=== PATIENT | female | born 1995 | race Caucasian/White ===

== ENCOUNTER → 2019-06-29 12:24 | Outpatient (BNVA) | payer MEDICAID, SELFPAY | PROVIDERS: Family Provider Physician Assistant Medical; PCP Physician Assistant Medical; Visit Provider Psychiatry & Neurology Psychiatry | DX: F60.3 Borderline personality disorder (principal); F41.1 Generalized anxiety disorder | CPT/HCPCS: 99213 ==

== ENCOUNTER → 2019-07-26 11:43 | Outpatient (BNVA) | payer MEDICAID, SELFPAY | PROVIDERS: Family Provider Physician Assistant Medical; PCP Physician Assistant Medical; Visit Provider Social Worker Clinical | DX: F41.1 Generalized anxiety disorder (principal); F33.1 Major depressive disorder, recurrent, moderate | CPT/HCPCS: 90834 ==

== ENCOUNTER → 2019-08-12 11:50 | Outpatient (BNVA) | payer MEDICAID, SELFPAY | PROVIDERS: Family Provider Physician Assistant Medical; PCP Physician Assistant Medical; Visit Provider Specialist | DX: G43.711 Chronic migraine without aura, intractable, with status migrainosus (principal); G40.309 Generalized idiopathic epilepsy and epileptic syndromes, not intractable, without status epilepticus | CPT/HCPCS: 64615; 95970; 99213; J0585 ==

== ENCOUNTER → 2019-08-24 12:09 | Outpatient (BNVA) | payer MEDICAID, SELFPAY | PROVIDERS: Family Provider Physician Assistant Medical; PCP Physician Assistant Medical; Visit Provider Social Worker Clinical | DX: F41.1 Generalized anxiety disorder (principal); F33.1 Major depressive disorder, recurrent, moderate | CPT/HCPCS: 90834 ==

== ENCOUNTER → 2019-09-08 12:04 | Outpatient (BNVA) | payer MEDICAID, SELFPAY | PROVIDERS: Family Provider Physician Assistant Medical; PCP Physician Assistant Medical; Visit Provider Social Worker Clinical | DX: F41.1 Generalized anxiety disorder (principal); F33.2 Major depressive disorder, recurrent severe without psychotic features | CPT/HCPCS: 90834 ==

== ENCOUNTER → 2019-09-21 08:10 | Outpatient (BNVA) | payer MEDICAID, SELFPAY | PROVIDERS: Family Provider Physician Assistant Medical; PCP Physician Assistant Medical; Visit Provider Social Worker Clinical | DX: F41.1 Generalized anxiety disorder (principal); F33.2 Major depressive disorder, recurrent severe without psychotic features | CPT/HCPCS: 90834 ==

== ENCOUNTER → 2019-09-22 08:38 | Outpatient (BNVA) | payer MEDICAID, SELFPAY | PROVIDERS: Family Provider Physician Assistant Medical; PCP Physician Assistant Medical; Visit Provider Psychiatry & Neurology Psychiatry | DX: F60.3 Borderline personality disorder (principal); F41.1 Generalized anxiety disorder | CPT/HCPCS: 99213 ==

== ENCOUNTER → 2019-10-13 08:40 | Outpatient (BNVA) | payer MEDICAID, SELFPAY | PROVIDERS: Family Provider Physician Assistant Medical; PCP Physician Assistant Medical; Visit Provider Social Worker Clinical | DX: F60.3 Borderline personality disorder (principal); F41.1 Generalized anxiety disorder | CPT/HCPCS: 90834 ==

== ENCOUNTER → 2019-10-27 07:51 | Outpatient (BNVA) | payer MEDICAID, SELFPAY | PROVIDERS: Family Provider Physician Assistant Medical; PCP Physician Assistant Medical; Visit Provider Social Worker Clinical | DX: F60.3 Borderline personality disorder (principal); F41.1 Generalized anxiety disorder | CPT/HCPCS: 90834 ==

== ENCOUNTER → 2019-11-04 11:58 | Outpatient (BNVA) | payer MEDICAID, SELFPAY | PROVIDERS: Family Provider Physician Assistant Medical; PCP Physician Assistant Medical; Visit Provider Specialist | DX: G43.711 Chronic migraine without aura, intractable, with status migrainosus (principal); G40.309 Generalized idiopathic epilepsy and epileptic syndromes, not intractable, without status epilepticus | CPT/HCPCS: 64615; 95971; 99213; J0585 ==

== ENCOUNTER → 2019-11-08 08:18 | Outpatient (BNVA) | payer MEDICAID, SELFPAY | PROVIDERS: Family Provider Physician Assistant Medical; PCP Physician Assistant Medical; Visit Provider Social Worker Clinical | DX: F60.3 Borderline personality disorder (principal); F41.1 Generalized anxiety disorder | CPT/HCPCS: 90832 ==

== ENCOUNTER → 2020-04-25 11:34 | Outpatient (BNVA) | payer MEDICAID, SELFPAY | PROVIDERS: Family Provider Physician Assistant Medical; PCP Physician Assistant Medical; Visit Provider Specialist | DX: G40.309 Generalized idiopathic epilepsy and epileptic syndromes, not intractable, without status epilepticus (principal); G43.711 Chronic migraine without aura, intractable, with status migrainosus | CPT/HCPCS: 95971; 99215 ==

== ENCOUNTER 2020-09-13 15:09 | Emergency (ER) | payer MEDICAID, SELFPAY ==
[2020-09-13 15:11] VITALS: BP 142/74; PULSE 97; RESP 18; TEMP 37; O2SAT 98; BMI 39.3
--- NOTE | 2020-09-13 15:27 | XR_ITS ---
WS: [id number] Portable AP upright chest, 09/13/2020 Clinical Data: reduced breath sounds Comparison: PA and lateral chest, 04/15/2018. Findings: No nodules, masses or effusions are seen. The heart is normal. The pulmonary vascularity is not increased. No pneumonia or pneumothorax is seen. There is an electronic device overlying the lef t hilum. XR/XR chest 1V portable [id number] Impression: Negative chest.
--- NOTE | 2020-09-13 15:35 | ED_ITS ---
HPI - Seizure General: Chief Complaint: Seizure Stated Complaint: SEIZURE Time Seen by Provider: 09/13/20 15:20 History of Present Illness: HPI Narrative: The patient is a 24-year-old female with past medical history seizure disorder and poor compliance with her Keppra. She comes to the ER after having 3 seizures today. She has a small scratch to her left forehead but otherwise offers no complaints other than chronic memory problems. She says she also bit her left side of her tongue. There is no significant laceration or bleeding seen in the ED. She says she does not know if she took her Keppra today or yesterday and averages 2 to 3 days/week of ta dell the pill. Her last seizure was 1 month ago when she says she usually has 1/month and that today is atypical for her. She also has past medical history of borderline personality disorder, chronic migraines, and chronic anxiety. MD complaint: seizure Description of Episode: loss of consciousness and tonic-clonic movement Trauma: Yes Seizure History: Yes Place: Home Associated symptoms: Deny chest pain or confusion Review of Systems General: Reports: 10 or more systems reviewed and unremarkable except in HPI and below Const: Denies: fatigue Eyes: Denies: change in vision, blurry vision or eye redness ENMT: Denies: throat pain, swelling of lips/tongue, ear or mastoid pain or nasal congestion Card: Denies: chest pain, palpitations, irregular heart rhythm, edema, dyspnea on exertion or orthopnea Resp: Denies: dyspnea, productive cough or non-productive cough GI: Denies: abdominal pain, diarrhea or GI cramping : Denies: flank pain, difficulty voiding, urinary frequency or urinary urgency Musc: Denies: neck pain, back pain, extremity pain, joint pain, joint redness, limited range of motion or muscle weakness Skin/Breast: Denies: rash, pruritus, erythema, skin pain or skin tenderness Neuro: Denies: headache(s), numbness in extremities, weakness in extremities, sensory changes, difficulty walking, dizziness, confusion or Slurred speech present Psych: Denies: anxiety or depression Endo: Denies: polyuria All/Imm: Denies: urticaria, throat swelling or tongue swelling PFS ED PFSH: Surgical History (Updated 04/25/20 @ 12:56 by Toshia Campos MD) Status post placement of VNS (vagus nerve stimulation) device Family History Other Diabetes Social History Smoking and tobacco status: never smoked Second hand smoke exposure: Yes Smoking risk assessment/counseling performed?: Yes Tobacco counseling given: counseling >3 minutes History of recent travel: No Female Reproductive History: Date of last menstrual period: 12/03/19 Physical Exam Const: COMMON NORMALS: no acute distress, average body habitus, patient oriented x3, no limitations, healthy appearing, alert and well nourished GENERAL APPEARANCE: cooperative, comfortable, well kempt and well developed ORIENTATION/CONSCIOUSNESS: Yes awake, Yes oriented to person, Yes oriented to place and Yes oriented to time HENMT: COMMON NORMALS: normocephalic, external ears normal and Normal external nose present HEAD & SCALP: normal to inspection and normocephalic NOSE: Normal external nose present EXTERNAL EAR: Yes external ears normal MOUTH: Normal oral and palatal mucosa present THROAT: posterior oropharynx normal Eye: COMMON NORMALS: Equal, round and reactive pupils present and EOMs intact bilaterally GENERAL EYE: appearance normal, both eyes and all related structures PUPIL: Yes Equal, round and reactive pupils present Neck/C-Spine: COMMON NORMALS: full ROM, no lymphadenopathy, no meningeal signs and no JVD GENERAL: Yes normal visual inspection Lymph: LYMPHATIC: no lymphadenopathy noted Chest: COMMONS NORMALS: normal inspection of the chest and normal palpation of entire chest wall Resp: COMMON NORMALS: normal respiratory effort, No retractions, No use of accessory muscles, clear to auscultation bilaterally and percussion normal EFFORT & INSPECTION: Yes able to speak in complete sentences AUSCULTATION: clear to auscultation bilaterally PERCUSSION: percussion normal Cardio: COMMON NORMALS: no JVD, regular rate, regular rhythm, S1 normal heart sound present, S2 normal heart sound present and Peripheral pulses 2+ throughout RATE: regular rate RHYTHM: regular rhythm HEART SOUNDS: S1 normal heart sound present and S2 normal heart sound present PERIPHERAL PULSES: Peripheral pulses 2+ throughout GI: COMMON NORMALS: Normal to inspection, nondistended, normoactive bowel sounds present, Soft to palpation, non-tender and no masses INSPECTION: Yes normal to inspection PALPATION: Yes Soft to palpation : COMMON NORMALS: Yes no CVA tenderness BLADDER/KIDNEY EXAM: Yes no CVA tenderness Back/Pelvis: COMMON NORMALS: no CVA tenderness, thoracic and lumbar spine normal to inspection, no thoracic nor lumbar tenderness and thoraco-lumbar ROM normal Extremity: COMMON NORMALS: normal to inspection, full ROM, capillary refill normal, no joint enlargement and no pedal edema GENERAL: Yes normal exam except as noted Neuro: COMMON NORMALS: patient oriented x3, CN's II-XII intact bilaterally, moves all extremities, no focal motor deficits, no sensory deficits noted and gait normal SENSORIUM/ORIENTATION: Yes alert, Yes oriented to person, Yes oriented to place and Yes oriented to time MENINGEAL SIGNS: Yes no meningeal signs Psych: COMMON NORMALS: mental status grossly normal, Normal thought process present, cooperative, normal affect and speech normal APPEARANCE: Yes well kempt ATTITUDE: Yes calm SPEECH: Yes normal speech THOUGHT PROCESS: Normal thought process present Skin: COMMON NORMALS: no rashes or lesions noted GENERAL SKIN EXAM: no rashes or lesions noted Course Vital Signs: Vital signs: Vital Signs Temperature 98.6 F 09/13/20 15:11 Pulse Rate 97 09/13/20 17:50 Respiratory Rate 18 09/13/20 17:50 Blood Pressure 126/78 09/13/20 17:50 Pulse Oximetry 99 09/13/20 17:50 MDM - Seizure MDM Narrative: Medical decision making narrative: The patient came in after a few seizures today at home. She is noncompliant with all of her medications and takes them 2 to 3 days a week she says. She has been stable here and loaded her with the Keppra IV. She is stable for discharge. Discussed with her medication compliance and follow-up with neurology within a week. ER with worsening symptoms Lab Data: Labs: Lab Results 09/13/20 09/13/20 09/13/20 Range/Units 15:57 15:57 15:57 WBC 9.6 (4.0-10.0) 10^3/ uL RBC 4.73 (4.1-5.3) 10^6/u L Hgb 14.4 (11.5-15.3) g/dL Hct 44.2 (37.0-47.0) % MCV 93.4 (81-99) fL MCH 30.4 (28.0-34.0) pg MCHC 32.6 (30.0-36.0) g/dL RDW 12.1 (12.1-15.1) % Plt Count 258 (130-400) 10^3/c mm MPV 10.5 H (7.4-10.4) fL Neut % (Auto) 73.9 % Lymph % (Auto) 18.9 % [place] % (Auto) 5.8 % Eos % (Auto) 0.7 % Baso % (Auto) 0.5 % Neut # (Auto) 7.11 (1.8-7.7) 10^3/u L Lymph # (Auto) 1.8 (0.8-4.8) 10^3/u L [place] # (Auto) 0.6 (0.2-0.9) 10^3/u L Eos # (Auto) 0.1 (0.0-0.8) 10^3/u L Baso # (Auto) 0.1 (0.0-0.1) 10^3/u L Nucleated RBC % (a uto) 0 % Nucleated RBCs # 0.0 /100WBC Sodium 136 (136-145) mmol/L Potassium 3.6 (3.5-5.1) mmol/L Chloride 100 (98-107) mmol/L Carbon Dioxide 18 L (22-29) mmol/L Anion Gap 21.6 H (5-19) BUN 15 (6-20) mg/dL Creatinine 0.9 (0.5-0.9) mg/dL GFR Calculation 78.3 L (90-130) mL/min Glucose 77 (65-115) mg/dL Calculated Osmolal ity 282 L (285-295) mOsm/k g Lactate 1.4 (0.5-2.2) mmol/L Calcium 9.0 (8.5-10.5) mg/dL Total Bilirubin 0.3 (0.15-1.2) mg/dL AST 15 (0-32) U/L ALT 13 (0-33) U/L Alkaline Phosphata se 113 H (35-105) IU/L Creatine Kinase 73 (26-192) U/L Total Protein 7.8 (6.6-8.7) g/dL Albumin 4.5 (3.5-5.2) g/dL Globulin 3.3 (1.3-4.6) g/dL HCG, Qual (Negative) Ethyl Alcohol < 10 (0-10) mg/dL 09/13/20 Range/Units 15:57 WBC (4.0-10.0) 10^3/ uL RBC (4.1-5.3) 10^6/u L Hgb (11.5-15.3) g/dL Hct (37.0-47.0) % MCV (81-99) fL MCH (28.0-34.0) pg MCHC (30.0-36.0) g/dL RDW (12.1-15.1) % Plt Count (130-400) 10^3/c mm MPV (7.4-10.4) fL Neut % (Auto) % Lymph % (Auto) % [place] % (Auto) % Eos % (Auto) % Baso % (Auto) % Neut # (Auto) (1.8-7.7) 10^3/u L Lymph # (Auto) (0.8-4.8) 10^3/u L [place] # (Auto) (0.2-0.9) 10^3/u L Eos # (Auto) (0.0-0.8) 10^3/u L Baso # (Auto) (0.0-0.1) 10^3/u L Nucleated RBC % (a uto) % Nucleated RBCs # /100WBC Sodium (136-145) mmol/L Potassium (3.5-5.1) mmol/L Chloride (98-107) mmol/L Carbon Dioxide (22-29) mmol/L Anion Gap (5-19) BUN (6-20) mg/dL Creatinine (0.5-0.9) mg/dL GFR Calculation (90-130) mL/min Glucose (65-115) mg/dL Calculated Osmolal ity (285-295) mOsm/k g Lactate (0.5-2.2) mmol/L Calcium (8.5-10.5) mg/dL Total Bilirubin (0.15-1.2) mg/dL AST (0-32) U/L ALT (0-33) U/L Alkaline Phosphata se (35-105) IU/L Creatine Kinase (26-192) U/L Total Protein (6.6-8.7) g/dL Albumin (3.5-5.2) g/dL Globulin (1.3-4.6) g/dL HCG, Qual Negative (Negative) Ethyl Alcohol (0-10) mg/dL Discharge Plan Discharge Patient Disposition: Home Clinical Impression: Epileptic seizure Condition: Stable Prescriptions: No Action lamotrigine [Lamictal] 200 mg tablet 200 mg PO BID Qty: 60 RF: 2 propranolol 10 mg tablet 10 mg PO DAILY Qty: 30 RF: 2 levetiracetam [Keppra] 500 mg tablet 500 mg PO BID Qty: 60 RF: 2 One Daily Women[facility] 18 mg iron-400 mcg-450 mg Ca tablet 1 tab PO DAILY RF: 0 metronidazole [Flagyl] 500 mg tablet 500 mg PO BID Qty: 7 RF: 0 lorazepam 2 mg/mL concentrate 2 mg SUBLINGUAL DAILY Qty: 30 RF: 1 buspirone 5 mg tablet 5 mg PO BID Qty: 60 RF: 2 ibuprofen 100 mg Tablet 200 mg PO Q6H PRN (Reason: Pain) RF: 0 Zonegran 100 mg capsule 600 mg PO DAILY RF: 0 escitalopram oxalate 20 mg tablet 20 mg PO DAILY RF: 0 Discharge Orders: Discharge ED (Routine); Ordered 09/13/20 Ordered By: Lebron Barone Referrals: Kin Walker [Primary Care Provider] - Discharge Diet: Advance as tolerated Discharge Activity: Resume usual activity Patient Instructions: Recurrent Seizures Adult (ED), Opioid Safety Activity Restrictions/Additional Instructions: You have likely had a few seizures today from not taking your medication. We have loaded you in your veins with the Keppra. Now please go home and take your medications. Return to the ER with worsening symptoms or more seizures. Follow- up with neurology within a week to discuss further. Coding Level of Care Code ED Donor Support Technician for James [facility] Exam Comprehensive
[2020-09-13] MEDS: LORazepam 2 mg/mL INJ 1 mL 0.5 MG IVP (15:53)
[2020-09-13] MEDS: sodium chloride 0.9% 1,000 ML 999 ML IV (15:53)
[2020-09-13 16:09] LABS: Basophils # 0.1 10^3/uL (0.0-0.1); Basophils % 0.5 %; Eosinophils # 0.1 10^3/uL (0.0-0.8); Eosinophils % 0.7 %; Hematocrit 44.2 % (37.0-47.0); Hemoglobin 14.4 g/dL (11.5-15.3); Lymphocytes # 1.8 10^3/uL (0.8-4.8); Lymphocytes % 18.9 %; Mean Corpuscular HGB Conc 32.6 g/dL (30.0-36.0); Mean Corpuscular Hemoglobin 30.4 pg (28.0-34.0); Mean Corpuscular Volume 93.4 fL (81-99); Mean Platelet Volume 10.5 fL (7.4-10.4); Monocytes # 0.6 10^3/uL (0.2-0.9); Monocytes % 5.8 %; Neutrophils # 7.11 10^3/uL (1.8-7.7); Neutrophils % 73.9 %; Nucleated Red Blood Cells % 0 %; Platelet Count 258 10^3/cmm (130-400); Red Blood Count 4.73 10^6/uL (4.1-5.3); Red Cell Distribution Width 12.1 % (12.1-15.1); White Blood Count 9.6 10^3/uL (4.0-10.0)
--- NOTE | 2020-09-13 16:13 | PC.PHAR ---
PT STATES THAT SHE HAS MOVED A COUPLE OF TIMES IN THE LAST FEW MONTHS. SHE MOVED IN WITH HER FATHER, AND SHE SAID THAT SHE MISSED A LOT OF HER DOCTOR VISITS, SO DIDN'T GET REFILLS. SHE HAS SINCE MOVED BACK IN WITH HER MOTHER AND IS TRYING TO GET EVERYTHING SET BACK UP TO GET HER MEDICATION REGULARLY.
[2020-09-13 16:29] LABS: Alanine Aminotransferase 13 U/L (0-33); Albumin Level 4.5 g/dL (3.5-5.2); Alcohol Level < 10 mg/dL (0-10); Alkaline Phosphatase 113 IU/L (35-105); Anion Gap 21.6 (5-19); Aspartate Amino Transferase 15 U/L (0-32); Blood Urea Nitrogen 15 mg/dL (6-20); Carbon Dioxide 18 mmol/L (22-29); Chloride 100 mmol/L (98-107); Creatine Phosphokinase 73 U/L (26-192); Globulin 3.3 g/dL (1.3-4.6); Glomerular Filtration Rate 78.3 mL/min (90-130); Glucose 77 mg/dL (65-115); Osmolality Calculated 282 mOsm/kg (285-295); Potassium 3.6 mmol/L (3.5-5.1); Sodium 136 mmol/L (136-145); Total Bilirubin 0.3 mg/dL (0.15-1.2); Total Protein 7.8 g/dL (6.6-8.7)
[2020-09-13 16:44] LABS: Lactate (Lactic Acid level) 1.4 mmol/L (0.5-2.2)
[2020-09-13 16:46] LABS: HCG, Serum Qual Negative (Negative)
[2020-09-13 17:03] VITALS: BP 160/84; PULSE 87; RESP 18; O2SAT 97
[2020-09-13 17:50] VITALS: BP 126/78; PULSE 97; RESP 18; O2SAT 99
[2020-09-13 19:18] VITALS: BP 115/71; RESP 18; O2SAT 98
[2020-09-16 15:46] LABS: Levetiracetam Keppra <2.0 mcg/mL
== END 2020-09-13 19:20 | disposition home or self-care (01) ==
PROVIDERS: Emergency Provider Family Medicine; PCP Physician Assistant Medical
DX: G40.909 Epilepsy, unspecified, not intractable, without status epilepticus (principal); Z77.22 Contact with and (suspected) exposure to environmental tobacco smoke (acute) (chronic)
CPT/HCPCS: 71045; 80053; 80177; 80307; 82550; 83605; 84703; 85025; 96361; 96374; 96375; 99284; J1953; J2060; J7030

== ENCOUNTER → 2020-09-19 08:15 | Outpatient (BNVA) | payer MEDICAID, SELFPAY | PROVIDERS: PCP Physician Assistant Medical; Visit Provider Specialist | DX: G40.A09 Absence epileptic syndrome, not intractable, without status epilepticus (principal); G40.309 Generalized idiopathic epilepsy and epileptic syndromes, not intractable, without status epilepticus; G43.711 Chronic migraine without aura, intractable, with status migrainosus; Z96.82 Presence of neurostimulator | CPT/HCPCS: 95971; 99215 ==

== ENCOUNTER → 2020-10-19 09:56 | Outpatient (BNVA) | payer MEDICAID, SELFPAY | PROVIDERS: PCP Physician Assistant Medical; Visit Provider Nurse Practitioner Psychiatric/Mental Health | DX: F41.1 Generalized anxiety disorder (principal); F60.3 Borderline personality disorder; Z03.89 Encounter for observation for other suspected diseases and conditions ruled out | CPT/HCPCS: 99215 ==

== ENCOUNTER → 2020-10-24 08:03 | Outpatient (BNVA) | payer MEDICAID, SELFPAY | PROVIDERS: PCP Physician Assistant Medical; Visit Provider Nurse Practitioner Psychiatric/Mental Health | DX: Z01.89 Encounter for other specified special examinations (principal) | CPT/HCPCS: 80053; 80061; 84439; 84443; 84481 ==

== ENCOUNTER → 2020-11-16 12:40 | Outpatient (BNVA) | payer MEDICAID, SELFPAY | PROVIDERS: PCP Physician Assistant Medical; Visit Provider Nurse Practitioner Psychiatric/Mental Health | DX: F41.1 Generalized anxiety disorder; F60.3 Borderline personality disorder; G40.A09 Absence epileptic syndrome, not intractable, without status epilepticus | CPT/HCPCS: 99213 ==

== ENCOUNTER → 2020-11-21 12:20 | Outpatient (BNVA) | payer MEDICAID, SELFPAY | PROVIDERS: PCP Physician Assistant Medical; Visit Provider Specialist | DX: G40.A09 Absence epileptic syndrome, not intractable, without status epilepticus (principal); G40.909 Epilepsy, unspecified, not intractable, without status epilepticus | CPT/HCPCS: 95971; 99214 ==

== ENCOUNTER → 2021-01-11 12:42 | Outpatient (BNVA) | payer MEDICAID, SELFPAY | PROVIDERS: PCP Physician Assistant Medical; Visit Provider Nurse Practitioner Psychiatric/Mental Health | DX: F41.1 Generalized anxiety disorder (principal); F60.3 Borderline personality disorder; G40.A09 Absence epileptic syndrome, not intractable, without status epilepticus | CPT/HCPCS: 99214 ==

== ENCOUNTER → 2021-01-31 08:39 | Outpatient (BNVA) | payer MEDICAID, SELFPAY | PROVIDERS: PCP Physician Assistant Medical; Visit Provider Counselor Mental Health | DX: F60.3 Borderline personality disorder (principal); F41.1 Generalized anxiety disorder | CPT/HCPCS: 90834 ==

== ENCOUNTER → 2021-02-09 11:56 | Outpatient (BNVA) | payer MEDICAID, SELFPAY | PROVIDERS: PCP Physician Assistant Medical; Visit Provider Counselor Mental Health | DX: F60.3 Borderline personality disorder (principal); F41.1 Generalized anxiety disorder | CPT/HCPCS: 90834 ==

== ENCOUNTER → 2021-02-16 12:37 | Outpatient (BNVA) | payer MEDICAID, SELFPAY | PROVIDERS: PCP Physician Assistant Medical; Visit Provider Counselor Mental Health | DX: F60.3 Borderline personality disorder (principal); F41.1 Generalized anxiety disorder | CPT/HCPCS: 90834 ==

== ENCOUNTER → 2021-02-23 09:58 | Outpatient (BNVA) | payer MEDICAID, SELFPAY | PROVIDERS: PCP Physician Assistant Medical; Visit Provider Counselor Mental Health | DX: F60.3 Borderline personality disorder (principal); F41.1 Generalized anxiety disorder | CPT/HCPCS: 90834 ==

== ENCOUNTER → 2021-02-26 07:39 | Outpatient (BNVA) | payer MEDICAID, SELFPAY | PROVIDERS: PCP Physician Assistant Medical; Visit Provider Nurse Practitioner Psychiatric/Mental Health | DX: F41.1 Generalized anxiety disorder (principal); F60.3 Borderline personality disorder; G40.A09 Absence epileptic syndrome, not intractable, without status epilepticus | CPT/HCPCS: 99214 ==

== ENCOUNTER → 2021-03-16 08:36 | Outpatient (BNVA) | payer MEDICAID, SELFPAY | PROVIDERS: PCP Physician Assistant Medical; Visit Provider Counselor Mental Health | DX: F60.3 Borderline personality disorder (principal); F41.1 Generalized anxiety disorder | CPT/HCPCS: 90834 ==

== ENCOUNTER → 2021-03-30 09:45 | Outpatient (BNVA) | payer MEDICAID, SELFPAY | PROVIDERS: PCP Physician Assistant Medical; Visit Provider Counselor Mental Health | DX: F60.3 Borderline personality disorder (principal); F41.1 Generalized anxiety disorder | CPT/HCPCS: 90834 ==

== ENCOUNTER → 2021-04-12 09:58 | Outpatient (BNVA) | payer MEDICAID, SELFPAY | PROVIDERS: PCP Physician Assistant Medical; Visit Provider Counselor Mental Health | DX: F60.3 Borderline personality disorder (principal); F41.1 Generalized anxiety disorder; F25.0 Schizoaffective disorder, bipolar type | CPT/HCPCS: 90834 ==

== ENCOUNTER → 2021-04-16 08:11 | Outpatient (BNVA) | payer MEDICAID, SELFPAY | PROVIDERS: PCP Physician Assistant Medical; Visit Provider Nurse Practitioner Psychiatric/Mental Health | DX: F41.1 Generalized anxiety disorder (principal); F60.3 Borderline personality disorder; G40.909 Epilepsy, unspecified, not intractable, without status epilepticus; G40.A09 Absence epileptic syndrome, not intractable, without status epilepticus | CPT/HCPCS: 99214 ==

== ENCOUNTER → 2021-04-23 13:09 | Outpatient (BNVA) | payer MEDICAID, SELFPAY | PROVIDERS: PCP Physician Assistant Medical; Visit Provider Specialist | DX: G40.409 Other generalized epilepsy and epileptic syndromes, not intractable, without status epilepticus (principal); G40.A09 Absence epileptic syndrome, not intractable, without status epilepticus; R06.02 Shortness of breath; M54.9 Dorsalgia, unspecified; M54.2 Cervicalgia; M54.6 Pain in thoracic spine; E66.01 Morbid (severe) obesity due to excess calories; Z96.82 Presence of neurostimulator | CPT/HCPCS: 95971; 99214 ==

== ENCOUNTER → 2021-05-14 07:50 | Outpatient (BNVA) | payer MEDICAID, SELFPAY | PROVIDERS: PCP Physician Assistant Medical; Visit Provider Nurse Practitioner Psychiatric/Mental Health | DX: F41.1 Generalized anxiety disorder (principal); F60.3 Borderline personality disorder; G40.909 Epilepsy, unspecified, not intractable, without status epilepticus; G40.A09 Absence epileptic syndrome, not intractable, without status epilepticus | CPT/HCPCS: 99213 ==

== ENCOUNTER → 2021-05-16 09:45 | Outpatient (BNVA) | payer MEDICAID, SELFPAY | PROVIDERS: PCP Physician Assistant Medical; Visit Provider Counselor Mental Health | DX: F60.3 Borderline personality disorder (principal); F41.1 Generalized anxiety disorder | CPT/HCPCS: 90834 ==

== ENCOUNTER → 2021-05-23 11:45 | Outpatient (BNVA) | payer MEDICAID, SELFPAY | PROVIDERS: PCP Physician Assistant Medical; Visit Provider Counselor Mental Health | DX: F41.1 Generalized anxiety disorder (principal); F60.3 Borderline personality disorder | CPT/HCPCS: 90837; 90834 ==

== ENCOUNTER 2021-05-28 09:44 | Outpatient (CLI) | payer MEDICAID, SELFPAY ==
--- NOTE | 2021-05-28 10:30 | XR_ITS ---
WS: [id number] Lateral view of the cervical spine, 05/28/2021 Clinical Data: M54.9 - Dorsalgia, unspecified Comparison: None. Findings: There are stimulator wires which in anteriorly to the C7-T2 vertebra. No cervical compression fractur es are seen. There is no prevertebral soft tissue swelling. XR/XR cervical spine 1V 23540 Impression: Negative lateral view of the cervical spine.
--- NOTE | 2021-05-28 11:00 | XR_ITS ---
WS: [id number] Thoracic spine, AP view, 05/28/2021 Clinical Data: M54.9 - Dorsalgia, unspecified Comparison: None. Findings: There is a levoscoliosis. The paravertebral regions are unremarkable. There is a stimulator generator overlying the left upper chest. The stimulator wires and on the left side of the C7-T2 vertebra. There are clips in the right upper quadrant from cholecystectomy. XR/XR thoracic spine 1V [id number] Impression: Levoscoliosis of the thoracic spine.
== END 2021-05-28 09:45 | disposition home or self-care (01) ==
PROVIDERS: PCP Physician Assistant Medical; Visit Provider Specialist
DX: M54.2 Cervicalgia (principal); M41.84 Other forms of scoliosis, thoracic region
CPT/HCPCS: 72020

== ENCOUNTER → 2021-06-06 12:30 | Outpatient (BNVA) | payer MEDICAID, SELFPAY | PROVIDERS: PCP Physician Assistant Medical; Visit Provider Counselor Mental Health | DX: F60.3 Borderline personality disorder (principal); F41.1 Generalized anxiety disorder | CPT/HCPCS: 90832 ==

== ENCOUNTER 2021-06-06 14:24 | Outpatient (CLI) | payer MEDICAID, SELFPAY ==
[2021-06-06 15:05] LABS: Basophils # 0.1 10^3/uL (0.0-0.1); Basophils % 1.1 %; Eosinophils # 0.1 10^3/uL (0.0-0.8); Eosinophils % 0.9 %; Hematocrit 44.2 % (37.0-47.0); Hemoglobin 14.3 g/dL (11.5-15.3); Lymphocytes # 1.9 10^3/uL (0.8-4.8); Mean Corpuscular HGB Conc 32.4 g/dL (30.0-36.0); Mean Corpuscular Hemoglobin 31.4 pg (28.0-34.0); Mean Corpuscular Volume 96.9 fl (81-99); Mean Platelet Volume 11.3 fL (7.4-10.4); Monocytes # 0.5 10^3/uL (0.2-0.9); Monocytes % 8.2 %; Neutrophils # 3.01 10^3/uL (1.8-7.7); Neutrophils % 54.4 %; Nucleated Red Blood Cells % 0 %; Platelet Count 217 10^3/cmm (130-400); Red Blood Count 4.56 10^6/uL (4.1-5.3); Red Cell Distribution Width 12.2 % (12.1-15.1); White Blood Count 5.5 10^3/uL (4.0-10.0)
[2021-06-07 16:28] LABS: Alternaria Alternata (M6) Ige <0.10 kU/L; Alternaria Class 0; Bermuda Class 0; Bermuda Grass (G2) Ige <0.10 kU/L; Cat Dander (E1) Ige 0.12 kU/L; Cat Dander Class 0/1; Common Ragweed (Short) (W1) Ig <0.10 kU/L; D. Farinae Class 0; Dermatophagoides Class 0; Dermatophagoides Farinae (D2) <0.10 kU/L; Dermatophagoides Pteronyssinus <0.10 kU/L; Dog Dander (E5) Ige <0.10 kU/L; Dog Dander Class 0; Elm (T8) Ige <0.10 kU/L; Elm Class 0; English Plantain (W9) Ige <0.10 kU/L; English Plantain Class 0; House Dust (Greer) (H1) Ige <0.10 kU/L; House Dust (Hollister- Stier) <0.10 kU/L; House Dust Class 0; Immunoglobulin E 123 kU/L (<OR=114); Immunoglobulin E 133 kU/L (<OR=114); Johnson Grass (G10) Ige <0.10 kU/L; Johnson Grass Cl 0; June Grass Class 0; June Grass(Kentucky Blue) (G8) <0.10 kU/L; Lamb'S Quarters (Goose Foot) <0.10 kU/L; Lamb'S Quarters Class 0; Maple (Box Elder) (T1) Ige <0.10 kU/L; Maple Class 0; Meadow Fescue (G4) Ige <0.10 kU/L; Meadow Fescue Class 0; Mucor Racemosus Class 0; Oak (T7) Ige <0.10 kU/L; Oak Class 0; Orchard Grass (Cocksfoot) (G3) <0.10 kU/L; Penicillium Class 0; Penicillium Notatum (M1) Ige <0.10 kU/L; Perennial Rye Grass (G5) Ige <0.10 kU/L; Perennial Rye Grass Class 0; Ragweeed Class 0; Rough Marsh Elder (W16) Ige <0.10 kU/L; Rough Marsh Elder Class 0; Sweet Vernal Class 0; Sweet Vernal Grass (G1) Ige <0.10 kU/L; Timothy Grass (G6) Ige <0.10 kU/L; Timothy Grass Class 0
[2021-06-12 18:58] LABS: Aspergillus Fumigatus, Igg Ab, 8.3 mg/L (<=102)
== END 2021-06-06 14:25 | disposition home or self-care (01) ==
LOC: LAB 14:27
PROVIDERS: PCP Nurse Practitioner Family; Visit Provider Internal Medicine Pulmonary Disease
DX: R06.02 Shortness of breath (principal); J30.81 Allergic rhinitis due to animal (cat) (dog) hair and dander
CPT/HCPCS: 82785; 85025; 86003

== ENCOUNTER → 2021-08-09 13:52 | Outpatient (BNVA) | payer MEDICAID, SELFPAY | PROVIDERS: PCP Nurse Practitioner Family; Visit Provider Nurse Practitioner Psychiatric/Mental Health | DX: F60.3 Borderline personality disorder (principal); F41.1 Generalized anxiety disorder; G40.A09 Absence epileptic syndrome, not intractable, without status epilepticus; G40.909 Epilepsy, unspecified, not intractable, without status epilepticus | CPT/HCPCS: 99214 ==

== ENCOUNTER → 2021-08-21 12:25 | Outpatient (BNVA) | payer MEDICAID, SELFPAY | PROVIDERS: PCP Nurse Practitioner Family; Visit Provider Specialist | DX: G40.A09 Absence epileptic syndrome, not intractable, without status epilepticus (principal); Z96.82 Presence of neurostimulator; Z87.891 Personal history of nicotine dependence | CPT/HCPCS: 95971; 99214 ==

== ENCOUNTER → 2021-08-22 08:14 | Outpatient (BNVA) | payer MEDICAID, SELFPAY | PROVIDERS: PCP Nurse Practitioner Family; Visit Provider Counselor Mental Health | DX: F60.3 Borderline personality disorder (principal); F41.1 Generalized anxiety disorder | CPT/HCPCS: 90832 ==

== ENCOUNTER → 2021-09-05 12:00 | Outpatient (BNVA) | payer MEDICAID, SELFPAY | PROVIDERS: PCP Nurse Practitioner Family; Visit Provider Counselor Mental Health | DX: F60.3 Borderline personality disorder (principal); F41.1 Generalized anxiety disorder | CPT/HCPCS: 90837; 90834 ==

== ENCOUNTER → 2021-09-20 09:48 | Outpatient (BNVA) | payer MEDICAID, SELFPAY | PROVIDERS: PCP Nurse Practitioner Family; Visit Provider Counselor Mental Health | DX: F41.1 Generalized anxiety disorder (principal); F60.3 Borderline personality disorder | CPT/HCPCS: 90791 ==

== ENCOUNTER 2021-09-28 10:20 | Emergency (ER) | payer MEDICAID, SELFPAY ==
[2021-09-28 10:40] VITALS: BP 120/82; PULSE 80; RESP 18; TEMP 36.7; O2SAT 99; BMI 36.7
[2021-09-28 11:59] VITALS: BP 110/72; PULSE 76; RESP 16; O2SAT 99
[2021-09-28 12:10] VITALS: BP 110/72; PULSE 70; RESP 16; O2SAT 99
--- NOTE | 2021-09-28 12:18 | ED_ITS ---
HPI - Dizziness General: Chief Complaint: Dizziness Stated Complaint: Dizziness, Weakness, Forgetfulness Time Seen by Provider: 09/28/21 11:39 History of Present Illness: HPI Narrative: 25-year-old female presents emergency room she has a number ofcomplaints. When initially seen her biggest complaint was dizziness weakness forgetfulness for several weeks and then a moderate tremor that she had noticed recently. Reviewing the triage nurse note she mention chest pain and shortness of breath, she had not mentioned to me during the visit at all. When I queried her on a bit more it sounds more as if it is an anxiety think she feels a tightness in her neck and chest when she has the dizziness and will resolve. She is not any focal neurologic deficits her vision has remained normal. She has had sinus infection recently she had seen her doctor for this dizziness they were just monitoring her symptoms. She has not really taken anything for it. She has had some sinus drainage allergies that she had a sinus infection a few weeks ago. She has noticed if she takes Excedrin for it it seems to help her dizziness. MD elicited complaint: dizziness and lightheadedness Onset (ago): week(s) Timing: gradual onset Severity: mild Description: sense of movement Exacerbating factors: movement/ambulation and exertion Relieving factors: nothing Associated symptoms: Denies change in hearing, chest pain, chills, cough, diaphoresis, ear discharge, ear pressure, fevers/chills, headache(s), malaise, nausea, nasal congestion, palpitations, rash, short of breath, syncope, tinnitus, vomiting or weakness Associated neuro symptoms: Deny confusion, difficulty speaking, dysphagia, diplopia, extremity weakness, facial numbness, facial weakness, gait changes, numbness in extremities or visual changes Review of Systems Const: Denies: fever(s), chills, malaise or diaphoresis ENMT: Denies: ear discharge, change in hearing, tinnitus or nasal congestion Card: Denies: chest pain, palpitations or syncope Resp: Denies: dyspnea, productive cough, non-productive cough or wheezing GI: Denies: abdominal pain, nausea, vomiting or dysphagia : Denies: flank pain, difficulty voiding, dysuria, urinary frequency or urinary urgency Neuro: Denies: headache(s), numbness in extremities or confusion PFS ED PFSH: Medical History Psychiatric care Surgical History Status post placement of VNS (vagus nerve stimulation) device Family History Other Diabetes Social History Smoking and tobacco status: former smoker Second hand smoke exposure: Yes (family smokes, exposure as child) History of recent travel: No Female Reproductive History: Date of last menstrual period: 12/03/19 Physical Exam Const: COMMON NORMALS: no acute distress GENERAL APPEARANCE: cooperative and comfortable ORIENTATION/CONSCIOUSNESS: Yes awake, Yes oriented to person, Yes oriented to place and Yes oriented to time HENMT: COMMON NORMALS: normocephalic, atraumatic and hearing grossly normal bilaterally HEAD & SCALP: normocephalic and atraumatic TYMPANIC MEMBRANE: TM abnormal TM laterality: left Details: fluid behind TM (Clear serous fluid) Neck/C-Spine: COMMON NORMALS: no JVD Resp: COMMON NORMALS: normal respiratory effort, No retractions, No use of accessory muscles and clear to auscultation bilaterally AUSCULTATION: clear to auscultation bilaterally Cardio: COMMON NORMALS: no JVD, regular rate, regular rhythm and No murmurs present (Cardio) RATE: regular rate RHYTHM: regular rhythm GI: COMMON NORMALS: Soft to palpation and No hepatosplenomegaly present AUSCULTATION: Yes normoactive bowel sounds PALPATION: Yes Soft to palpation, No Tenderness to palpation present (GI), No Guarding due to palpation present (GI) and Yes No hepatosplenomegaly present Extremity: COMMON NORMALS: normal to inspection, capillary refill normal, no clubbing, cyanosis or edema, no calf tenderness and no pedal edema Neuro: SENSORIUM/ORIENTATION: Yes oriented to person, Yes oriented to place and Yes oriented to time Skin: COMMON NORMALS: no rashes or lesions noted GENERAL SKIN EXAM: no rashes or lesions noted Course Vital Signs: Vital signs: Vital Signs Temperature 98.1 F 09/28/21 10:40 Pulse Rate 16 L 09/28/21 12:38 Respiratory Rate 19 H 09/28/21 12:38 Blood Pressure 111/85 09/28/21 12:38 Pulse Oximetry 99 09/28/21 12:38 MDM - Dizziness Medical Decision Making Patient is a history of seizures has not had any seizures while here. She does have some fluid in her left ear. We will give her meclizine to use as needed and a short course of prednisone follow-up with primary care doctor. Medical Records I reviewed the patient's medical records. Lab Data I reviewed the patient's lab results. Discharge Plan Discharge Patient Disposition: Home Clinical Impression: Labyrinthitis, Primary generalized epilepsy, major, Serous otitis media Condition: Stable Prescriptions: New prednisone 20 mg tablet 20 mg PO TID Qty: 15 0RF Rx Instructions: 1 p.o. 3 times daily x3 days, 1 p.o. twice daily x2 days, 1 p.o. daily x2 days meclizine 25 mg tablet 25 mg PO DAILY Qty: 14 0RF No Action Advil Dual Action 125-250 mg tablet 1 tab PO DAILY PRN0RF levetiracetam [Keppra XR] 750 mg tablet extended release 24 hr 1,500 mg PO DAILY Qty: 60 5RF buspirone 30 mg tablet 30 mg PO BID Qty: 60 1RF Rx Instructions: Take one tablet by mouth morning and evening fluoxetine 40 mg capsule 40 mg PO QAM Qty: 30 1RF Rx Instructions: Take one capsule by mouth every morning lorazepam 2 mg/mL concentrate 2 mg SUBLINGUAL BID PRN (Reason: seizure activity) 15 Days Qty: 30 1RF Rx Instructions: Take 1 ml at onset of seizure. Do not exceed 2 doses/day. albuterol sulfate [ProAir HFA] 90 mcg/actuation HFA aerosol inhaler 1 inh inhalation QID Qty: 8.5 3RF Zonegran 100 mg capsule 300 mg PO DAILY Qty: 90 5RF Discharge Orders: Discharge ED (Routine); Ordered 09/28/21 Ordered By: Terry Suazo Referrals: Ruma Greenfield [Primary Care Provider] - Discharge Diet: Usual diet Discharge Activity: Resume usual activity Patient Instructions: Opioid Safety Activity Restrictions/Additional Instructions: Follow-up with your primary care doctor if symptoms persist. Coding Level of Care Code ED Commercial Sales Consultant for James Wagner
--- NOTE | 2021-09-28 12:20 | ECG_ITS ---
[facility] Test Date: 2021-09-28 Pat Name: Johana Lehman Department: Room: Gender: Female Lvn: : 1995 Requested By: Terry Campos Order Number: [id number] Juani MD: Elina Scott M.D. Measurements Intervals [place] Rate: 64 P: 51 OR: 128 QRS: 26 QRSD: 86 T: 34 QT: 407 QTc: 421 Interpretive Statements SINUS RHYTHM No previous ECG available for comparison Electronically Signed On 09-28-2021 20:11:10 CDT by Elina Scott M.D. [email or web address]
[2021-09-28 12:38] VITALS: BP 111/85; PULSE 16; RESP 19; O2SAT 99
== END 2021-09-28 12:39 | disposition home or self-care (01) ==
PROVIDERS: Emergency Provider Family Medicine; PCP Nurse Practitioner Family
DX: H83.02 Labyrinthitis, left ear (principal); G40.409 Other generalized epilepsy and epileptic syndromes, not intractable, without status epilepticus; H65.92 Unspecified nonsuppurative otitis media, left ear; Z87.891 Personal history of nicotine dependence; Z96.82 Presence of neurostimulator
CPT/HCPCS: 93005; 99283

== ENCOUNTER → 2021-11-13 14:31 | Outpatient (BNVA) | payer MEDICAID, SELFPAY | PROVIDERS: PCP Nurse Practitioner Family; Visit Provider Nurse Practitioner Psychiatric/Mental Health | DX: Z79.899 Other long term (current) drug therapy (principal); G40.909 Epilepsy, unspecified, not intractable, without status epilepticus | CPT/HCPCS: 99214 ==

== ENCOUNTER → 2021-11-26 15:06 | Outpatient (BNVA) | payer MEDICAID, SELFPAY | PROVIDERS: PCP Nurse Practitioner Family; Visit Provider Specialist | DX: G40.A09 Absence epileptic syndrome, not intractable, without status epilepticus (principal); Z96.82 Presence of neurostimulator | CPT/HCPCS: 99214 ==

== ENCOUNTER → 2021-12-20 09:50 | Outpatient (BNVA) | payer MEDICAID, SELFPAY | PROVIDERS: PCP Nurse Practitioner Family; Visit Provider Internal Medicine Pulmonary Disease | DX: J45.20 Mild intermittent asthma, uncomplicated (principal); Z77.22 Contact with and (suspected) exposure to environmental tobacco smoke (acute) (chronic); J30.81 Allergic rhinitis due to animal (cat) (dog) hair and dander | CPT/HCPCS: 99214 ==

== ENCOUNTER → 2021-12-27 13:48 | Outpatient (BNVA) | payer MEDICAID, SELFPAY | PROVIDERS: PCP Nurse Practitioner Family; Visit Provider Nurse Practitioner Psychiatric/Mental Health | DX: G40.909 Epilepsy, unspecified, not intractable, without status epilepticus (principal); Z79.899 Other long term (current) drug therapy; F60.3 Borderline personality disorder; F41.1 Generalized anxiety disorder; F39 Unspecified mood [affective] disorder | CPT/HCPCS: 80053 ==

== ENCOUNTER 2022-03-13 14:09 | Outpatient (CLI) | payer MEDICAID, SELFPAY ==
[2022-03-14 10:33] LABS: Levetiracetam Immunoassy 22.3 mcg/mL (6.0-46.0)
[2022-03-18 12:53] LABS: Zonisamide (Zonegran) 18.8 mcg/mL (10.0-40.0)
== END 2022-03-13 14:10 | disposition home or self-care (01) ==
LOC: LAB 14:15
PROVIDERS: PCP Nurse Practitioner Family; Visit Provider Specialist
DX: G40.309 Generalized idiopathic epilepsy and epileptic syndromes, not intractable, without status epilepticus (principal); Z79.899 Other long term (current) drug therapy; Z51.81 Encounter for therapeutic drug level monitoring
CPT/HCPCS: 36415; 80177; 80203

== ENCOUNTER → 2022-03-14 13:05 | Outpatient (BNVA) | payer MEDICAID, SELFPAY | PROVIDERS: PCP Nurse Practitioner Family; Referring Provider Specialist; Visit Provider Specialist | DX: F41.1 Generalized anxiety disorder (principal); F60.3 Borderline personality disorder; G40.A09 Absence epileptic syndrome, not intractable, without status epilepticus | CPT/HCPCS: 95812; 95816 ==

== ENCOUNTER 2022-04-15 13:37 | Emergency (ER) | payer MEDICAID, SELFPAY ==
--- NOTE | 2022-04-15 13:38 | ED_ITS ---
HPI - Seizure General: Chief Complaint: Seizure Stated Complaint: SEIZURES Time Seen by Provider: 04/15/22 13:38 History of Present Illness: HPI Narrative: Ms. 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 She reports being at her baseline health, did miss her medications yesterday, had a seizure lasting 2 to 3 minutes at a restaurant with tongue bite but no loss of continence. She denies prodrome. Currently has mild generalized aches. No other specific changes in health, exacerbating, or alleviating factors identified. Onset (ago): minute(s) Description of Episode: loss of consciousness, tonic-clonic movement and post- event confusion Duration of episode: 2 Seizure History: Yes Place: Restaurant Possible Precipitating Event: medication (Missed yesterday's dose) Review of Systems General: Reports: 10 or more systems reviewed and unremarkable except in HPI and below PFSH ED PFSH: Medical History Depressed mood Mood disorder Psychiatric care Surgical History Status post placement of VNS (vagus nerve stimulation) device Family History Other Diabetes Social History Smoking and tobacco status: former smoker Second hand smoke exposure: Yes (family smokes, exposure as child) History of recent travel: No Female Reproductive History: Date of last menstrual period: 12/03/19 Physical Exam Const: COMMON NORMALS: alert GENERAL APPEARANCE: cooperative and well developed HENMT: COMMON NORMALS: normocephalic and atraumatic HEAD & SCALP: normocephalic and atraumatic THROAT: posterior oropharynx normal OTHER: Small tongue bite left lateral tongue, no repairable laceration active bleeding. Eye: COMMON NORMALS: conjunctivae normal CONJUNCTIVA: Yes conjunctivae normal SCLERA: sclerae normal Neck/C-Spine: COMMON NORMALS: supple GENERAL: Yes trachea midline Resp: COMMON NORMALS: clear to auscultation bilaterally EFFORT & INSPECTION: Yes able to speak in complete sentences AUSCULTATION: clear to auscultation bilaterally Cardio: COMMON NORMALS: regular rate and regular rhythm RATE: regular rate RHYTHM: regular rhythm GI: COMMON NORMALS: Soft to palpation PALPATION: Yes Soft to palpation and No Tenderness to palpation present (GI) Extremity: GENERAL: Yes normal exam except as noted and No edema Neuro: COMMON NORMALS: moves all extremities SENSORIUM/ORIENTATION: Yes alert and No Orientation impaired Psych: COMMON NORMALS: mental status grossly normal and Normal thought process present THOUGHT PROCESS: Normal thought process present Course Vital Signs: Vital signs: Vital Signs Temperature 98.7 F 04/15/22 13:44 Pulse Rate 84 04/15/22 18:40 Respiratory Rate 14 04/15/22 13:44 Blood Pressure 116/71 04/15/22 14:02 Pulse Oximetry 98 04/15/22 18:40 Oxygen Delivery Me thod 04/15/22 15:00 MDM - Seizure MDM Narrative Medical decision making narrative: 26-year-old lady presenting due to seizure. Exam as above. No focal neurologic episodes. No significant hematologic or metabolic abnormalities. Urinalysis concerning for urinary tract infection. Given provided clinical history and exam no indication for imaging at this time. During ED course patient given analgesia, Keppra, and Macrobid. Most likely etiology of patient's symptoms is underlying seizure disorder with this medication and urinary tract infection. The results of ED evaluation were discussed with the patient including prescriptions and/or symptomatic cares (if applicable) including appropriate and responsible use, followup plan, and return precautions. The patient verbalized understanding and felt safe for discharge. Medical Records Attestation: I reviewed the patient's medical records. Lab Data Attestation: I reviewed the patient's lab results. 04/15/22 14:30 04/15/22 14:30 Labs: Laboratory Results WBC 9.1 10^3/uL (4.0-10.0) 04/15/22 14:30 RBC 4.77 10^6/uL (4.1-5.3) 04/15/22 14:30 Hgb 14.2 g/dL (11.5-15.3) 04/15/22 14:30 Hct 43.8 % (37.0-47.0) 04/15/22 14:30 MCV 91.8 fl (81-99) 04/15/22 14:30 MCH 29.8 pg (28.0-34.0) 04/15/22 14:30 MCHC 32.4 g/dL (30.0-36.0) 04/15/22 14: RDW 12.2 % (12.1-15.1) 04/15/22 14:30 Plt Count 268 10^3/cmm (130-400) 04/15/22 14:30 MPV 10.6 fL (7.4-10.4) H 04/15/22 14: Neut % (Auto) 80.8 % 04/15/22 14:30 Lymph % (Auto) 13.4 % 04/15/22 14:30 [place] % (Auto) 5.0 % 04/15/22 14: Eos % (Auto) 0.2 % 04/15/22: Baso % (Auto) 0.4 % 04/15/22 14:30 Neut # (Auto) 7.37 10^3/uL (1.8-7.7) 04/15/22 14: Lymph # (Auto) 1.2 10^3/uL (0.8-4.8) 04/15/22 14:30 [place] # (Auto) 0.5 10^3/uL (0.2-0.9) 04/15/22 14:30 Eos # (Auto) 0.0 10^3/uL (0.0-0.8) 04/15/22 14:30 Baso # (Auto) 0.0 10^3/uL (0.0-0.1) 04/15/22 14: Nucleated RBC % (auto) 0 % 04/15/22 14: Nucleated RBCs # 0.0 /100WBC 04/15/22 14:30 Sodium 139 mmol/L (136-145) 04/15/22 14:30 Potassium 3.7 mmol/L (3.5-5.1) 04/15/22 14:30 Chloride 104 mmol/L (98-107) 04/15/22 14:30 Carbon Dioxide 22 mmol/L (22-29) 04/15/22 14:30 Anion Gap 16.7 (5-19) 04/15/22 14:30 BUN 18 mg/dL (6-20) 04/15/22 14:30 Creatinine 0.9 mg/dL (0.5-0.9) 04/15/22 14:30 GFR Calculation 76.9 mL/min (90-130) L 04/15/22 14:30 Glucose 92 mg/dL (65-115) 04/15/22 14:30 Calculated Osmolality 290 mOsm/kg (285-295) 04/15/22 14:30 Calcium 9.8 mg/dL (8.5-10.5) 04/15/22 14:30 Total Bilirubin 0.2 mg/dL (0.15-1.2) 04/15/22 14:30 AST 19 U/L (0-32) 04/15/22 14:30 ALT 16 U/L (0-33) 04/15/22 14:30 Alkaline Phosphatase 106 U/L (35-105) H 04/15/22 14:30 Total Protein 7.7 g/dL (6.6-8.7) 04/15/22 14:30 Albumin 4.3 g/dL (3.5-5.2) 04/15/22 14:30 Globulin 3.4 g/dL (1.3-4.6) 04/15/22 14:30 HCG, Qual Negative (Negative) 04/15/22 15:58 Urine Color Yellow (Yellow) 04/15/22 15:58 Urine Appearance Hazy (CLEAR) A 04/15/22 15:58 Urine pH 6.5 (5-7) 04/15/22 15:58 Ur Specific [place] 1.020 (1.005-1.030) 04/15/22 15:58 Urine Protein Neg (Negative) 04/15/22 15:58 Urine Glucose (UA) Norm (Normal) 04/15/22 15:58 Urine Ketones Negative (Negative) 04/15/22 15:58 Urine Blood 2+ (Negative) H 04/15/22 15:58 Urine Nitrate Negative (Negative) 04/15/22 15:58 Urine Bilirubin Neg (Negative) 04/15/22 15:58 Urine Urobilinogen Norm mg/dL (Negative) 04/15/22 15:58 Ur Leukocyte Esterase 1+ (Negative) H 04/15/22 15:58 Urine RBC 5-10 /hpf (0-2) H 04/15/22 15:58 Urine WBC 5-10 /hpf (0-5) H 04/15/22 15:58 Ur Squamous Epith Cells 0-4 /hpf (0-5) H 04/15/22 15:58 Amorphous Sediment 2+ /hpf 04/15/22 15:58 Urine Bacteria 1+ /hpf (NONE) H 04/15/22 15:58 Urine Mucus Trace /hpf 04/15/22 15:58 Discharge Plan Discharge Patient Disposition: Home Clinical Impression: Generalized seizure, UTI (urinary tract infection) Condition: Stable Prescriptions: No Action levetiracetam [Keppra XR] 750 mg tablet extended release 24 hr 1,500 mg PO DAILY Qty: 60 5RF lorazepam 2 mg/mL concentrate 2 mg SUBLINGUAL BID PRN (Reason: seizure activity) 15 Days Qty: 30 1RF Rx Instructions: Take 1 ml at onset of seizure. Do not exceed 2 doses/day. sertraline 100 mg tablet 200 mg PO DAILY Qty: 60 1RF Rx Instructions: Take 2 tablets by mouth every morning montelukast 10 mg Tablet 10 mg PO DAILY Xyzal 5 mg Tablet 5 mg PO DAILY zonisamide 100 mg capsule 300 mg PO BEDTIME ProAir HFA 90 mcg/actuation HFA aerosol inhaler 1 inh inhalation QID PRN (Reason: Shortness Of Breath) Discharge Orders: Discharge ED (Routine); Ordered 04/15/22 Ordered By: Jimmy Menard Referrals: Ruma Greenfield FNP [Primary Care Provider] - Discharge Diet: Usual diet Discharge Activity: Limit activity as instructed Patient Instructions: Urinary Tract Infection in Women (ED), Epilepsy (ED) Activity Restrictions/Additional Instructions: Thank you for visiting the emergency department. You were seen evaluated for seizures. The exact cause of your seizures is unclear though may be related to missed dose of medication or minor urinary tract infection. Please follow-up with your neurologist. Please ensure that you are taking your medications as prescribed. Please follow all seizure precautions as discussed. Return to the emergency department for anything that you are concerned about a feel needs emergency department evaluation. Stand Alone Forms: Work/School Release Coding Level of Care Code ED Inspector [employer] Fwd Exam Comprehensive
[2022-04-15 13:44] VITALS: BP 119/84; PULSE 95; RESP 14; TEMP 37.1; O2SAT 98; BMI 38.4
[2022-04-15 14:02] VITALS: BP 116/71; PULSE 101; O2SAT 97
[2022-04-15] MEDS: levETIRAcetam 750 MG in sodium chloride 0.9% (100 ml) 100 ML 430 MG IV (14:13)
[2022-04-15 14:44] LABS: Basophils % 0.4 %; Eosinophils % 0.2 %; Hematocrit 43.8 % (37.0-47.0); Hemoglobin 14.2 g/dL (11.5-15.3); Lymphocytes # 1.2 10^3/uL (0.8-4.8); Lymphocytes % 13.4 %; Mean Corpuscular HGB Conc 32.4 g/dL (30.0-36.0); Mean Corpuscular Hemoglobin 29.8 pg (28.0-34.0); Mean Corpuscular Volume 91.8 fl (81-99); Mean Platelet Volume 10.6 fL (7.4-10.4); Monocytes # 0.5 10^3/uL (0.2-0.9); Neutrophils # 7.37 10^3/uL (1.8-7.7); Neutrophils % 80.8 %; Nucleated Red Blood Cells % 0 %; Platelet Count 268 10^3/cmm (130-400); Red Blood Count 4.77 10^6/uL (4.1-5.3); Red Cell Distribution Width 12.2 % (12.1-15.1); White Blood Count 9.1 10^3/uL (4.0-10.0)
[2022-04-15 15:00] VITALS: PULSE 91; O2SAT 97
[2022-04-15 15:16] LABS: Alanine Aminotransferase 16 U/L (0-33); Albumin Level 4.3 g/dL (3.5-5.2); Alkaline Phosphatase 106 U/L (35-105); Anion Gap 16.7 (5-19); Aspartate Amino Transferase 19 U/L (0-32); Blood Urea Nitrogen 18 mg/dL (6-20); Calcium 9.8 mg/dL (8.5-10.5); Carbon Dioxide 22 mmol/L (22-29); Chloride 104 mmol/L (98-107); Globulin 3.4 g/dL (1.3-4.6); Glomerular Filtration Rate 76.9 mL/min (90-130); Glucose 92 mg/dL (65-115); Osmolality Calculated 290 mOsm/kg (285-295); Potassium 3.7 mmol/L (3.5-5.1); Sodium 139 mmol/L (136-145); Total Bilirubin 0.2 mg/dL (0.15-1.2); Total Protein 7.7 g/dL (6.6-8.7)
[2022-04-15 16:29] LABS: HCG Qualitative Urine. Negative (Negative)
[2022-04-15 17:03] LABS: Bilirubin Urine Neg (Negative); Blood Urine 2+ (Negative); Glucose Urine UA Norm (Normal); Ketones Urine Negative (Negative); Nitrate Urine Negative (Negative); Protein Urine Neg (Negative); Urine Appearance Hazy (CLEAR); Urine Color Yellow (Yellow); Urobilinogen Urine Norm (Negative); pH Urine 6.5 (5-7)
[2022-04-15 17:04] LABS: Add Urine Culture? Yes; Add Urine Microscopic? YES; Amorphous Sediment Urine 2+ /hpf; Bacteria Urine 1+ /hpf; Leukocyte Esterase Urine 1+ (Negative); Mucus Urine TRACE /hpf; Squamous Epithelial Cell Urine 0-4 /hpf (0-5)
[2022-04-15] MEDS: acetaminophen 500 mg Tablet 1000 MG PO (17:39)
[2022-04-15] MEDS: ketorolac 30 mg/mL INJ IM (17:39)
[2022-04-15] MEDS: nitrofurantoin SR (BID) 100 mg Capsule PO (17:39)
[2022-04-15 18:40] VITALS: PULSE 84; O2SAT 98
== END 2022-04-15 18:35 | disposition home or self-care (01) ==
PROVIDERS: Emergency Provider Emergency Medicine; PCP Nurse Practitioner Family
DX: R56.9 Unspecified convulsions (principal); N39.0 Urinary tract infection, site not specified
CPT/HCPCS: 80053; 81001; 81025; 85025; 87086; 96365; 96372; 99284; J1885; J1953

== ENCOUNTER → 2022-05-07 07:56 | Outpatient (BNVA) | payer MEDICAID, SELFPAY | PROVIDERS: PCP Nurse Practitioner Family; Visit Provider Specialist | DX: G40.309 Generalized idiopathic epilepsy and epileptic syndromes, not intractable, without status epilepticus (principal); Z96.82 Presence of neurostimulator; Z45.42 Encounter for adjustment and management of neurostimulator | CPT/HCPCS: 95970; 99214 ==

== ENCOUNTER → 2022-05-09 09:49 | Outpatient (BNVA) | payer MEDICAID, SELFPAY | PROVIDERS: PCP Nurse Practitioner Family; Visit Provider Specialist | DX: G40.309 Generalized idiopathic epilepsy and epileptic syndromes, not intractable, without status epilepticus (principal); F41.1 Generalized anxiety disorder; Z96.82 Presence of neurostimulator; Z45.42 Encounter for adjustment and management of neurostimulator | CPT/HCPCS: 95971; 99212 ==

== ENCOUNTER → 2022-06-13 07:58 | Outpatient (BNVA) | payer MEDICAID, SELFPAY | PROVIDERS: PCP Nurse Practitioner Family; Visit Provider Thoracic Surgery (Cardiothoracic Vascular Surgery) | DX: Z96.89 Presence of other specified functional implants (principal) | CPT/HCPCS: 99202 ==

== ENCOUNTER 2022-07-23 07:41 | Day surgery (SDC) | payer MEDICAID, SELFPAY ==
[2022-07-22 11:00] VITALS: BMI 37.5
[2022-07-23] VITALS (9 sets, daily range): BP systolic 99–123; BP diastolic 68–83; PULSE 61–98; RESP 12–18; TEMP 36.3–36.8; O2SAT 94–98
--- NOTE | 2022-07-23 08:24 | P.ANESASSM_ITS ---
Pre-Anesthetic Assessment Height/Weight: Height 1.57 m Weight 92.986 kg Temp Pulse Resp BP Pulse Ox O2 Del Method 97.6 F 90 16 121/78 98 07/23/22 07:59 07/23/22 07:59 07/23/22 07:59 07/23/22 07:59 07/23/22 07:59 07/23/22 08:00 Preop Diagnosis: Vagal nerve stimulator generator end of service Operation Date: 07/23/22 09:10 Proposed Procedures p VNS Generator Exchange 89047,G40.909(Not Applicable) - Alcides Pickett MD Familial anesthetic complications: None Was Beta Rajan taken within 24 hours: N/A Was Clonidine taken within 24 hours: N/A Last intake: Intake Last Liquid Date 07/22/22 Last Liquid Time 21:00 Last Solid Date 07/22/22 Last Solid Time 17:00 Social No alcohol and No tobacco Exam alert, oriented x 3, clear to auscultation bilaterally and regular rate & rhythm Airway Mallampati: Class II Dentition: chipped Pulmonary Asthma Metabolic Morbid Obesity Neuropsych Seizure Anesthetic Plan ASA status: 3 Anesthesia: MAC Risk of > 500 ml blood loss (7ml/kg in children): No Medications/Allergies Home Medications Medication Instructions Recorded Confirmed Last Taken Type lorazepam 2 mg/mL oral concentrate 2 mg sublingual BID PRN seizure 11/26/21 07/23/22 07/22/22 Rx activity 15 days #30 mL sertraline 100 mg tablet 200 mg PO DAILY #60 tabs 04/04/22 07/22/22 07/22/22 Rx albuterol sulfate 90 mcg/actuation 1 inh inhalation QID PRN Shortness 04/15/22 07/23/22 07/18/22 History aerosol inhaler (ProAir HFA) Of Breath levocetirizine 5 mg tablet (Xyzal) 5 mg PO DAILY 04/15/22 07/23/22 07/22/22 History montelukast 10 mg tablet 10 mg PO DAILY 04/15/22 07/22/22 07/22/22 History levetiracetam 750 mg 1,500 mg PO DAILY #60 tabs 05/07/22 07/22/22 07/22/22 Rx tablet,extended release 24 hr (Keppra XR) zonisamide 100 mg capsule 400 mg PO BEDTIME 30 days #120 caps 05/07/22 07/22/22 07/22/22 Rx Allergies Allergy/AdvReac Type Severity Reaction Status Date / Time cat dander Allergy Unknown Verified 07/23/22 07:56 dog dander Allergy Unknown Verified 07/23/22 07:56 latex Allergy ALGY-Rash Verified 07/23/22 07:56 mold Allergy Unknown Verified 07/23/22 07:56 prednisone AdvReac Intermediate Shaky & Verified 07/23/22 07:56 abd pain [facility] Anesthesia Medical History Depressed mood Mood disorder Psychiatric care Surgical History Status post placement of VNS (vagus nerve stimulation) device Family History Other Diabetes Social History Smoking and tobacco status: former smoker Second hand smoke exposure: Yes (family smokes, exposure as child) History of recent travel: No Female Reproductive History Date of last menstrual period: 07/22/22 Data Anesthesia Cardiac Studies: No Data to Display
[2022-07-23] MEDS: sodium chloride 0.9% 1,000 ML 30 ML IV (08:34)
[2022-07-23 09:04] LABS: Basophils # 0.1 10^3/uL (0.0-0.1); Basophils % 0.7 %; Eosinophils # 0.1 10^3/uL (0.0-0.8); Eosinophils % 2.1 %; Hemoglobin 12.8 g/dL (11.5-15.3); Lymphocytes # 2.4 10^3/uL (0.8-4.8); Mean Corpuscular HGB Conc 31.2 g/dL (30.0-36.0); Mean Corpuscular Hemoglobin 28.2 pg (28.0-34.0); Mean Corpuscular Volume 90.3 fl (81-99); Mean Platelet Volume 10.7 fL (7.4-10.4); Monocytes # 0.4 10^3/uL (0.2-0.9); Neutrophils # 3.66 10^3/uL (1.8-7.7); Neutrophils % 54.9 %; Nucleated Red Blood Cells % 0 %; Platelet Count 287 10^3/cmm (130-400); Red Blood Count 4.54 10^6/uL (4.1-5.3); Red Cell Distribution Width 13.4 % (12.1-15.1); White Blood Count 6.7 10^3/uL (4.0-10.0)
[2022-07-23 09:13] LABS: HCG, Serum Qual Negative (Negative)
[2022-07-23 09:18] LABS: Anion Gap 15.9 (5-19); Blood Urea Nitrogen 20 mg/dL (6-20); Carbon Dioxide 23 mmol/L (22-29); Chloride 104 mmol/L (98-107); Glomerular Filtration Rate 88.1 mL/min (90-130); Glucose 104 mg/dL (65-115); Osmolality Calculated 291 mOsm/kg (285-295); Potassium 3.9 mmol/L (3.5-5.1); Sodium 139 mmol/L (136-145)
[2022-07-23] MEDS: ceFAZolin 2,000 MG in sodium chloride 0.9% (plus) 50 ML 100 MG IV (09:57)
--- NOTE | 2022-07-23 10:01 | PC.NURSE ---
patient unable to void for ua. tried to in and out cath using generation technician with no results. informed Dr. Osorio unable to get UA. No new orders noted.
--- NOTE | 2022-07-23 10:06 | P.HP_ITS ---
Providers/Chief Complaint Admitting Physician: Dr. Pickett Referring Physican: Dr. Campos Primary Care Provider: Ruma Greenfield Chief Complaint: G40.898 VNS generator end of service History of Present Illness Johana Lehman is a 26 year old female whom I originally saw in consultation as an outpatient on June 13. She has a seizure disorder with a current VNS generator system near end of service, originally implanted in 2018. Her mother has noted substantial improvement of her seizure activity with less medication requirement since implantation of the vagal nerve stimulator. We have discussed previously concerning recommendation for generator exchange and potential complications such as infection, bleeding, injury to the leads, or malfunction. Review of Systems Const: Denies: fever(s), chills or fatigue ENMT: Denies: throat pain Card: Denies: chest pain or palpitations Resp: Denies: dyspnea or productive cough GI: Reports: nausea Musc: Reports: neck pain and back pain Neuro: Reports: headache(s) Psych: Reports: depression; Denies: anxiety Medications/Allergies Home Medications Medication Instructions Recorded Confirmed Last Taken Type lorazepam 2 mg/mL oral concentrate 2 mg sublingual BID PRN seizure 11/26/21 07/23/22 07/22/22 Rx activity 15 days #30 mL sertraline 100 mg tablet 200 mg PO DAILY #60 tabs 04/04/22 07/22/22 07/22/22 Rx albuterol sulfate 90 mcg/actuation 1 inh inhalation QID PRN Shortness 04/15/22 07/23/22 07/18/22 History aerosol inhaler (ProAir HFA) Of Breath levocetirizine 5 mg tablet (Xyzal) 5 mg PO DAILY 04/15/22 07/23/22 07/22/22 History montelukast 10 mg tablet 10 mg PO DAILY 04/15/22 07/22/22 07/22/22 History levetiracetam 750 mg 1,500 mg PO DAILY #60 tabs 05/07/22 07/22/22 07/22/22 Rx tablet,extended release 24 hr (Keppra XR) zonisamide 100 mg capsule 400 mg PO BEDTIME 30 days #120 caps 05/07/22 07/22/22 07/22/22 Rx Allergies Allergy/AdvReac Type Severity Reaction Status Date / Time cat dander Allergy Unknown Verified 07/23/22 07:56 dog dander Allergy Unknown Verified 07/23/22 07:56 latex Allergy ALGY-Rash Verified 07/23/22 07:56 mold Allergy Unknown Verified 07/23/22 07:56 prednisone AdvReac Intermediate Shaky & Verified 07/23/22 07:56 abd pain PFSH PFSH: Medical History Depressed mood Mood disorder Psychiatric care Surgical History Status post placement of VNS (vagus nerve stimulation) device Family History Other Diabetes Social History Smoking and tobacco status: former smoker Second hand smoke exposure: Yes (family smokes, exposure as child) History of recent travel: No Female Reproductive History: Date of last menstrual period: 07/22/22 Dietary Habits: Caffeine: Yes Vital Signs Vitals Signs: Last Vital Signs Temp 97.6 F 07/23/22 07:59 Pulse 90 07/23/22 07:59 Resp 16 07/23/22 07:59 BP 121/78 07/23/22 07:59 Pulse Ox 98 07/23/22 07:59 O2 Del Method 07/23/22 08:00 Weight: Weight last 48 hrs Weight 205 lb Physical Exam Const: COMMON NORMALS: no acute distress, average body habitus, patient o riented x3 and no limitations HENMT: COMMON NORMALS: normocephalic, atraumatic, hearing grossly normal bilaterally and external ears normal Eye: COMMON NORMALS: Equal, round and reactive pupils present and EOMs intact bilaterally Neck/C-Spine: COMMON NORMALS: full ROM and no lymphadenopathy OTHER: Palpable VNS lead in the left neck Chest: COMMONS NORMALS: normal inspection of the chest OTHER: [employer] generator palpable in the left subclavicular region Resp: COMMON NORMALS: normal respiratory effort and clear to auscultation bilaterally Cardio: COMMON NORMALS: regular rate, regular rhythm, S1 normal heart sound present and No murmurs present (Cardio) GI: COMMON NORMALS: Normal to inspection, nondistended, normoactive bowel sounds present Extremity: COMMON NORMALS: no clubbing, cyanosis or edema Neuro: COMMON NORMALS: patient oriented x3, no focal motor deficits, no sensory deficits noted and gait normal Data 07/23/22 08:30 07/23/22 08:30 A&P Assessment and plan (1) Status post VNS (vagus nerve stimulator) placement: Current vagal nerve stimulator generator is end of service. We recommended replacement. Details and risk of procedure carefully discussed. Risk include potential for infection, fracture of leads, bleeding, pain at the procedure site, inability to successfully replace the generator, need for more procedures. All questions have been answered and proper consents reviewed and signed. Coding Level of Care Code Acute Code for Chg Fwd Diagnoses Status post VNS (vagus nerve stimulator) placement Z96.89
[2022-07-23] MEDS: ceFAZolin 1,000 mg SDV 1000 MG IRRIGATION (10:32)
[2022-07-23] MEDS: lidocaine 2% INJ 20 mL INJECTION (10:33)
--- NOTE | 2022-07-23 10:58 | XR_ITS ---
WS: [id number] Exam: XR chest 1V portable [id number] Date/Time of Exam: 07/23/2022 11:10 AM Reason For Exam: Generator exchange Comparison 09/13/2020. The lungs are clear and fully expanded. Normal cardiomediastinal silhouette. No pleural effusions. Th ere is levoscoliosis of the T-spine. A neurostimulator overlies the left chest with the leads extendi ng cephalad. XR/XR chest 1V portable [id number] IMPRESSION: 1. No acute cardiopulmonary finding.
--- NOTE | 2022-07-23 11:01 | P.DS_ITS ---
Discharge Providers Date of Admission: July 23, 2022 Date of Discharge: July 23, 2022 Attending Provider at Admission: Dr. Pickett Attending Provider at Discharge: Alcides Pickett MD Primary Care Provider: Ruma Greenfield Diagnoses at Discharge Discharge Diagnosis (1) Status post VNS (vagus nerve stimulator) placement: Details from hospital stay: Ms. Lehman is a 26-year-old female with seizure disorder currently being cared for by Dr. Campos from our neurology service. Her current VNS generator, placed in 2018 is at end of service. She was admitted for planned generator exchange. Status: Acute Reason for Visit Reason for Visit: G40.909 Brief History: Vagal nerve stimulator at end of service. Hospital Course Hospital Course Ms. Lehman underwent VNS generator exchange today. Postop week, she has done well. Previously programmed parameters are maintained after confirmation with Dr. Campos. Auto stimulation is currently turned off. She will be discharged home today in stable condition for scheduled follow-up in our clinic in 1 week for incision inspection. Physical Exam HENMT: COMMON NORMALS: atraumatic and external ears normal HEAD & SCALP: atraumatic EXTERNAL EAR: Yes external ears normal Neck/C-Spine: COMMON NORMALS: full ROM and no lymphadenopathy Chest: OTHER: Surgical dressing is dry without evidence for fluid collection Resp: COMMON NORMALS: normal respiratory effort, No retractions and clear to auscultation bilaterally AUSCULTATION: clear to auscultation bilaterally Cardio: COMMON NORMALS: regular rate, regular rhythm, S1 normal heart sound present, No murmurs present (Cardio) and No rub (Cardio) RATE: regular rate RHYTHM: regular rhythm HEART SOUNDS: S1 normal heart sound present Extremity: COMMON NORMALS: no clubbing, cyanosis or edema Neuro: COMMON NORMALS: no focal motor deficits and no sensory deficits noted Discharge Data Studies Completed and Pending Pending at discharge Category Date Time Status Urinalysis Routine Lab 07/23/22 07:47 Uncollected Laboratory Results WBC 6.7 10^3/uL (4.0-10.0) 07/23/22 08:30 RBC 4.54 10^6/uL (4.1-5.3) 07/23/22 08:30 Hgb 12.8 g/dL (11.5-15.3) 07/23/22 08:30 Hct 41.0 % (37.0-47.0) 07/23/22 08:30 MCV 90.3 fl (81-99) 07/23/22 08:30 MCH 28.2 pg (28.0-34.0) 07/23/22 08:30 MCHC 31.2 g/dL (30.0-36.0) 07/23/22 08:30 RDW 13.4 % (12.1-15.1) 07/23/22 08:30 Plt Count 287 10^3/cmm (130-400) 07/23/22 08:30 MPV 10.7 fL (7.4-10.4) H 07/23/22 08:30 Neut % (Auto) 54.9 % 07/23/22 08:30 Lymph % (Auto) 36.0 % 07/23/22 08:30 [place] % (Auto) 6.0 % 07/23/22 08:30 Eos % (Auto) 2.1 % 07/23/22 08:30 Baso % (Auto) 0.7 % 07/23/22 08:30 Neut # (Auto) 3.66 10^3/uL (1.8-7.7) 07/23/22 08:30 Lymph # (Auto) 2.4 10^3/uL (0.8-4.8) 07/23/22 08:30 [place] # (Auto) 0.4 10^3/uL (0.2-0.9) 07/23/22 08:30 Eos # (Auto) 0.1 10^3/uL (0.0-0.8) 07/23/22 08:30 Baso # (Auto) 0.1 10^3/uL (0.0-0.1) 07/23/22 08:30 Nucleated RBC % (auto) 0 % 07/23/22 08:30 Nucleated RBCs # 0.0 /100WBC 07/23/22 08:30 Sodium 139 mmol/L (136-145) 07/23/22 08:30 Potassium 3.9 mmol/L (3.5-5.1) 07/23/22 08:30 Chloride 104 mmol/L (98-107) 07/23/22 08:30 Carbon Dioxide 23 mmol/L (22-29) 07/23/22 08:30 Anion Gap 15.9 (5-19) 07/23/22 08:30 BUN 20 mg/dL (6-20) 07/23/22 08:30 Creatinine 0.8 mg/dL (0.5-0.9) 07/23/22 08:30 GFR Calculation 88.1 mL/min (90-130) L 07/23/22 08:30 Glucose 104 mg/dL (65-115) 07/23/22 08:30 Calculated Osmolality 291 mOsm/kg (285-295) 07/23/22 08:30 Calcium 9.0 mg/dL (8.5-10.5) 07/23/22 08:30 HCG, Qual Negative (Negative) 07/23/22 08:30 Procedures Performed Vagal nerve stimulator generator exchange Vitals Last Vital Signs Temp 97.6 F 07/23/22 07:59 Pulse 90 07/23/22 07:59 Resp 16 07/23/22 07:59 BP 121/78 07/23/22 07:59 Pulse Ox 98 07/23/22 07:59 O2 Del Method 07/23/22 08:00 Discharge Plan Discharge Patient Disposition: Home Condition: Stable Prescriptions: New hydrocodone-acetaminophen 5-325 mg tablet 1 tab PO Q8H PRN (Reason: pain) Qty: 10 0RF sulfamethoxazole-trimethoprim [Bactrim DS] 800-160 mg tablet 1 tab PO BID Qty: 6 0RF Continued lorazepam 2 mg/mL concentrate 2 mg SUBLINGUAL BID PRN (Reason: seizure activity) 15 Days Qty: 30 1RF Rx Instructions: Take 1 ml at onset of seizure. Do not exceed 2 doses/day. sertraline 100 mg tablet 200 mg PO DAILY Qty: 60 1RF Rx Instructions: Take 2 tablets by mouth every morning levetiracetam [Keppra XR] 750 mg tablet extended release 24 hr 1,500 mg PO DAILY Qty: 60 5RF zonisamide 100 mg capsule 400 mg PO BEDTIME 30 Days Qty: 120 3RF montelukast 10 mg Tablet 10 mg PO DAILY levocetirizine [Xyzal] 5 mg Tablet 5 mg PO DAILY albuterol sulfate [ProAir HFA] 90 mcg/actuation HFA aerosol inhaler 1 inh inhalation QID PRN (Reason: Shortness Of Breath) Discharge Orders: Discharge Order (Routine); Ordered 07/23/22 Ordered By: Alcides Pickett Referrals: Alcides Pickett MD [Physician] - 1 week (Incision inspection) Discharge Activity: Limit activity as instructed Activity Restrictions/Additional Instructions: May remove bandage in 2 days May begin daily showers in 3 days Dry incision carefully after showers. May re-cover if desired to prevent irritation from clothing. No swimming or tub baths x 2 weeks No ointments on incision Report drainage, redness, heat, increased pain, or swelling to clinic Discharge Attestations Time Spent in Discharge Care*: less than 30 min Specific Discharge Activities: educating patient, educating and/or supporting family/caregiver, documenting/other paperwork and evaluating patient/reviewing data Status at Discharge: Cognitive status at discharge: cognitively intact , Be havioral status at discharge: cooperative , Functional status at discharge: independent ambulation , Overall status at discharge: patient is back to baseline Quality Metrics Clinical Quality Measures [ No reported AMI, CVA or VTE this stay] Coding Level of Care Code Acute Code for Chg Fwd Diagnoses Status post VNS (vagus nerve stimulator) placement Z96.89
--- NOTE | 2022-07-23 11:05 | P.OP_ITS ---
Operative Report Date of procedure: July 23, 2022 Pre-op diagnosis: Preop Diagnosis Vagal nerve stimulator generator end of service Post-op diagnosis: same Implants: Sentiva vagal nerve stimulator generator Specimens removed/disposition: Old generator Pathology: none sent Surgeon: Alcides Pickett Anesthesia: MAC and Local Complications: None Condition: stable Brief History: Ms. Lehman is a 26-year-old female with a long history for seizure disorder status post vagal nerve stimulator generator implantation in 2018. Current generator is at end of service. Generator replacement has been recommended. Details and risk of the surgery were carefully and frankly discussed. Proper consents have been reviewed and signed. Procedure: Ms. Lehman was taken to the operating room theater carefully position on the OR table. She underwent IV conscious sedation with anesthesia monitoring. Her entire chest was sterilely prepped and draped. Appropriate timeout was completed and confirmed by all surgical members present. 1% lidocaine was infiltrated beneath the left subclavicular scar from the previous implant site. #10 scalpel blade was utilized to incise the skin. Dissection was continued deep utilizing Metzenbaum scissors and cautery into the pseudocapsule of the generator was reached. This was opened up with a #15 scalpel blade exposed the generator which was removed from the subcutaneous pocket carefully. Setscrew was released and the lead was disengaged. New generator was brought to the field. Vagal nerve lead was placed into the new generator and the setscrew engaged confirming good contact. Generator was placed back into the subcutaneous pocket where interrogation was confirmed with appropriate programming parameters set. Following this, wound was irrigated antibiotic solution. Wound was then closed with 2 layers of 3-0 Vicryl suture. Skin was closed in a subcuticular manner with 4-0 Monocryl suture. Dermal glue was applied followed by a sterile pressure dressing. Ms. Lehman tolerated procedure well and was subsequently transferred to Outpatient Surgery in stable condition. We did counselor supervisor with family completion of the procedure. Sentiva VNS Generator: Model # 1000 Serial # [id number] Output 2.25 mA normal 2.5 mA mag Frequency: 20 Hz Pulse width: 250 ?s On time 21 seconds Off time 0.5 minutes Duty cycle 49% Lead impedance 2190 ohms Auto stimulation threshold 70% Heartbeat detection 3 beats
--- NOTE | 2022-07-23 11:11 | PC.NURSE ---
Ice to left upper chest. Xray completed @ bedside
--- NOTE | 2022-07-23 15:22 | ANE.PACU2 ---
Inpatient post-anesthesia follow up: Airway intact: Yes Vital signs: Temperature 98.1 F Pulse Rate 74 Respiratory Rate 16 Blood Pressure 123/77 Pulse Oximetry 95 Oxygen Delivery Me thod Room Air Oxygen Flow Rate Fraction of Inspir ed Oxygen Hydration adequate: Yes Nausea and vomiting: No Pain level: 1 Mental status: Baseline
--- NOTE | 2022-07-24 12:19 | PC.NURSE ---
patient called back today stating she was prescribed an antibiotic post yesterday and got it filled at the pharmacy but had to emergently leave town yesterday and forgot to take her RX with her. she is asking if another can be sent in to the pharmacy near her in [facility] [place] [facility]. dr nelson was contacted and told the situation and he said he would input another rx to the new pharmacy. i contacted patient and told her to hand picker new rx at new pharmacy today. she agreed.
== END 2022-07-23 12:10 | disposition home or self-care (01) ==
PROVIDERS: Anesthesiology; PCP Nurse Practitioner Family; Visit Provider Thoracic Surgery (Cardiothoracic Vascular Surgery)
PROC: (CPT 61885; principal; 2022-07-23 09:00)
DX: T85.193A Other mechanical complication of implanted electronic neurostimulator, generator, initial encounter (principal); Y83.8 Other surgical procedures as the cause of abnormal reaction of the patient, or of later complication, without mention of misadventure at the time of the procedure; G40.909 Epilepsy, unspecified, not intractable, without status epilepticus; J45.909 Unspecified asthma, uncomplicated; E66.01 Morbid (severe) obesity due to excess calories; Z68.37 Body mass index [BMI] 37.0-37.9, adult; Z87.891 Personal history of nicotine dependence
CPT/HCPCS: 61885; 36415; 71045; 80048; 84703; 85025; C1767; J0690; J2250; J2704; J3010; J7030

== ENCOUNTER → 2022-08-06 07:59 | Outpatient (BNVA) | payer MEDICAID, SELFPAY | PROVIDERS: PCP Nurse Practitioner Family; Visit Provider Specialist | DX: G40.419 Other generalized epilepsy and epileptic syndromes, intractable, without status epilepticus (principal); M54.6 Pain in thoracic spine; M41.80 Other forms of scoliosis, site unspecified; Z96.82 Presence of neurostimulator; Z45.42 Encounter for adjustment and management of neurostimulator | CPT/HCPCS: 95971; 99214 ==

== ENCOUNTER → 2022-09-19 10:22 | Outpatient (BNVA) | payer MEDICAID, SELFPAY | PROVIDERS: PCP Nurse Practitioner Family; Visit Provider Nurse Practitioner Women's Health | DX: Z30.9 Encounter for contraceptive management, unspecified (principal) | CPT/HCPCS: 88175 ==

== ENCOUNTER 2022-09-30 17:00 | Emergency (ER) | payer MEDICAID, SELFPAY ==
--- NOTE | 2022-09-30 17:08 | ED_ITS ---
Documented by User: Terry Suazo DO 09/30/22 17:32 HPI - Seizure General: Chief Complaint: Seizure Stated Complaint: SEIZURE Time Seen by Provider: 09/30/22 17:07 Source: patient Mode of arrival: ambulatory History of Present Illness: HPI Narrative: 25-year-old female with a history of seizure disorder presents complaining of having had a seizure today. Her last seizure before today was in June. Lasted 15 to 20 seconds described as a grand mal seizure. She is on Keppra and zonisamide. She states she frequently forgets to take her medications and not sure if she has missed any doses recently but admits she often does not miss doses. No recent change in medications. MD complaint: seizure Description of Episode: tonic-clonic movement Duration of episode: 20 -: second(s) Seizure History: Yes Place: School Possible Precipitating Event: medication Associated symptoms: Deny chest pain, chills, confusion, cough, diaphoresis, fever(s), anorexia, malaise, rash, short of breath, syncope or weakness Treatments prior to arrival: none Review of Systems Const: Denies: fever(s), chills, fatigue, malaise or diaphoresis ENMT: Denies: throat pain, ear or mastoid pain, nasal discharge or nasal congestion Card: Denies: chest pain or syncope Resp: Denies: dyspnea, productive cough or non-productive cough GI: Denies: abdominal pain, nausea, vomiting, hematemesis, coffee ground emesis, diarrhea, constipation, bloating, hematochezia or melena : Denies: flank pain, difficulty voiding, dysuria, urinary frequency or urinary urgency Skin/Breast: Denies: rash or pruritus Neuro: Denies: confusion PFSH ED PFSH: Medical History Depressed mood Mood disorder Psychiatric care Surgical History Status post placement of VNS (vagus nerve stimulation) device Family History Other Diabetes Denies family history of Cervical cancer Ovarian cancer Breast cancer Hypertension Uterine cancer Stroke Social History Smoking and tobacco status: former smoker Second hand smoke exposure: Yes (family smokes, exposure as child) Substance/Drug Use: former Date of last use: marijuana Physical Exam Const: GENERAL APPEARANCE: cooperative and comfortable ORIENTATION/CONSCIOUSNESS: Yes awake, Yes oriented to person, Yes oriented to place and Yes oriented to time HENMT: COMMON NORMALS: normocephalic, atraumatic and hearing grossly normal bilaterally HEAD & SCALP: normocephalic and atraumatic Resp: COMMON NORMALS: normal respiratory effort, No retractions, No use of accessory muscles and clear to auscultation bilaterally AUSCULTATION: clear to auscultation bilaterally Cardio: COMMON NORMALS: regular rate, regular rhythm and No murmurs present (Cardio) RATE: regular rate RHYTHM: regular rhythm GI: COMMON NORMALS: Soft to palpation and No hepatosplenomegaly present AUS CULTATION: Yes normoactive bowel sounds PALPATION: Yes Soft to palpation, No Tenderness to palpation present (GI), No Guarding due to palpation present (GI) and Yes No hepatosplenomegaly present Extremity: COMMON NORMALS: normal to inspection, capillary refill normal, no clubbing, cyanosis or edema, no calf tenderness and no pedal edema Neuro: SENSORIUM/ORIENTATION: Yes oriented to person, Yes oriented to place and Yes oriented to time Skin: COMMON NORMALS: no rashes or lesions noted GENERAL SKIN EXAM: no rashes or lesions noted Course Vital Signs: Vital signs: Vital Signs Temperature 98.4 F 09/30/22 17:09 Pulse Rate 95 09/30/22 17:09 Respiratory Rate 14 09/30/22 17:09 Pulse Oximetry 95 09/30/22 17:09 Oxygen Delivery Me thod Room Air 09/30/22 17:09 MDM - Seizure MDM Narrative Medical decision making narrative: Care signed out to Dr. Doan at change of shift. See final notes for diagnosis and disposition. Lab Data 09/30/22 17:30 09/30/22 17:30 Labs: Laboratory Results WBC 7.0 10^3/uL (4.0-10.0) 09/30/22 17:30 RBC 4.48 10^6/uL (4.1-5.3) 09/30/22 17:30 Hgb 12.4 g/dL (11.5-15.3) 09/30/22 17:30 Hct 39.0 % (37.0-47.0) 09/30/22 17: MCV 87.1 fl (81-99) 09/30/22 17: MCH 27.7 pg (28.0-34.0) L 09/30/22 17: MCHC 31.8 g/dL (30.0-36.0) 09/30/22 17: RDW 13.6 % (12.1-15.1) 09/30/22 17: Plt Count 234 10^3/cmm (130-400) 09/30/22 17: MPV 10.6 fL (7.4-10.4) H 09/30/22 17: Neut % (Auto) 64.4 % 09/30/22 17: Lymph % (Auto) 25.2 % 09/30/22 17: Teller % (Auto) 8.4 % 09/30/22 17: Eos % (Auto) 1.3 % 09/30/22 17: Baso % (Auto) 0.4 % 09/30/22 17:30 Neut # (Auto) 4.51 10^3/uL (1.8-7.7) 09/30/22 17: Lymph # (Auto) 1.8 10^3/uL (0.8-4.8) 09/30/22 17:30 [place] # (Auto) 0.6 10^3/uL (0.2-0.9) 09/30/22 17: Eos # (Auto) 0.1 10^3/uL (0.0-0.8) 09/30/22 17: Baso # (Auto) 0.0 10^3/uL (0.0-0.1) 09/30/22 17: Nucleated RBC % (auto) 0 % 09/30/22: Nucleated RBCs # 0.0 /100WBC 09/30/22 17: Sodium 138 mmol/L (136-145) 09/30/22 17: Potassium 3.6 mmol/L (3.5-5.1) 09/30/22 17: Chloride 106 mmol/L (98-107) 09/30/22 17: Carbon Dioxide 21 mmol/L (22-29) L 09/30/22 17:30 Anion Gap 14.6 (5-19) 09/30/22 17:30 BUN 13 mg/dL (6-20) 09/30/22 17:30 Creatinine 0.8 mg/dL (0.5-0.9) 09/30/22 17:30 GFR Calculation 88.1 mL/min (90-130) L 09/30/22 17:30 Glucose 89 mg/dL (65-115) 09/30/22 17:30 Calculated Osmolality 286 mOsm/kg (285-295) 09/30/22 17:30 Calcium 9.1 mg/dL (8.5-10.5) 09/30/22 17:30 Magnesium 1.9 mg/dL (1.7-2.3) 09/30/22 17:30 Total Bilirubin 0.2 mg/dL (0.15-1.2) 09/30/22 17:30 AST 19 U/L (0-32) 09/30/22 17:30 ALT 15 U/L (0-33) 09/30/22 17:30 Alkaline Phosphatase 93 U/L (35-105) 09/30/22 17:30 Creatine Kinase 99 U/L (26-192) 09/30/22 17:30 Total Protein 7.6 g/dL (6.6-8.7) 09/30/22 17:30 Albumin 4.1 g/dL (3.5-5.2) 09/30/22 17:30 Globulin 3.5 g/dL (1.3-4.6) 09/30/22 17:30 Discharge Plan Discharge Patient Disposition: Home Clinical Impression: Generalized seizure Condition: Stable Prescriptions: No Action lorazepam 2 mg/mL concentrate 2 mg SUBLINGUAL BID PRN (Reason: seizure activity) 15 Days Qty: 30 1RF Rx Instructions: Take 1 ml at onset of seizure. Do not exceed 2 doses/day. zonisamide 100 mg capsule 400 mg PO BEDTIME 30 Days Qty: 120 3RF sertraline 100 mg tablet 200 mg PO DAILY Qty: 60 1RF Rx Instructions: Take 2 tablets by mouth every morning levetiracetam 750 mg tablet extended release 24 hr See Rx Instructions .ROUTE .COMPLEX Qty: 360 0RF Dose Instruction: Take 2 tablets by mouth once daily Rx Instructions: Take 2 tablets by mouth once daily montelukast 10 mg Tablet 10 mg PO DAILY levocetirizine [Xyzal] 5 mg Tablet 5 mg PO DAILY albuterol sulfate [ProAir HFA] 90 mcg/actuation HFA aerosol inhaler 1 inh inhalation QID PRN (Reason: Shortness Of Breath) Discharge Orders: Discharge ED (Routine); Ordered 09/30/22 Ordered By: Daya Doan Referrals: Ruma Greenfield FNP [Primary Care Provider] - 1-3 days Discharge Diet: Advance as tolerated Discharge Activity: Resume usual activity Patient Instructions: Generalized Tonic Clonic Seizures (ED) Stand Alone Forms: Work/School Release Coding Level of Care Code ED Quality Control Coordinator for Chg Fwd Documented by User: Daya Doan MD 09/30/22 18:19 HPI - Seizure General: Chief Complaint: Seizure Stated Complaint: SEIZURE Time Seen by Provider: 09/30/22 17:07 PFSH ED PFSH: Medical History Depressed mood Mood disorder Psychiatric care Surgical History Status post placement of VNS (vagus nerve stimulation) device Family History Other Diabetes Denies family history of Cervical cancer Ovarian cancer Breast cancer Hypertension Uterine cancer Stroke Social History Smoking and tobacco status: former smoker Second hand smoke exposure: Yes (family smokes, exposure as child) Substance/Drug Use: former Date of last use: marijuana Course Vital Signs: Vital signs: Vital Signs Temperature 98.4 F 09/30/22 17:09 Pulse Rate 95 09/30/22 17:09 Respiratory Rate 14 09/30/22 17:09 Pulse Oximetry 95 09/30/22 17:09 Oxygen Delivery Me thod Room Air 09/30/22 17:09 MDM - Seizure MDM Narrative Medical decision making narrative: Care signed out to Dr. Doan at change of shift. See final notes for diagnosis and disposition. Patient presents here after a seizure she had a long history of seizures her labs here are baseline she does not require head CT she is stable for discharge she is to follow-up with PCP and return if worsening. Lab Data 09/30/22 17:30 09/30/22 17:30 Labs: Laboratory Results WBC 7.0 10^3/uL (4.0-10.0) 09/30/22 17:30 RBC 4.48 10^6/uL (4.1-5.3) 09/30/22 17: Hgb 12.4 g/dL (11.5-15.3) 09/30/22 17:30 Hct 39.0 % (37.0-47.0) 09/30/22 17:30 MCV 87.1 fl (81-99) 09/30/22 17:30 MCH 27.7 pg (28.0-34.0) L 09/30/22 17:30 MCHC 31.8 g/dL (30.0-36.0) 09/30/22 17:30 RDW 13.6 % (12.1-15.1) 09/30/22 17: Plt Count 234 10^3/cmm (130-400) 09/30/22 17:30 MPV 10.6 fL (7.4-10.4) H 09/30/22 17:30 Neut % (Auto) 64.4 % 09/30/22 17:30 Lymph % (Auto) 25.2 % 09/30/22 17:30 Teller % (Auto) 8.4 % 09/30/22 17:30 Eos % (Auto) 1.3 % 09/30/22 17:30 Baso % (Auto) 0.4 % 09/30/22 17:30 Neut # (Auto) 4.51 10^3/uL (1.8-7.7) 09/30/22 17:30 Lymph # (Auto) 1.8 10^3/uL (0.8-4.8) 09/30/22 17:30 Teller # (Auto) 0.6 10^3/uL (0.2-0.9) 09/30/22 17:30 Eos # (Auto) 0.1 10^3/uL (0.0-0.8) 09/30/22 17:30 Baso # (Auto) 0.0 10^3/uL (0.0-0.1) 09/30/22 17:30 Nucleated RBC % (auto) 0 % 09/30/22 17:30 Nucleated RBCs # 0.0 /100WBC 09/30/22 17:30 Sodium 138 mmol/L (136-145) 09/30/22 17:30 Potassium 3.6 mmol/L (3.5-5.1) 09/30/22 17:30 Chloride 106 mmol/L (98-107) 09/30/22 17:30 Carbon Dioxide 21 mmol/L (22-29) L 09/30/22 17:30 Anion Gap 14.6 (5-19) 09/30/22 17:30 BUN 13 mg/dL (6-20) 09/30/22 17:30 Creatinine 0.8 mg/dL (0.5-0.9) 09/30/22 17:30 GFR Calculation 88.1 mL/min (90-130) L 09/30/22 17:30 Glucose 89 mg/dL (65-115) 09/30/22 17:30 Calculated Osmolality 286 mOsm/kg (285-295) 09/30/22 17:30 Calcium 9.1 mg/dL (8.5-10.5) 09/30/22 17:30 Magnesium 1.9 mg/dL (1.7-2.3) 09/30/22 17:30 Total Bilirubin 0.2 mg/dL (0.15-1.2) 09/30/22 17:30 AST 19 U/L (0-32) 09/30/22 17:30 ALT 15 U/L (0-33) 09/30/22 17:30 Alkaline Phosphatase 93 U/L (35-105) 09/30/22 17:30 Creatine Kinase 99 U/L (26-192) 09/30/22 17:30 Total Protein 7.6 g/dL (6.6-8.7) 09/30/22 17:30 Albumin 4.1 g/dL (3.5-5.2) 09/30/22 17:30 Globulin 3.5 g/dL (1.3-4.6) 09/30/22 17:30 Discharge Plan Discharge Patient Disposition: Home Clinical Impression: Generalized seizure Condition: Stable Prescriptions: No Action lorazepam 2 mg/mL concentrate 2 mg SUBLINGUAL BID PRN (Reason: seizure activity) 15 Days Qty: 30 1RF Rx Instructions: Take 1 ml at onset of seizure. Do not exceed 2 doses/day. zonisamide 100 mg capsule 400 mg PO BEDTIME 30 Days Qty: 120 3RF sertraline 100 mg tablet 200 mg PO DAILY Qty: 60 1RF Rx Instructions: Take 2 tablets by mouth every morning levetiracetam 750 mg tablet extended release 24 hr See Rx Instructions .ROUTE .COMPLEX Qty: 360 0RF Dose Instruction: Take 2 tablets by mouth once daily Rx Instructions: Take 2 tablets by mouth once daily montelukast 10 mg Tablet 10 mg PO DAILY levocetirizine [Xyzal] 5 mg Tablet 5 mg PO DAILY albuterol sulfate [ProAir HFA] 90 mcg/actuation HFA aerosol inhaler 1 inh inhalation QID PRN (Reason: Shortness Of Breath) Discharge Orders: Discharge ED (Routine); Ordered 09/30/22 Ordered By: Daya Doan Referrals: Ruma Greenfield FNP [Primary Care Provider] - 1-3 days Discharge Diet: Advance as tolerated Discharge Activity: Resume usual activity Patient Instructions: Generalized Tonic Clonic Seizures (ED) Stand Alone Forms: Work/School Release Coding Level of Care Code ED Quality Control Coordinator for James Wagner
[2022-09-30 17:09] VITALS: PULSE 95; RESP 14; TEMP 36.9; O2SAT 95; BMI 39.1
[2022-09-30 17:41] LABS: Basophils % 0.4 %; Eosinophils # 0.1 10^3/uL (0.0-0.8); Eosinophils % 1.3 %; Hemoglobin 12.4 g/dL (11.5-15.3); Lymphocytes # 1.8 10^3/uL (0.8-4.8); Lymphocytes % 25.2 %; Mean Corpuscular HGB Conc 31.8 g/dL (30.0-36.0); Mean Corpuscular Hemoglobin 27.7 pg (28.0-34.0); Mean Corpuscular Volume 87.1 fl (81-99); Mean Platelet Volume 10.6 fL (7.4-10.4); Monocytes # 0.6 10^3/uL (0.2-0.9); Monocytes % 8.4 %; Neutrophils # 4.51 10^3/uL (1.8-7.7); Neutrophils % 64.4 %; Nucleated Red Blood Cells % 0 %; Platelet Count 234 10^3/cmm (130-400); Red Blood Count 4.48 10^6/uL (4.1-5.3); Red Cell Distribution Width 13.6 % (12.1-15.1)
[2022-09-30 18:10] LABS: Alanine Aminotransferase 15 U/L (0-33); Albumin Level 4.1 g/dL (3.5-5.2); Alkaline Phosphatase 93 U/L (35-105); Anion Gap 14.6 (5-19); Aspartate Amino Transferase 19 U/L (0-32); Blood Urea Nitrogen 13 mg/dL (6-20); Calcium 9.1 mg/dL (8.5-10.5); Carbon Dioxide 21 mmol/L (22-29); Chloride 106 mmol/L (98-107); Creatine Phosphokinase 99 U/L (26-192); Globulin 3.5 g/dL (1.3-4.6); Glomerular Filtration Rate 88.1 mL/min (90-130); Glucose 89 mg/dL (65-115); Magnesium 1.9 mg/dL (1.7-2.3); Osmolality Calculated 286 mOsm/kg (285-295); Potassium 3.6 mmol/L (3.5-5.1); Sodium 138 mmol/L (136-145); Total Bilirubin 0.2 mg/dL (0.15-1.2); Total Protein 7.6 g/dL (6.6-8.7)
[2022-09-30 18:28] VITALS: BP 138/79; PULSE 86; RESP 16; O2SAT 99
[2022-10-02 08:25] LABS: Levetiracetam Immunoassy <2.0 mcg/mL (6.0-46.0)
== END 2022-09-30 18:28 | disposition home or self-care (01) ==
PROVIDERS: Family Medicine; Emergency Provider Emergency Medicine; PCP Nurse Practitioner Family
DX: G40.409 Other generalized epilepsy and epileptic syndromes, not intractable, without status epilepticus (principal); Z87.891 Personal history of nicotine dependence
CPT/HCPCS: 36415; 80053; 80177; 82550; 83735; 85025; 96365; 99284; J1953

== ENCOUNTER → 2022-10-08 13:52 | Outpatient (BNVA) | payer MEDICAID, SELFPAY | PROVIDERS: PCP Nurse Practitioner Family; Visit Provider Specialist | DX: G40.A09 Absence epileptic syndrome, not intractable, without status epilepticus (principal); M41.80 Other forms of scoliosis, site unspecified; F41.1 Generalized anxiety disorder; Z45.42 Encounter for adjustment and management of neurostimulator; Z96.82 Presence of neurostimulator | CPT/HCPCS: 95971; 99214 ==

== ENCOUNTER → 2022-12-18 10:43 | Outpatient (BNVA) | payer MEDICAID, SELFPAY | PROVIDERS: PCP Nurse Practitioner Family; Visit Provider Obstetrics & Gynecology | DX: Z30.9 Encounter for contraceptive management, unspecified (principal) | CPT/HCPCS: 81025 ==

== ENCOUNTER → 2023-01-08 14:17 | Outpatient (BNVA) | payer MEDICAID, SELFPAY | PROVIDERS: PCP Nurse Practitioner Family; Referring Provider Specialist; Visit Provider Specialist | DX: G40.309 Generalized idiopathic epilepsy and epileptic syndromes, not intractable, without status epilepticus (principal); G43.711 Chronic migraine without aura, intractable, with status migrainosus; F41.1 Generalized anxiety disorder; F60.3 Borderline personality disorder; Z96.82 Presence of neurostimulator | CPT/HCPCS: 95970; 99214 ==

== ENCOUNTER 2023-03-17 15:03 | Emergency (ER) | payer MEDICAID, SELFPAY ==
[2023-03-17 15:07] VITALS: BP 125/76; PULSE 99; RESP 18; TEMP 36.8; O2SAT 97
[2023-03-17 15:20] VITALS: O2SAT 97
--- NOTE | 2023-03-17 15:22 | ED_ITS ---
HPI - Seizure General: Chief Complaint: Seizure Stated Complaint: post seizure Time Seen by Provider: 03/17/23 15:16 History of Present Illness: HPI Narrative: 27-year-old female with history of seizure disorder but noncompliant with Keppra medication. Patient further reveals that she last took the medication about 7 weeks ago and was taking natural supplement. Patient reveals having seizure prior to coming to emergency room via EMS. Her grandmother at did call 911. Upon present emergency room patient is awake alert and able to answer all my questions. Has any tongue laceration no neck pain no abdominal pain or back pain. Patient revealed some mild headache and described as throbbing sensation with severity of 4 out of 10. No worsening of her life. Seizure History: Yes Associated symptoms: Deny chills, confusion or fever(s) Review of Systems General: Reports: 10 or more systems reviewed and unremarkable except in HPI and below Const: Denies: fever(s), chills, body aches or change in appetite Resp: Denies: dyspnea, productive cough or non-productive cough GI: Denies: nausea, vomiting, hematemesis, coffee ground emesis or dysphagia Neuro: Reports: headache(s) and seizure-like activity; Denies: numbness in extremities, weakness in extremities, sensory changes, lack of coordination, difficulty walking, frequent falls, dizziness, vertigo, confusion or restless legs PFS ED PFSH: Medical History Anxiety Depressed mood Generalized epilepsy, intractable Hereditary and idiopathic neuropathy Mood disorder Psychiatric care Surgical History History of eye surgery Status post placement of VNS (vagus nerve stimulation) device Family History Other Diabetes Denies family history of Cervical cancer Ovarian cancer Breast cancer Hypertension Uterine cancer Stroke Social History Smoking and tobacco/nicotine status: former use of tobacco/nicotine Second hand smoke exposure: Yes (family smokes, exposure as child) Substance/Drug Use: former Date of last use: marijuana Physical Exam Const: COMMON NORMALS: no acute distress, average body habitus, patient oriented x3, no limitations, healthy appearing, alert and well nourished HENMT: COMMON NORMALS: normocephalic, atraumatic, hearing grossly normal bilaterally, external ears normal, EAC's normal, TM's normal bilaterally, Normal external nose present, Normal nasal mucous membranes and turbinates present, moist oral mucous membranes, oropharynx normal, dentition normal and gingiva n ormal HEAD & SCALP: normocephalic and atraumatic NOSE: Normal external nose present and Normal nasal mucous membranes and turbinates present EXTERNAL EAR: Yes external ears normal EXTERNAL AUDITORY CANAL: EAC's normal TYMPANIC MEMBRANE: TM's normal bilaterally Eye: COMMON NORMALS: Equal, round and reactive pupils present, EOMs intact bilaterally, conjunctivae normal, no scleral icterus, no papilledema, normal visual valdez by confrontation and fundi normal bilaterally CONJUNCTIVA: Yes conjunctivae normal PUPIL: Yes Equal, round and reactive pupils present DIRECT OPHTHALMOSCOPY: Yes no papilledema and Yes fundi normal bilaterally Neck/C-Spine: COMMON NORMALS: full ROM, no lymphadenopathy, supple, no meningeal signs, no JVD, Thyroid normal and No carotid bruits THYROID: Thyroid normal Chest: COMMONS NORMALS: normal inspection of the chest, normal palpation of entire chest wall, normal inspection of the breasts and normal palpation of the breasts Breast/axilla inspection: Yes normal inspection of the breasts BREAST/AXILLA PALPATION: Yes normal palpation of the breasts Resp: COMMON NORMALS: normal respiratory effort, No retractions, No use of accessory muscles, clear to auscultation bilaterally and percussion normal AUSCULTATION: clear to auscultation bilaterally PERCUSSION: percussion normal Cardio: COMMON NORMALS: no JVD Extremity: COMMON NORMALS: normal to inspection, full ROM, capillary refill normal, no joint enlargement, no clubbing, cyanosis or edema, no calf tenderness and no pedal edema Neuro: COMMON NORMALS: patient oriented x3 SENSORIUM/ORIENTATION: Yes alert MENINGEAL SIGNS: Yes no meningeal signs CRANIAL NERVES: Yes CN normal except as noted SPEECH: speech normal GAIT: Yes Normal gait present SENSORY EXAM: Yes extremities MONOFILAMENT EXAM PERFORMED: Yes Skin: COMMON NORMALS: no rashes or lesions noted, no wounds, turgor normal, no jaundice, no petechiae and no mottling GENERAL SKIN EXAM: no rashes or lesions noted and turgor normal Course Vital Signs: Vital signs: Vital Signs Temperature 98.2 F 03/17/23 15:07 Pulse Rate 90 03/17/23 16:04 Respiratory Rate 16 03/17/23 16:04 Blood Pressure 111/66 03/17/23 16:04 Pulse Oximetry 100 03/17/23 16:04 Oxygen Delivery Me thod Room Air 03/17/23 16:04 MDM - Seizure MDM Narrative Medical decision making narrative: Patient made comfortable emergency room and had extensive work-up including CBC, CMP and was given IV Keppra. Patient was reassured and told to continue taking her Keppra as directed. Close follow-up with neurology recommended. Differential Diagnosis Seizure Differential Diagnosis: Likely intractable seizure disorder, febrile convulsion, focal seizure, generalized seizure, new onset seizure, epileptic seizure and status epilepticus Lab Data 03/17/23 15:40 03/17/23 15:40 Labs: Laboratory Results WBC 9.65 10^3/uL (3.29-11.43) 03/17/23 15:40 RBC 4.64 10^6/uL (3.85-5.65) 03/17/23 15:40 Hgb 13.20 g/dL (11.27-16.99) 03/17/23 15:40 Hct 41.1 % (36-47) 03/17/23 15:40 MCV 88.6 fl (85-98) 03/17/23 15:40 MCH 28.4 pg (27-33) 03/17/23 15:40 MCHC 32.1 g/dL (30-55) 03/17/23 15:40 RDW 13.5 % (12.1-15.1) 03/17/23 15:40 Plt Count 259 10^3/cmm (157-399) 03/17/23 15:40 MPV 10.7 fL (7.4-10.4) H 03/17/23 15:40 Neut % (Auto) 74.6 % 03/17/23 15:40 Lymph % (Auto) 18.3 % 03/17/23 15:40 [place] % (Auto) 5.8 % 03/17/23 15:40 Eos % (Auto) 0.6 % 03/17/23 15:40 Baso % (Auto) 0.4 % 03/17/23 15:40 Neut # (Auto) 7.19 10^3/uL (1.8-7.7) 03/17/23 15:40 Lymph # (Auto) 1.8 10^3/uL (0.8-4.8) 03/17/23 15:40 [place] # (Auto) 0.6 10^3/uL (0.2-0.9) 03/17/23 15:40 Eos # (Auto) 0.1 10^3/uL (0.0-0.8) 03/17/23 15:40 Baso # (Auto) 0.0 10^3/uL (0.0-0.1) 03/17/23 15:40 Nucleated RBC % (auto) 0 % 03/17/23 15:40 Nucleated RBCs # 0.0 /100WBC 03/17/23 15:40 Sodium 137 mmol/L (136-145) 03/17/23 15:40 Potassium 4.0 mmol/L (3.5-5.1) 03/17/23 15:40 Chloride 103 mmol/L (98-107) 03/17/23 15:40 Carbon Dioxide 26 mmol/L (22-29) 03/17/23 15:40 Anion Gap 12.0 (5-19) 03/17/23 15:40 BUN 15 mg/dL (6-20) 03/17/23 15:40 Creatinine 0.8 mg/dL (0.5-0.9) 03/17/23 15:40 GFR Calculation 87.4 mL/min (90-130) L 03/17/23 15:40 Glucose 91 mg/dL (65-115) 03/17/23 15:40 Calculated Osmolality 284 mOsm/kg (285-295) L 03/17/23 15:40 Calcium 9.0 mg/dL (8.5-10.5) 03/17/23 15:40 Total Bilirubin 0.2 mg/dL (0.15-1.2) 03/17/23 15:40 AST 15 U/L (0-32) 03/17/23 15:40 ALT 11 U/L (0-33) 03/17/23 15:40 Alkaline Phosphatase 70 U/L (35-105) 03/17/23 15:40 Total Protein 7.4 g/dL (6.6-8.7) 03/17/23 15:40 Albumin 4.0 g/dL (3.5-5.2) 03/17/23 15:40 Globulin 3.4 g/dL (1.3-4.6) 03/17/23 15:40 No radiology studies performed this visit Discharge Plan Discharge Patient Disposition: Home Clinical Impression: Seizure disorder, Non compliance w medication regimen Condition: Stable Prescriptions: No Action levetiracetam 750 mg tablet extended release 24 hr See Rx Instructions .ROUTE .COMPLEX Qty: 360 3RF Dose Instruction: Take 2 tablets by mouth once daily Rx Instructions: Take 2 tablets by mouth once daily zonisamide 100 mg capsule 400 mg PO BEDTIME 90 Days Qty: 360 3RF lorazepam 2 mg/mL concentrate 2 mg SUBLINGUAL BID PRN (Reason: seizure activity) 15 Days Qty: 30 1RF Rx Instructions: Take 1 ml at onset of seizure. Do not exceed 2 doses/day. sertraline 100 mg tablet 100 mg PO DAILY Qty: 30 1RF Rx Instructions: Take 1 tablet daily metronidazole 500 mg tablet 500 mg PO BID Qty: 14 0RF levofloxacin 500 mg tablet 500 mg PO DAILY 7 Days Qty: 7 0RF montelukast 10 mg Tablet 10 mg PO DAILY levocetirizine [Xyzal] 5 mg Tablet 5 mg PO DAILY albuterol sulfate [ProAir HFA] 90 mcg/actuation HFA aerosol inhaler 1 inh inhalation QID PRN (Reason: Shortness Of Breath) Discharge Orders: Discharge ED (Routine); Ordered 03/17/23 Ordered By: Sheryl Fernández Referrals: Ruma Greenfield FNP [Primary Care Provider] - Patient Instructions: Opioid Safety, Pain Management Coding Level of Care Code ED Instrument Tester for James Wagner
[2023-03-17 15:58] LABS: Basophils % 0.4 %; Eosinophils # 0.1 10^3/uL (0.0-0.8); Eosinophils % 0.6 %; Hematocrit 41.1 % (36-47); Lymphocytes # 1.8 10^3/uL (0.8-4.8); Lymphocytes % 18.3 %; Mean Corpuscular HGB Conc 32.1 g/dL (30-55); Mean Corpuscular Hemoglobin 28.4 pg (27-33); Mean Corpuscular Volume 88.6 fl (85-98); Mean Platelet Volume 10.7 fL (7.4-10.4); Monocytes # 0.6 10^3/uL (0.2-0.9); Monocytes % 5.8 %; Neutrophils # 7.19 10^3/uL (1.8-7.7); Neutrophils % 74.6 %; Nucleated Red Blood Cells % 0 %; Platelet Count 259 10^3/cmm (157-399); Red Blood Count 4.64 10^6/uL (3.85-5.65); Red Cell Distribution Width 13.5 % (12.1-15.1); White Blood Count 9.65 10^3/uL (3.29-11.43)
[2023-03-17] MEDS: acetaminophen 500 mg Tablet 1000 MG PO (16:00)
[2023-03-17] MEDS: ondansetron 2 mg/ML SDV 2 mL 4 MG IVP (16:01)
[2023-03-17 16:04] VITALS: BP 111/66; PULSE 90; RESP 16; O2SAT 100
[2023-03-17 16:16] LABS: Alanine Aminotransferase 11 U/L (0-33); Alkaline Phosphatase 70 U/L (35-105); Aspartate Amino Transferase 15 U/L (0-32); Blood Urea Nitrogen 15 mg/dL (6-20); Carbon Dioxide 26 mmol/L (22-29); Chloride 103 mmol/L (98-107); Globulin 3.4 g/dL (1.3-4.6); Glomerular Filtration Rate 87.4 mL/min (90-130); Glucose 91 mg/dL (65-115); Osmolality Calculated 284 mOsm/kg (285-295); Sodium 137 mmol/L (136-145); Total Bilirubin 0.2 mg/dL (0.15-1.2); Total Protein 7.4 g/dL (6.6-8.7)
[2023-03-17 16:40] VITALS: BP 117/90; PULSE 104; RESP 16; O2SAT 95
== END 2023-03-17 17:06 | disposition home or self-care (01) ==
PROVIDERS: Emergency Provider Family Medicine; PCP Nurse Practitioner Family
DX: G40.909 Epilepsy, unspecified, not intractable, without status epilepticus (principal); Z91.148 Patient's other noncompliance with medication regimen for other reason; Z87.891 Personal history of nicotine dependence
CPT/HCPCS: 36415; 80053; 85025; 96374; 96375; 99284; J1953; J2405

== ENCOUNTER → 2023-03-24 11:24 | Outpatient (BNVA) | payer MEDICAID, SELFPAY | PROVIDERS: PCP Nurse Practitioner Family; Visit Provider Specialist | DX: G40.309 Generalized idiopathic epilepsy and epileptic syndromes, not intractable, without status epilepticus (principal); G43.711 Chronic migraine without aura, intractable, with status migrainosus | CPT/HCPCS: 95970; 99214 ==

== ENCOUNTER 2023-05-01 11:55 | Outpatient (CLI) | payer MEDICAID, SELFPAY ==
[2023-05-02 07:48] LABS: Levetiracetam Immunoassy 18.6 mcg/mL (6.0-46.0)
[2023-05-30 15:53] LABS: Lacosamide (Vimpat) 2.5
== END 2023-05-01 11:56 | disposition home or self-care (01) ==
LOC: LAB 11:56
PROVIDERS: PCP Nurse Practitioner Family; Visit Provider Specialist
DX: G40.309 Generalized idiopathic epilepsy and epileptic syndromes, not intractable, without status epilepticus (principal)
CPT/HCPCS: 80177; 80299

== ENCOUNTER → 2023-05-09 08:04 | Outpatient (BNVA) | payer MEDICAID, SELFPAY | PROVIDERS: PCP Nurse Practitioner Family; Visit Provider Specialist | DX: G40.A19 Absence epileptic syndrome, intractable, without status epilepticus (principal); Z96.89 Presence of other specified functional implants | CPT/HCPCS: 95970; 99214 ==

== ENCOUNTER → 2023-07-09 10:12 | Outpatient (BNVA) | payer MEDICAID, SELFPAY | PROVIDERS: Visit Provider Specialist | DX: G40.309 Generalized idiopathic epilepsy and epileptic syndromes, not intractable, without status epilepticus (principal); R29.90 Unspecified symptoms and signs involving the nervous system; Z96.89 Presence of other specified functional implants; G40.A19 Absence epileptic syndrome, intractable, without status epilepticus; F60.3 Borderline personality disorder; F41.1 Generalized anxiety disorder; G43.711 Chronic migraine without aura, intractable, with status migrainosus | CPT/HCPCS: 95970; 99214 ==

== ENCOUNTER → 2023-08-26 14:46 | Outpatient (BNVA) | payer MEDICAID, SELFPAY | PROVIDERS: PCP Nurse Practitioner Family; Visit Provider Nurse Practitioner Family | DX: R10.9 Unspecified abdominal pain | CPT/HCPCS: 81000; 81025; 87086 ==

== ENCOUNTER 2023-09-01 09:53 | Emergency (ER) | payer MEDICAID, SELFPAY ==
[2023-09-01 10:15] VITALS: BP 120/82; PULSE 100; RESP 16; TEMP 36.7; O2SAT 98; BMI 38.5
[2023-09-01 11:11] LABS: Rapid Strep A Test Positive (Negative)
--- NOTE | 2023-09-01 11:16 | W.ED.GENADLT ---
HPI - General Adult General: Chief complaint: Upper Respiratory Infection Stated complaint: seizure, swollen tongue, unable to speak well Time Seen by Provider: 09/01/23 10:27 Source: patient Mode of arrival: ambulatory Limitations: no limitations History of Present Illness: Patient is a 27-year-old female presents to ED today with assumedly her care staff here for concerns of possible strep throat. Care staff states herself has recently had strep and now patient is complaining of a sore throat. She does have a longstanding history of epilepsy and is being managed by Dr. Campos. Care staff said she had a seizure on in which she bit her tongue. She is reporting that her tongue feels sore. No fevers. Patient is currently on antibiotics for UTI. She is able to control her secretions, swallow liquids as well as soft foods. Onset (ago): day(s) Location: mouth (tongue/throat) Severity: moderate Pain Consistency: constant Relieving factors: none Exacerbating factors: other (swallowing) Associated symptoms: Deny chest pain, dyspnea, headache(s), malaise, nausea or vomiting Treatments prior to arrival: none Review of Systems Const: Denies: fever(s), chills, body aches, fatigue or malaise ENMT: Reports: throat pain, enlarged tonsils, odynophagia and swelling of lips/tongue (reports tongue swelling where she bit it) Card: Denies: chest pain Resp: Denies: dyspnea GI: Denies: nausea, vomiting or diarrhea Musc: Denies: neck pain Neuro: Denies: headache(s) [facility] ED PFSH: Medical History Generalized epilepsy, intractable Anxiety Hereditary and idiopathic neuropathy Depressed mood Mood disorder Psychiatric care Surgical History History of eye surgery Status post placement of VNS (vagus nerve stimulation) device Family History Other Diabetes Denies family history of Cervical cancer Ovarian cancer Breast cancer Hypertension Uterine cancer Stroke Social History Smoking and tobacco/nicotine status: former use of tobacco/nicotine Second hand smoke exposure: Yes (family smokes, exposure as child) Substance/Drug Use: former Date of last use: marijuana Physical Exam Const: COMMON NORMALS: no acute distress, patient oriented x3, no limitations, alert and well nourished HENMT: FACE & SINUS: normal facial exam MOUTH: Normal oral and palatal mucosa present, lip normal and tongue abnormal (healing bite on L lateral aspect tongue with mild edema-no gaping) THROAT: abnormal tonsil bilateral erythema, exudates and hypertrophy Eye: GENERAL EYE: appearance normal, both eyes and all related structures Neck/C-Spine: COMMON NORMALS: no lymphadenopathy GENERAL: Yes normal visual inspection, No anterior neck swelling and No submandibular swelling Resp: COMMON NORMALS: normal respiratory effort and clear to auscultation bilaterally AUSCULTATION: clear to auscultation bilaterally Cardio: COMMON NORMALS: regular rate and regular rhythm RATE: regular rate RHYTHM: regular rhythm Neuro: COMMON NORMALS: patient oriented x3 SENSORIUM/ORIENTATION: Yes alert Course Vital Signs: Vital signs: Vital Signs Temperature 98.1 F 09/01/23 10:15 Pulse Rate 100 09/01/23 10:15 Respiratory Rate 16 09/01/23 10:15 Blood Pressure 120/82 09/01/23 10:15 Pulse Oximetry 98 09/01/23 10:15 Oxygen Delivery Me thod Room Air 09/01/23 10:15 [facility] - General Adult Medical Decision Making Patient here with exudative tonsillitis. She is positive for strep. Known positive strep exposure. She also has a healing bite to the left side of her tongue that she sustained during a seizure. She has known epilepsy on antiepileptic medication. Patient will be treated with IM Bicillin LA. Return to ED precautions given. Medical Records I reviewed the patient's medical records. Lab Data I reviewed the patient's lab results. Laboratory Results Group A Strep Rapid Positive (Negative) H 09/01/23 11:00 No radiology studies performed this visit Discharge Plan Discharge Patient Disposition: Home Clinical Impression: Acute streptococcal tonsillitis Qualifiers: Streptococcal tonsillitis recurrence: non-recurrent Qualified Code(s): J03.00 - Acute streptococcal tonsillitis, unspecified Condition: Stable Prescriptions: No Action levetiracetam 750 mg tablet extended release 24 hr See Rx Instructions .ROUTE .COMPLEX Qty: 60 5RF Dose Instruction: Take 2 tablets by mouth once daily Rx Instructions: Take 2 tablets by mouth once daily lamotrigine [Lamictal XR] 300 mg tablet extended release 24hr 300 mg PO DAILY Qty: 30 5RF Kyleena 17.5 mcg/24 hrs (5 yrs) 19.5 mg intrauterine device intrauterine nitrofurantoin monohyd/m-cryst [Macrobid] 100 mg capsule 100 mg PO Q12H 7 Days Qty: 14 0RF Rx Instructions: must administer with a meal/food lorazepam 2 mg/mL concentrate 2 mg SUBLINGUAL BID PRN (Reason: seizure activity) 15 Days Qty: 30 1RF Rx Instructions: Take 1 ml at onset of seizure. Do not exceed 2 doses/day. Discharge Orders: Discharge ED (Routine); Ordered 09/01/23 Ordered By: Beryl Daly Referrals: Aysha Suresh FNP [Primary Care Provider] - Patient Instructions: Strep Throat (DC) Activity Restrictions/Additional Instructions: As discussed you are given a one-time IM penicillin shot for treatment of your strep throat. Coding Level of Care Code ED Tractor Operator Battery for James Wagner
[2023-09-01] MEDS: penicillin g (L-A) 1,200,000 unit/2 mL Syr 1200000 UNIT IM (11:42)
== END 2023-09-01 12:13 | disposition home or self-care (01) ==
PROVIDERS: Emergency Provider Physician Assistant; PCP Nurse Practitioner Family
DX: J03.00 Acute streptococcal tonsillitis, unspecified (principal); Z87.891 Personal history of nicotine dependence
CPT/HCPCS: 87880; 96372; 99284; J0561

== ENCOUNTER → 2023-09-02 11:20 | Outpatient (BNVA) | payer MEDICAID, SELFPAY | PROVIDERS: PCP Nurse Practitioner Family; Visit Provider Nurse Practitioner Family | DX: N39.0 Urinary tract infection, site not specified (principal) | CPT/HCPCS: 81000 ==

== ENCOUNTER → 2023-09-25 10:41 | Outpatient (BNVA) | payer MEDICAID, SELFPAY | PROVIDERS: PCP Nurse Practitioner Family; Visit Provider Nurse Practitioner Women's Health | DX: R30.0 Dysuria (principal); R82.90 Unspecified abnormal findings in urine; Z01.419 Encounter for gynecological examination (general) (routine) without abnormal findings | CPT/HCPCS: 81000; 87086 ==

== ENCOUNTER → 2023-10-23 16:28 | Outpatient (BNVA) | payer MEDICAID, SELFPAY | PROVIDERS: PCP Nurse Practitioner Family; Visit Provider Nurse Practitioner Psychiatric/Mental Health | DX: Z03.89 Encounter for observation for other suspected diseases and conditions ruled out (principal); F41.1 Generalized anxiety disorder; F60.3 Borderline personality disorder | CPT/HCPCS: 80306 ==

== ENCOUNTER → 2023-10-31 13:00 | Outpatient (BNVA) | payer MEDICAID, SELFPAY | PROVIDERS: PCP Nurse Practitioner Family; Visit Provider Specialist | DX: G40.309 Generalized idiopathic epilepsy and epileptic syndromes, not intractable, without status epilepticus (principal); Z96.89 Presence of other specified functional implants; G40.A19 Absence epileptic syndrome, intractable, without status epilepticus; R29.90 Unspecified symptoms and signs involving the nervous system | CPT/HCPCS: 80175; 95970; 99214 ==

== ENCOUNTER 2023-11-26 14:07 | Emergency (ER) | payer MEDICAID, SELFPAY ==
[2023-11-26 14:11] VITALS: BP 126/84; PULSE 90; RESP 16; TEMP 36.7; O2SAT 98
--- NOTE | 2023-11-26 14:56 | ED_ITS ---
HPI - Headache 2 General: Chief Complaint: Headache Stated Complaint: Headache Time Seen by Provider: 11/26/23 14:56 History of Present Illness: 28-year-old female comes in today with p ersistent headache since the first of the month after a seizure. Patient appears nontoxic. Patient appears in mild to no pain. Patient has a history of seizure disorder and migraine headaches. Patient had taken some Excedrin which did improve her headache but came in due to reported slurring of speech by her father. Review of Systems 2 General: Reports: 10 or more systems reviewed and unremarkable except in HPI and below PFSH ED 2 PFSH: Medical History Generalized epilepsy, intractable Anxiety Hereditary and idiopathic neuropathy Depressed mood Mood disorder Psychiatric care Surgical History History of eye surgery Status post placement of VNS (vagus nerve stimulation) device Family History Other Diabetes Denies family history of Cervical cancer Ovarian cancer Breast cancer Hypertension Uterine cancer Stroke Social History Smoking and tobacco/nicotine status: never used tobacco/nicotine Physical Exam 2 Const: COMMON NORMALS: alert HENMT: COMMON NORMALS: normocephalic and TM's normal bilaterally HEAD & SCALP: normocephalic TYMPANIC MEMBRANE: TM's normal bilaterally THROAT: p osterior oropharynx normal Neck/C-Spine: COMMON NORMALS: full ROM and no meningeal signs CERVICAL SPINE: Yes cervical ROM normal Resp: COMMON NORMALS: normal respiratory effort and clear to auscultation bilaterally AUSCULTATION: clear to auscultation bilaterally Cardio: COMMON NORMALS: regular rate and regular rhythm RATE: regular rate RHYTHM: regular rhythm GI: COMMON NORMALS: Soft to palpation and non-tender PALPATION: Yes Soft to palpation : COMMON NORMALS: Yes no CVA tenderness BLADDER/KIDNEY EXAM: Yes no CVA tenderness Back/Pelvis: COMMON NORMALS: no CVA tenderness and thoracic and lumbar spine normal to inspection Extremity: COMMON NORMALS: normal to inspection and no pedal edema Neuro: SENSORIUM/ORIENTATION: Yes alert MENINGEAL SIGNS: Yes no meningeal signs Skin: COMMON NORMALS: turgor normal GENERAL SKIN EXAM: turgor normal Course 2 Vital Signs: Vital signs: Vital Signs Temperature 98.0 F 11/26/23 14:11 Pulse Rate 90 11/26/23 14:11 Respiratory Rate 16 11/26/23 14:11 Blood Pressure 126/84 11/26/23 14:11 Pulse Oximetry 98 11/26/23 14:11 MDM - Headache Medical Decision Making 28-year-old female comes in today with persistent headache since seizure earlier this month. On exam patient has no focal neurodeficits. Patient moves all extremities well. Respirations are even lungs are clear to auscultation. Differential diagnosis includes not limited to stroke syndrome, intracranial bleeding, malingering, dehydration, anxiety disorder, migraine headache. CBC CMP was unremarkable. CT scan of the head noted no intracranial acute process. Reviewed exam with patient with recommendation for treatment and follow-up. Patient reported understanding. Lab Data 11/26/23 15:14 11/26/23 15:[address] 11/26/23 15:06 IMPRESSION: No acute intracranial abnormality. Laboratory Results WBC 7.40 10^3/uL (3.29-11.43) 11/26/23 15:14 RBC 4.68 10^6/uL (3.85-5.65) 11/26/23 15:14 Hgb 14.00 g/dL (11.27-16.99) 11/26/23 15:14 Hct 42.1 % (36-47) 11/26/23 15:14 MCV 90.0 fl (85-98) 11/26/23 15:14 MCH 29.9 pg (27-33) 11/26/23 15:14 MCHC 33.3 g/dL (30-55) 11/26/23 15:14 RDW 12.6 % (12.1-15.1) 11/26/23 15:14 Plt Count 236 10^3/cmm (157-399) 11/26/23 15:14 MPV 9.9 fL (7.4-10.4) 11/26/23 15:14 Neut % (Auto) 57.6 % 11/26/23 15:14 Lymph % (Auto) 35.0 % 11/26/23 15:14 [place] % (Auto) 5.9 % 11/26/23 15:14 Eos % (Auto) 0.9 % 11/26/23 15:14 Baso % (Auto) 0.5 % 11/26/23 15:14 Neut # (Auto) 4.25 10^3/uL (1.8-7.7) 11/26/23 15:14 Lymph # (Auto) 2.6 10^3/uL (0.8-4.8) 11/26/23 15:14 [place] # (Auto) 0.4 10^3/uL (0.2-0.9) 11/26/23 15:14 Eos # (Auto) 0.1 10^3/uL (0.0-0.8) 11/26/23 15:14 Baso # (Auto) 0.0 10^3/uL (0.0-0.1) 11/26/23 15:14 Nucleated RBC % (auto) 0 % 11/26/23 15:14 Nucleated RBCs # 0.0 /100WBC 11/26/23 15:14 Sodium 137 mmol/L (136-145) 11/26/23 15:14 Potassium 3.7 mmol/L (3.5-5.1) 11/26/23 15:14 Chloride 101 mmol/L (98-107) 11/26/23 15:14 Carbon Dioxide 25 mmol/L (22-29) 11/26/23 15:14 Anion Gap 14.7 (5-19) 11/26/23 15:14 BUN 20 mg/dL (6-20) 11/26/23 15:14 Creatinine 0.8 mg/dL (0.5-0.9) 11/26/23 15:14 GFR Calculation 86.7 mL/min (90-130) L 11/26/23 15:14 Glucose 94 mg/dL (65-115) 11/26/23 15:14 Calculated Osmolality 286 mOsm/kg (285-295) 11/26/23 15:14 Calcium 9.5 mg/dL (8.5-10.5) 11/26/23 15:14 Total Bilirubin 0.2 mg/dL (0.15-1.2) 11/26/23 15:14 AST 13 U/L (0-32) 11/26/23 15:14 ALT 12 U/L (0-33) 11/26/23 15:14 Alkaline Phosphatase 96 U/L (35-105) 11/26/23 15:14 C-Reactive Protein 4.0 mg/L (0.0-4.9) 11/26/23 15:14 Total Protein 7.4 g/dL (6.6-8.7) 11/26/23 15:14 Albumin 4.1 g/dL (3.5-5.2) 11/26/23 15:14 Globulin 3.3 g/dL (1.3-4.6) 11/26/23 15:14 HCG, Qual Negative (Negative) 11/26/23 15:14 All radiology interpretation(s) finalized by discharge Discharge Plan Discharge Patient Disposition: Home Clinical Impression: Headache Qualifiers: Headache type: unspecified Headache chronicity pattern: acute headache I ntractability: intractable Qualified Code(s): R51.9 - Headache, unspecified Condition: Stable Prescriptions: No Action levetiracetam 750 mg tablet extended release 24 hr See Rx Instructions .ROUTE .COMPLEX Qty: 60 5RF Dose Instruction: Take 2 tablets by mouth once daily Rx Instructions: Take 2 tablets by mouth once daily lamotrigine [Lamictal XR] 300 mg tablet extended release 24hr 300 mg PO DAILY Qty: 30 5RF Kyleena 17.5 mcg/24 hrs (5 yrs) 19.5 mg intrauterine device intrauterine lorazepam 2 mg/mL concentrate 2 mg SUBLINGUAL BID PRN (Reason: seizure activity) 15 Days Qty: 30 1RF Rx Instructions: Take 1 ml at onset of seizure. Do not exceed 2 doses/day. metronidazole 500 mg tablet 500 mg PO BID 7 Days Qty: 14 0RF lamotrigine [Lamictal XR] 100 mg tablet extended release 24hr 100 mg PO DAILY Qty: 90 1RF Discharge Orders: Discharge ED (Routine); Ordered 11/26/23 Ordered By: Alcides Carranza Referrals: Aysha Suresh FNP [Primary Care Provider] - Discharge Diet: Usual diet Discharge Activity: Increase activity as tolerated Patient Instructions: Migraine Headache (ED) Activity Restrictions/Additional Instructions: Drink plenty of water and fluids. Continue with routine medications as directed. Follow-up with primary care for further instructions. Return to ED for new concerns. Coding Level of Care Code ED Doll Wig Maker for James Wagner
--- NOTE | 2023-11-26 15:06 | CTR_ITS ---
PROCEDURE INFORMATION: Exam: CT Head Without Contrast Exam date and time: 11/26/2023 3:16 PM Age: 28 years old Clinical indication: Pain; Headache; Additional info: Headache not improved with therapy TECHNIQUE: Imaging protocol: Computed tomography of the head without contrast. Radiation optimization: All CT scans at this facility use at least one of these dose optimization techniques: automated exposure control; mA and/or kV adjustment per patient size (includes targeted exams where dose is matched to clinical indication); or iterative reconstruction. COMPARISON: MR nikkie's wo con [id number] 04/11/2017 1:32 PM RADIATION DOSE METRICS: Total DLP (mGy-cm): 963.45 FINDINGS: Brain: No midline shift. Ventricles, cisterns, and sulci are normal. No mass, acute infarct, hemorrhage, or extraaxial fluid collection. Cerebral ventricles: No ventriculomegaly. Paranasal sinuses: Visualized sinuses are unremarkable. No fluid levels. Mastoid air cells: Visualized mastoid air cells are well aerated. Bones: Unremarkable. No acute fracture. Soft tissues: Unremarkable. CT/CT head wo con* [id number] IMPRESSION: No acute intracranial abnormality.
[2023-11-26 15:21] LABS: Basophils % 0.5 %; Eosinophils # 0.1 10^3/uL (0.0-0.8); Eosinophils % 0.9 %; Hematocrit 42.1 % (36-47); Lymphocytes # 2.6 10^3/uL (0.8-4.8); Mean Corpuscular HGB Conc 33.3 g/dL (30-55); Mean Corpuscular Hemoglobin 29.9 pg (27-33); Mean Platelet Volume 9.9 fL (7.4-10.4); Monocytes # 0.4 10^3/uL (0.2-0.9); Monocytes % 5.9 %; Neutrophils # 4.25 10^3/uL (1.8-7.7); Neutrophils % 57.6 %; Nucleated Red Blood Cells % 0 %; Platelet Count 236 10^3/cmm (157-399); Red Blood Count 4.68 10^6/uL (3.85-5.65); Red Cell Distribution Width 12.6 % (12.1-15.1)
[2023-11-26 15:36] LABS: HCG, Serum Qual Negative (Negative)
[2023-11-26 15:37] LABS: Alanine Aminotransferase 12 U/L (0-33); Albumin Level 4.1 g/dL (3.5-5.2); Alkaline Phosphatase 96 U/L (35-105); Anion Gap 14.7 (5-19); Aspartate Amino Transferase 13 U/L (0-32); Blood Urea Nitrogen 20 mg/dL (6-20); Calcium 9.5 mg/dL (8.5-10.5); Carbon Dioxide 25 mmol/L (22-29); Chloride 101 mmol/L (98-107); Creatinine Clr Calc Pharmacy 114.0574; Globulin 3.3 g/dL (1.3-4.6); Glomerular Filtration Rate 86.7 mL/min (90-130); Glucose 94 mg/dL (65-115); Osmolality Calculated 286 mOsm/kg (285-295); Potassium 3.7 mmol/L (3.5-5.1); Sodium 137 mmol/L (136-145); Total Bilirubin 0.2 mg/dL (0.15-1.2); Total Protein 7.4 g/dL (6.6-8.7)
--- NOTE | 2023-11-26 16:13 | PC.NURSE ---
Pt states the medication she took at home is starting to wear off, requesting tylenol or something for pain. Provider informed
[2023-11-26] MEDS: diphenhydrAMINE 50 mg/mL SDV 1mL 12.5 MG IVP (16:23)
[2023-11-26] MEDS: metoclopramide 5 mg/mL SDV 2 mL 10 MG IVP (16:23)
[2023-11-26] MEDS: ketorolac 30 mg/mL INJ 15 MG IVP (16:23)
--- NOTE | 2023-11-26 16:54 | PC.NURSE ---
Resting with eyes closed, respirations even and nonlabored
[2023-11-26 17:06] VITALS: BP 101/66; PULSE 79; RESP 14; O2SAT 98
== END 2023-11-26 17:07 | disposition home or self-care (01) ==
PROVIDERS: Emergency Provider Nurse Practitioner Family; PCP Nurse Practitioner Family
DX: R51.9 Headache, unspecified (principal)
CPT/HCPCS: 70450; 80053; 84703; 85025; 86140; 96374; 96375; 99285; J1200; J1885; J2765

== ENCOUNTER 2023-11-27 22:29 | Emergency (ER) | payer MEDICAID, SELFPAY ==
[2023-11-27 22:35] VITALS: BP 127/84; PULSE 94; RESP 20; TEMP 36.6; O2SAT 99; BMI 38.0
[2023-11-27 22:56] VITALS: BP 127/84; PULSE 95; RESP 16; O2SAT 99
--- NOTE | 2023-11-27 22:56 | ED_ITS ---
HPI - Headache 2 General: Chief Complaint: Headache Stated Complaint: Headache /seizure today Time Seen by Provider: 11/27/23 22:29 History of Present Illness: Patient brought in by EMS for complaints of a headache for the last week. And seizures earlier today. Patient stated she did not take her medicine yesterday or today for her seizures. Patient was seen in the ER yesterday and given a migraine cocktail and had complete workup and discharge. She said her headache does not change its her normal every day headache and her seizure she had today was her normal seizures she has had for a very long time. Patient did not call EMS to bring her here. Her family called EMS to bring her here to be evaluated. Review of Systems 2 General: Reports: 10 or more systems reviewed and unremarkable except in HPI and below PFSH ED 2 PFSH: Medical History Generalized epilepsy, intractable Anxiety Hereditary and idiopathic neuropathy Depressed mood Mood disorder Psychiatric care Surgical History History of eye surgery Status post placement of VNS (vagus nerve stimulation) device Family History Other Diabetes Denies family history of Cervical cancer Ovarian cancer Breast cancer Hypertension Uterine cancer Stroke Social History Smoking and tobacco/nicotine status: never used tobacco/nicotine Physical Exam 2 Const: COMMON NORMALS: no acute distress, average body habitus, patient oriented x3, no limitations, healthy appearing, alert and well nourished HENMT: COMMON NORMALS: normocephalic, atraumatic, hearing grossly normal bilaterally, external ears normal, Normal external nose present and moist oral mucous membranes HEAD & SCALP: normocephalic and atraumatic NOSE: Normal external nose present EXTERNAL EAR: Yes external ears normal Eye: COMMON NORMALS: Equal, round and reactive pupils present, EOMs intact bilaterally, conjunctivae normal and no scleral icterus CONJUNCTIVA: Yes conjunctivae normal PUPIL: Yes Equal, round and reactive pupils present Neck/C-Spine: COMMON NORMALS: full ROM, no lymphadenopathy, supple, no meningeal signs, no JVD and Thyroid normal THYROID: Thyroid normal Chest: COMMONS NORMALS: normal inspection of the chest and normal palpation of entire chest wall Resp: COMMON NORMALS: normal respiratory effort, No retractions, No use of accessory muscles and clear to auscultation bilaterally AUSCULTATION: clear to auscultation bilaterally Cardio: COMMON NORMALS: no JVD, regular rate, regular rhythm, S1 normal heart sound present, S2 normal heart sound present, No gallops present (Cardio), No clicks present (Cardio), No murmurs present (Cardio) and No rub (Cardio) R ATE: regular rate RHYTHM: regular rhythm HEART SOUNDS: S1 normal heart sound present and S2 normal heart sound present GI: COMMON NORMALS: Normal to inspection, nondistended, normoactive bowel sounds present, Soft to palpation, non-tender, No hepatosplenomegaly present and no masses PALPATION: Yes Soft to palpation and Yes No hepatosplenomegaly present Neuro: COMMON NORMALS: patient oriented x3 SENSORIUM/ORIENTATION: Yes alert MENINGEAL SIGNS: Yes no meningeal signs Course 2 Vital Signs: Vital signs: Vital Signs Temperature 97.8 F 11/27/23 22:35 Pulse Rate 95 11/27/23 22:56 Respiratory Rate 16 11/27/23 22:56 Blood Pressure 127/84 11/27/23 22:56 Pulse Oximetry 99 11/27/23 22:56 Oxygen Delivery Me thod Room Air 11/27/23 22:56 MDM - Headache Medical Decision Making Reviewed the note from the ER yesterday along with labs and imaging. Lab work was obtained patient was given her home dose of Lamictal and Keppra. Patient be discharged and told to take her medicine as directed and follow-up with her PCP. Differential Diagnosis Likely migraine; Unlikely tension headache, subarachnoid hemorrhage, headache, meningitis, sinusitis or postconcussion syndrome Medical Records I reviewed the patient's medical records. Lab Data I reviewed the patient's lab results. 11/27/23 21:47 11/27/23 21:47 Laboratory Results WBC 8.60 10^3/uL (3.29-11.43) 11/27/23 21:47 RBC 4.70 10^6/uL (3.85-5.65) 11/27/23 21:47 Hgb 14.20 g/dL (11.27-16.99) 11/27/23 21:47 Hct 42.7 % (36-47) 11/27/23 21:47 MCV 90.9 fl (85-98) 11/27/23 21:47 MCH 30.2 pg (27-33) 11/27/23 21:47 MCHC 33.3 g/dL (30-55) 11/27/23 21:47 RDW 12.7 % (12.1-15.1) 11/27/23 21:47 Plt Count 257 10^3/cmm (157-399) 11/27/23 21:47 MPV 10.4 fL (7.4-10.4) 11/27/23 21:47 Neut % (Auto) 50.3 % 11/27/23 21:47 Lymph % (Auto) 42.4 % 11/27/23 21:47 [place] % (Auto) 5.7 % 11/27/23 21:47 Eos % (Auto) 0.8 % 11/27/23 21:47 Baso % (Auto) 0.7 % 11/27/23 21:47 Neut # (Auto) 4.32 10^3/uL (1.8-7.7) 11/27/23 21:47 Lymph # (Auto) 3.7 10^3/uL (0.8-4.8) 11/27/23 21:47 [place] # (Auto) 0.5 10^3/uL (0.2-0.9) 11/27/23 21:47 Eos # (Auto) 0.1 10^3/uL (0.0-0.8) 11/27/23 21:47 Baso # (Auto) 0.1 10^3/uL (0.0-0.1) 11/27/23 21:47 Nucleated RBC % (auto) 0 % 11/27/23 21:47 Nucleated RBCs # 0.0 /100WBC 11/27/23 21:47 Sodium 139 mmol/L (136-145) 11/27/23 21:47 Potassium 3.7 mmol/L (3.5-5.1) 11/27/23 21:47 Chloride 101 mmol/L (98-107) 11/27/23 21:47 Carbon Dioxide 18 mmol/L (22-29) L 11/27/23 21:47 Anion Gap 23.7 (5-19) H 11/27/23 21:47 BUN 21 mg/dL (6-20) H 11/27/23 21:47 Creatinine 1.0 mg/dL (0.5-0.9) H 11/27/23 21:47 GFR Calculation 67.0 mL/min (90-130) L 11/27/23 21:47 Glucose 94 mg/dL (65-115) 11/27/23 21:47 Calculated Osmolality 291 mOsm/kg (285-295) 11/27/23 21:47 Calcium 9.3 mg/dL (8.5-10.5) 11/27/23 21:47 Total Bilirubin 0.3 mg/dL (0.15-1.2) 11/27/23 21:47 AST 33 U/L (0-32) H 11/27/23 21:47 ALT 21 U/L (0-33) 11/27/23 21:47 Alkaline Phosphatase 106 U/L (35-105) H 11/27/23 21:47 Total Protein 7.9 g/dL (6.6-8.7) 11/27/23 21:47 Albumin 4.3 g/dL (3.5-5.2) 11/27/23 21:47 Globulin 3.6 g/dL (1.3-4.6) 11/27/23 21:47 XR interpretation done by ED provider, pending radiology final review Discharge Plan Discharge Patient Disposition: Home Clinical Impression: Seizure disorder, Non-compliance Migraine Qualifiers: Migraine type: other Status migrainosus presence: without status migrainosus I ntractability: not intractable Qualified Code(s): G43.809 - Other migraine, not intractable, without status migrainosus Condition: Stable Prescriptions: No Action levetiracetam 750 mg tablet extended release 24 hr See Rx Instructions .ROUTE .COMPLEX Qty: 60 5RF Dose Instruction: Take 2 tablets by mouth once daily Rx Instructions: Take 2 tablets by mouth once daily lamotrigine [Lamictal XR] 300 mg tablet extended release 24hr 300 mg PO DAILY Qty: 30 5RF Kyleena 17.5 mcg/24 hrs (5 yrs) 19.5 mg intrauterine device intrauterine lorazepam 2 mg/mL concentrate 2 mg SUBLINGUAL BID PRN (Reason: seizure activity) 15 Days Qty: 30 1RF Rx Instructions: Take 1 ml at onset of seizure. Do not exceed 2 doses/day. metronidazole 500 mg tablet 500 mg PO BID 7 Days Qty: 14 0RF lamotrigine [Lamictal XR] 100 mg tablet extended release 24hr 100 mg PO DAILY Qty: 90 1RF Discharge Orders: Discharge ED (Routine); Ordered 11/28/23 Ordered By: Jono Zuluaga Referrals: Aysha Suresh FNP [Primary Care Provider] - 1 week Patient Instructions: Seizures, Migraine Headache (ED) Activity Restrictions/Additional Instructions: Lab work that was repeated in the ER today was unremarkable. You are given your seizure medicine that you missed for 2 days. Please follow-up with your primary care practitioner for further evaluation and treatment. Please take all your medicine as directed. Coding Level of Care Code ED Efficiency Engineer for James Wagner
[2023-11-27 23:00] LABS: Basophils # 0.1 10^3/uL (0.0-0.1); Basophils % 0.7 %; Eosinophils # 0.1 10^3/uL (0.0-0.8); Eosinophils % 0.8 %; Hematocrit 42.7 % (36-47); Lymphocytes # 3.7 10^3/uL (0.8-4.8); Lymphocytes % 42.4 %; Mean Corpuscular HGB Conc 33.3 g/dL (30-55); Mean Corpuscular Hemoglobin 30.2 pg (27-33); Mean Corpuscular Volume 90.9 fl (85-98); Mean Platelet Volume 10.4 fL (7.4-10.4); Monocytes # 0.5 10^3/uL (0.2-0.9); Monocytes % 5.7 %; Neutrophils # 4.32 10^3/uL (1.8-7.7); Neutrophils % 50.3 %; Nucleated Red Blood Cells % 0 %; Platelet Count 257 10^3/cmm (157-399); Red Cell Distribution Width 12.7 % (12.1-15.1)
[2023-11-27] MEDS: lamoTRIgine 100 mg Tablet 400 MG PO (23:10)
[2023-11-27] MEDS: levETIRAcetam 1,000 mg/10 mL UDC 750 MG PO (23:11)
[2023-11-27 23:21] LABS: Alanine Aminotransferase 21 U/L (0-33); Albumin Level 4.3 g/dL (3.5-5.2); Alkaline Phosphatase 106 U/L (35-105); Anion Gap 23.7 (5-19); Aspartate Amino Transferase 33 U/L (0-32); Blood Urea Nitrogen 21 mg/dL (6-20); Calcium 9.3 mg/dL (8.5-10.5); Carbon Dioxide 18 mmol/L (22-29); Chloride 101 mmol/L (98-107); Creatinine Clr Calc Pharmacy 91.2459; Globulin 3.6 g/dL (1.3-4.6); Glucose 94 mg/dL (65-115); Osmolality Calculated 291 mOsm/kg (285-295); Potassium 3.7 mmol/L (3.5-5.1); Sodium 139 mmol/L (136-145); Total Bilirubin 0.3 mg/dL (0.15-1.2); Total Protein 7.9 g/dL (6.6-8.7)
[2023-11-28 01:14] VITALS: BP 127/84; PULSE 95; RESP 16; TEMP 36.6; O2SAT 99
== END 2023-11-28 01:15 | disposition home or self-care (01) ==
PROVIDERS: Emergency Provider Emergency Medicine; PCP Nurse Practitioner Family
DX: G40.909 Epilepsy, unspecified, not intractable, without status epilepticus (principal); Z91.148 Patient's other noncompliance with medication regimen for other reason; G43.809 Other migraine, not intractable, without status migrainosus
CPT/HCPCS: 80053; 85025; 99283

== ENCOUNTER 2024-03-03 08:24 | Emergency (ER) | payer MEDICAID, SELFPAY ==
[2024-03-03] VITALS (9 sets, daily range): BP systolic 109–128; BP diastolic 65–84; PULSE 78–100; RESP 13–24; TEMP 36.5; O2SAT 94–100; BMI 36.3
--- NOTE | 2024-03-03 08:19 | CT_ITS ---
WS: [id number] CT HEAD NONCONTRAST HISTORY: seizure TECHNIQUE: Contiguous axial imaging performed through the brain in 2.5 mm imaging. Bone and soft tiss ue windows. Sagittal and coronal reformats reviewed. All CT scans at [facility] use at least one of these dose optimization techniques: automated exposure control; mA and/or kV adjustment per pa tient size (includes targeted exams where dose is matched to clinical indication); or iterative recon struction. DLP: 1333.18 mGy.cm COMPARISON: 11/26/2023 No acute intracranial hemorrhage, midline shift or mass effect. No atrophy or prior infarcts or herniation. Ventricles: Normal size with no hydrocephalus. Paranasal sinuses: As visualized are clear. Mastoid air cells: Well pneumatized. Calvarium and scalp: Skull is intact with no soft tissue edema or swelling. CT/CT head wo con* [id number] IMPRESSION: Negative head CT.
--- NOTE | 2024-03-03 08:21 | ED_ITS ---
HPI - Seizure 2 General: Chief Complaint: Seizure Stated Complaint: seizure Source: patient and EMS Mode of arrival: EMS History of Present Illness: HPI Narrative: 28-year-old female with a long history o f seizures EMS brought her today after seizure lasted roughly 15 to 15 minutes. Patient is on Lamictal and Keppra that gave her to do both as a Versed she is postictal she is now becoming more responsive she was able to answer my questions tell me her name. No known head injury no known recent illness or fever. Patient states she just came back to [place] yesterday she had been with her dad's and has not been taking her meds as prescribed Seizure History: Yes Associated symptoms: Deny chest pain, chills or fever(s) Related Data Home Medications Medication Instructions Recorded Confirmed levonorgestrel 17.5 mcg/24 hr (up 1 device intrauterine .[id number] 08/26/23 03/03/24 to 5 yrs) 19.5mg intrauterine device (Kyleena) lamotrigine 300 mg tablet,extended 300 mg PO DAILY 03/03/24 03/03/24 release 24 hr Previous Rx's Medication Instructions Recorded lamotrigine 100 mg tablet,extended 100 mg PO DAILY #90 tabs 11/18/23 release 24 hr (Lamictal XR) lorazepam 2 mg/mL oral concentrate 2 mg sublingual BID PRN seizure 11/28/23 activity 15 days #30 mL levetiracetam 750 mg 1,500 mg (2 x 750 mg) PO DAILY #60 03/03/24 tablet,extended release 24 hr tabs Allergies Allergy/AdvReac Type Severity Reaction Status Date / Time cat dander Allergy Unknown Verified 02/10/24 06:58 dog dander Allergy Unknown Verified 02/10/24 06:58 latex Allergy ALGY-Rash Verified 02/10/24 06:58 mold Allergy Unknown Verified 02/10/24 06:58 adhesive tape AdvReac Severe Unknown Verified 02/10/24 06:58 prednisone AdvReac Intermediate Shaky & Verified 02/10/24 06:58 abd pain danielle Allergy Mild ALGY-Conges Uncoded 02/10/24 06:58 suzan Review of Systems 2 Const: Denies: fever(s), chills, body aches or change in appetite ENMT: Denies: throat pain or dental pain Card: Denies: chest pain Resp: Denies: dyspnea GI: Denies: abdominal pain, nausea, vomiting or diarrhea : Denies: dysuria Musc: Denies: neck pain or back pain Skin/Breast: Denies: rash Neuro: Reports: seizure-like activity; Denies: headache(s) PFSH ED 2 PFSH: Medical History Generalized epilepsy, intractable Anxiety Hereditary and idiopathic neuropathy Depressed mood Mood disorder Psychiatric care Surgical History History of eye surgery Status post placement of VNS (vagus nerve stimulation) device Family History Other Diabetes Denies family history of Cervical cancer Ovarian cancer Breast cancer Hypertension Uterine cancer Stroke Social History Smoking and tobacco/nicotine status: never used tobacco/nicotine Physical Exam 2 Const: COMMON NORMALS: patient oriented x3 HENMT: COMMON NORMALS: normocephalic and atraumatic HEAD & SCALP: n ormocephalic and atraumatic Eye: COMMON NORMALS: Equal, round and reactive pupils present and EOMs intact bilaterally PUPIL: Yes Equal, round and reactive pupils present Neck/C-Spine: COMMON NORMALS: full ROM and supple Chest: COMMONS NORMALS: normal inspection of the chest and normal palpation of entire chest wall Resp: COMMON NORMALS: normal respiratory effort, No retractions, No use of accessory muscles and clear to auscultation bilaterally AUSCULTATION: clear to auscultation bilaterally Cardio: COMMON NORMALS: regular rate, regular rhythm and No murmurs present (Cardio) RATE: regular rate RHYTHM: regular rhythm GI: COMMON NORMALS: Normal to inspection, nondistended, normoactive bowel sounds present, Soft to palpation, non-tender and no masses PALPATION: Yes Soft to palpation Extremity: COMMON NORMALS: normal to inspection and full ROM Neuro: COMMON NORMALS: patient oriented x3, moves all extremities and no focal motor deficits Psych: COMMON NORMALS: mental status grossly normal, Normal thought process present and cooperative THOUGHT PROCESS: Normal thought process present Skin: COMMON NORMALS: no rashes or lesions noted and no wounds GENERAL SKIN EXAM: no rashes or lesions noted Course 2 Vital Signs: Vital signs: Vital Signs Temperature 97.7 F 03/03/24 08:18 Pulse Rate 83 03/03/24 10:00 Respiratory Rate 17 03/03/24 10:00 Blood Pressure 109/77 03/03/24 10:00 Pulse Oximetry 99 03/03/24 10:00 Oxygen Delivery Me thod Room Air 03/03/24 08:18 MDM - Seizure MDM Narrative Medical decision making narrative: Patient presents here with seizure she has a long history of seizures she is well-appearing here she has not been taking her meds did give her Lamictal and IV Keppra we will prescribe her Keppra she does have a prescription for her Lamictal we will get her follow-up with neurology she understands agrees to plan Lab Data 03/03/24 08:41 03/03/24 08:41 Labs: Radiology Impressions Head CT 03/03/24 08:19 IMPRESSION: Negative head CT. Laboratory Results WBC 4.21 10^3/uL (3.29-11.43) 03/03/24 08:41 RBC 4.07 10^6/uL (3.85-5.65) 03/03/24 08:41 Hgb 12.30 g/dL (11.27-16.99) 03/03/24 08:41 Hct 38.2 % (36-47) 03/03/24 08:41 MCV 93.9 fl (85-98) 03/03/24 08:41 MCH 30.2 pg (27-33) 03/03/24 08:41 MCHC 32.2 g/dL (30-55) 03/03/24 08:41 RDW 12.3 % (12.1-15.1) 03/03/24 08:41 Plt Count 155 10^3/cmm (157-399) L 03/03/24 08:41 MPV 11.4 fL (7.4-10.4) H 03/03/24 08:41 Neut % (Auto) 48.9 % 03/03/24 08:41 Lymph % (Auto) 38.2 % 03/03/24 08:41 [place] % (Auto) 9.5 % 03/03/24 08:41 Eos % (Auto) 2.4 % 03/03/24 08:41 Baso % (Auto) 1.0 % 03/03/24 08:41 Neut # (Auto) 2.06 10^3/uL (1.8-7.7) 03/03/24 08:41 Lymph # (Auto) 1.6 10^3/uL (0.8-4.8) 03/03/24 08:41 [place] # (Auto) 0.4 10^3/uL (0.2-0.9) 03/03/24 08:41 Eos # (Auto) 0.1 10^3/uL (0.0-0.8) 03/03/24 08:41 Baso # (Auto) 0.0 10^3/uL (0.0-0.1) 03/03/24 08:41 Nucleated RBC % (auto) 0 % 03/03/24 08:41 Nucleated RBCs # 0.0 /100WBC 03/03/24 08:41 Sodium 143 mmol/L (136-145) 03/03/24 08:41 Potassium 3.7 mmol/L (3.5-5.1) 03/03/24 08:41 Chloride 110 mmol/L (98-107) H 03/03/24 08:41 Carbon Dioxide 22 mmol/L (22-29) 03/03/24 08:41 Anion Gap 14.7 (5-19) 03/03/24 08:41 BUN 11 mg/dL (6-20) 03/03/24 08:41 Creatinine 0.9 mg/dL (0.5-0.9) 03/03/24 08:41 GFR Calculation 75.7 mL/min (90-130) L 03/03/24 08:41 Glucose 82 mg/dL (65-115) 03/03/24 08:41 Calculated Osmolality 294 mOsm/kg (285-295) 03/03/24 08:41 Calcium 8.1 mg/dL (8.5-10.5) L 03/03/24 08:41 Total Bilirubin 0.3 mg/dL (0.15-1.2) 03/03/24 08:41 AST 29 U/L (0-32) 03/03/24 08:41 ALT 14 U/L (0-33) 03/03/24 08:41 Alkaline Phosphatase 78 U/L (35-105) 03/03/24 08:41 Total Protein 6.0 g/dL (6.6-8.7) L 03/03/24 08:41 Albumin 3.5 g/dL (3.5-5.2) 03/03/24 08:41 Globulin 2.5 g/dL (1.3-4.6) 03/03/24 08:41 HCG, Qual Negative (Negative) 03/03/24 08:41 All radiology interpretation(s) finalized by discharge Discharge Plan Discharge Patient Disposition: Home Clinical Impression: Generalized seizure Condition: Stable Prescriptions: Changed levetiracetam 750 mg tablet extended release 24 hr 1,500 mg PO DAILY Qty: 60 0RF No Action Kyleena 17.5 mcg/24 hrs (5 yrs) 19.5 mg intrauterine device 1 device intrauterine .[id number] lamotrigine [Lamictal XR] 100 mg tablet extended release 24hr 100 mg PO DAILY Qty: 90 1RF lorazepam 2 mg/mL concentrate 2 mg SUBLINGUAL BID PRN (Reason: seizure activity) 15 Days Qty: 30 1RF Rx Instructions: Take 1 ml at onset of seizure. Do not exceed 2 doses/day. lamotrigine 300 mg tablet extended release 24hr 300 mg PO DAILY Discharge Orders: Discharge ED (Routine); Ordered 03/03/24 Ordered By: Daya Doan Referrals: Toshia Campos MD [Physician] - 1-3 days Aysha Suresh FNP [Primary Care Provider] - Discharge Diet: Advance as tolerated Discharge Activity: Resume usual activity Patient Instructions: Recurrent Seizures in Adults (ED) Coding Level of Care Code ED Electroencephalograph Technician for James Wagner
[2024-03-03] MEDS: levETIRAcetam 1,000 MG/100 ML PREMIX 400 MG IV (08:24)
[2024-03-03 08:59] LABS: Eosinophils # 0.1 10^3/uL (0.0-0.8); Eosinophils % 2.4 %; Hematocrit 38.2 % (36-47); Lymphocytes # 1.6 10^3/uL (0.8-4.8); Lymphocytes % 38.2 %; Mean Corpuscular HGB Conc 32.2 g/dL (30-55); Mean Corpuscular Hemoglobin 30.2 pg (27-33); Mean Corpuscular Volume 93.9 fl (85-98); Mean Platelet Volume 11.4 fL (7.4-10.4); Monocytes # 0.4 10^3/uL (0.2-0.9); Monocytes % 9.5 %; Neutrophils # 2.06 10^3/uL (1.8-7.7); Neutrophils % 48.9 %; Nucleated Red Blood Cells % 0 %; Platelet Count 155 10^3/cmm (157-399); Red Blood Count 4.07 10^6/uL (3.85-5.65); Red Cell Distribution Width 12.3 % (12.1-15.1); White Blood Count 4.21 10^3/uL (3.29-11.43)
[2024-03-03] MEDS: LORazepam 2 mg/mL INJ 1 mL 1 MG IVP (09:04)
[2024-03-03] MEDS: sodium chloride 0.9% 1,000 ML 999 ML IV (09:04)
[2024-03-03 09:07] LABS: HCG, Serum Qual Negative (Negative)
[2024-03-03 09:24] LABS: Alanine Aminotransferase 14 U/L (0-33); Albumin Level 3.5 g/dL (3.5-5.2); Alkaline Phosphatase 78 U/L (35-105); Anion Gap 14.7 (5-19); Aspartate Amino Transferase 29 U/L (0-32); Blood Urea Nitrogen 11 mg/dL (6-20); Calcium 8.1 mg/dL (8.5-10.5); Carbon Dioxide 22 mmol/L (22-29); Chloride 110 mmol/L (98-107); Creatinine Clr Calc Pharmacy 102.6338; Globulin 2.5 g/dL (1.3-4.6); Glomerular Filtration Rate 75.7 mL/min (90-130); Glucose 82 mg/dL (65-115); Osmolality Calculated 294 mOsm/kg (285-295); Potassium 3.7 mmol/L (3.5-5.1); Sodium 143 mmol/L (136-145); Total Bilirubin 0.3 mg/dL (0.15-1.2)
[2024-03-03] MEDS: lamoTRIgine 100 mg Tablet 300 MG PO (09:50)
--- NOTE | 2024-03-04 08:00 | DCPLANNER ---
messaged neuro for er f/u
== END 2024-03-03 11:27 | disposition home or self-care (01) ==
PROVIDERS: Emergency Provider Emergency Medicine; PCP Nurse Practitioner Family
DX: G40.409 Other generalized epilepsy and epileptic syndromes, not intractable, without status epilepticus (principal)
CPT/HCPCS: 36415; 70450; 80053; 84703; 85025; 96365; 96375; 99285; J1953; J2060; J7030

== ENCOUNTER 2024-03-08 18:23 | Inpatient (IN) | payer MEDICAID, SELFPAY ==
[2024-03-08 18:44] VITALS: BP 131/89; PULSE 111; RESP 18; TEMP 37.2; O2SAT 97; BMI 37.2
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
[2024-03-08] MEDS: LORazepam 1 mg Tablet PO (19:52)
[2024-03-08 20:16] LABS: Basophils % 0.5 %; Eosinophils % 0.2 %; Hematocrit 40.7 % (36-47); Lymphocytes # 1.7 10^3/uL (0.8-4.8); Lymphocytes % 20.8 %; Mean Corpuscular HGB Conc 32.9 g/dL (30-55); Mean Corpuscular Hemoglobin 30.7 pg (27-33); Mean Corpuscular Volume 93.1 fl (85-98); Mean Platelet Volume 10.9 fL (7.4-10.4); Monocytes # 0.5 10^3/uL (0.2-0.9); Monocytes % 6.3 %; Neutrophils # 5.92 10^3/uL (1.8-7.7); Nucleated Red Blood Cells % 0 %; Platelet Count 181 10^3/cmm (157-399); Red Blood Count 4.37 10^6/uL (3.85-5.65); Red Cell Distribution Width 12.4 % (12.1-15.1); White Blood Count 8.23 10^3/uL (3.29-11.43)
[2024-03-08 20:32] LABS: Alanine Aminotransferase 14 U/L (0-33); Albumin Level 4.2 g/dL (3.5-5.2); Alkaline Phosphatase 85 U/L (35-105); Anion Gap 13.3 (5-19); Aspartate Amino Transferase 17 U/L (0-32); Blood Urea Nitrogen 16 mg/dL (6-20); Calcium 9.2 mg/dL (8.5-10.5); Carbon Dioxide 22 mmol/L (22-29); Chloride 103 mmol/L (98-107); Creatinine Clr Calc Pharmacy 93.5914; Globulin 3.1 g/dL (1.3-4.6); Glucose 97 mg/dL (65-115); Osmolality Calculated 281 mOsm/kg (285-295); Potassium 3.3 mmol/L (3.5-5.1); Salicylate 0.7 mg/dL (3-10); Sodium 135 mmol/L (136-145); Total Bilirubin 0.3 mg/dL (0.15-1.2); Total Protein 7.3 g/dL (6.6-8.7)
[2024-03-08 20:33] LABS: Acetaminophen < 5.0 ug/mL (10-30); Alcohol Level < 10 mg/dL (0-10)
[2024-03-08 21:28] LABS: HCG Qualitative Urine. Negative (Negative)
[2024-03-08 21:45] LABS: Amphetamines Screen Urine Negative (Negative); Barbiturates Screen Urine Negative (Negative); Benzodiazepines Screen Urine Positive (Negative); Cocaine Screen Urine Negative (Negative); Opiate Screen Urine Negative (Negative); PCP Screen Urine Negative (Negative); THC Screen Urine Positive (Negative)
--- NOTE | 2024-03-08 23:58 | PC.NURSE ---
[facility] Pt served with copy of 96 [facility] by this RN and security. Pt alert, able to state her name and . Pt stated that she knew what a [facility] was. Pt stated that she had not been admitted to [facility] before.
[2024-03-08 23:59] VITALS: BP 137/95; PULSE 120; RESP 20; TEMP 36.6; O2SAT 97
[2024-03-09 00:20] VITALS: BP 127/86; PULSE 98; RESP 16; O2SAT 98
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
--- NOTE | 2024-03-09 05:50 | PC.NURSE ---
BEHAVIORAL Pt arrived to NPU by wheelchair at 0015 on a 96 hour hold. When nursing staff took pt into the bathroom to do her skin assessment and have her dress into NPU scrubs pt began crying and laughing and breathing very heavily while also pulling at her hair. After a couple minutes pt was able to dress into NPU scrubs but still continued to yell/cry. Pts admission assessment was not competed due to pt not cooperating with answering questions. Pt was shown to her room and she continued to cry and laugh until she eventually fell asleep. Pt is now observed resting in bed quietly with eyes closed. Behavioral monitoring continues.
[2024-03-09 06:00] VITALS: BP 121/89; PULSE 141; RESP 18; TEMP 36.9; O2SAT 100
[2024-03-09 09:09] VITALS: PULSE 96
[2024-03-09] MEDS: lamoTRIgine 100 mg Tablet 200 MG PO ×2 (10:50→17:21)
[2024-03-09] MEDS: OLANZapine 5 mg ODT PO (10:58)
[2024-03-09] MEDS: levETIRAcetam 500 mg Tablet 1500 MG PO (11:28)
[2024-03-09 14:00] VITALS: BP 94/59; PULSE 81; RESP 16; TEMP 36.8; O2SAT 97
--- NOTE | 2024-03-09 15:28 | PC.NURSE ---
PT HAS REPORTED HAVING A VAGUS NERVE STIMULATOR LOCATED IN HER UPPER LEFT CHEST/CLAVICLE AREA. MOTHER BROUGHT IN THE MAGNET THAT IS USED TO SWIPE OVER THE STIMULATOR AT THE ONSET OF SEIZURE ACTIVITY TO DECREASE SYMPTOMS. NEW ORDERS WERE RECEIVED BY DR. MCCLENDON, MAY USE MAGNET ON THE ONSET OF SEIZURE LIKE ACTIVITY NEEDED. SWIPE MAGNET OVER LEFT UPPER CHEST/CLAVICLE AREA AT THE ONSET OF SEIZURE LIKE ACTIVITY. MAY SWIPE EVERY MINUTE UP TO THREE TIMES IF NO IMPROVEMENT IS OBSERVED. NEUROLOGY NURSE TO NPU TO EDUCATE STAFF ON USE OF MAGNET. MAGNET IS HUNG BY [facility] FOR EASY ACCESS. NURSING STAFF EDUCATED ON USE OF MAGNET. PT EDUCATED ON ORDERS AND VERBALIZED UNDERSTANDING. SUPPORT VOICED.
[2024-03-09 22:00] VITALS: BP 100/60; PULSE 88; RESP 18; TEMP 36.9; O2SAT 98
[2024-03-10 06:00] VITALS: BP 106/70; PULSE 94; RESP 16; TEMP 36.6; O2SAT 98
[2024-03-10] MEDS: cetylpyridinium Lozenge 1 EACH MUCOUS MEM (06:26)
[2024-03-10] MEDS: lamoTRIgine 100 mg Tablet 200 MG PO ×2 (08:53→17:42)
[2024-03-10] MEDS: levETIRAcetam 500 mg Tablet 1500 MG PO (08:56)
--- NOTE | 2024-03-10 09:08 | PC.NURSE ---
IN ROOM, PT SPOKE WITH RN AT LENGTH ABOUT HER MOTHER AND HOW THE PT STATES SHE IS UNABLE TO REMEMBER WHAT HAPPENED. ALERT AND ORIENTATED THIS AM. DENIES PAIN. DENIES SI/HI AND AVH AT THIS TIME. RATES ANXIETY 12/09 AND DEPRESSION 11/09. STATES SHE SLEPT GREAT LAST NIGHT. GOAL FOR THE DAY IS TO STAY POSITIVE. ALL QUESTIONS AND SUPPORT VOICED.
[2024-03-10] MEDS: acetaminophen 325 mg Tablet 650 MG PO (09:31)
[2024-03-10] MEDS: docusate sodium 100 mg Capsule PO (09:31)
[2024-03-10 14:00] VITALS: BP 113/71; PULSE 70; RESP 14; TEMP 37.2; O2SAT 96
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
[2024-03-10 19:44] VITALS: BP 106/68; PULSE 83; RESP 15; TEMP 36.7; O2SAT 99
[2024-03-10] MEDS: ibuprofen 600 mg Tablet PO (20:49)
[2024-03-11 06:00] VITALS: BP 111/67; PULSE 90; RESP 15; TEMP 36.6; O2SAT 97
[2024-03-11] MEDS: lamoTRIgine 100 mg Tablet 200 MG PO ×2 (09:09→17:50)
[2024-03-11] MEDS: levETIRAcetam 500 mg Tablet 1500 MG PO (09:09)
[2024-03-11] MEDS: docusate sodium 100 mg Capsule PO (09:13)
[2024-03-11] MEDS: ibuprofen 600 mg Tablet PO (10:46)
[2024-03-11] MEDS: hyDROXYzine 25 mg Capsule 50 MG PO (11:09)
[2024-03-11 14:00] VITALS: BP 121/78; PULSE 76; RESP 16; TEMP 36.6; O2SAT 98
--- NOTE | 2024-03-11 15:00 | P.NPUPN_ITS ---
Subjective NPU 2 Subjective: Patient presented today reporting that she is feeling better. She reports that she thinks that the whole situation was probably related to her trauma response. She reports she has been in communication with her mom and that the plan is to return back home and that her uncle is not there anymore. We discussed the medication again and she agreed that making no changes is the appropriate intervention and that she will follow-up with outpatient providers to determine whether this is necessary once she gets past the situation. She also acknowledges that she had not been adherent to her medication in a way that is appropriate and so being reestablished on the medication first before making changes makes the most sense which we concurred. She denied any side effects to the medication. Mental Status Exam 2 MSE Comments: This is an obese white female looking younger than her stated age in hospital scrubs with limited grooming and eye contact.? No abnormal movements except for mild psychomotor retardation.? She was cooperative with exam in mild to moderate distress.? Speech was slightly decreased in rate and volume and normal prosody. Mood described as feeling much better, affect was congruent and brighter. Thought process linear, thought content: Patient denied suicidal or homicidal ideation, there were no delusions reported or noted, she denied auditory or visual hallucinations. Attention and concentration were intact and memory appeared mostly reliable, but none were formally tested.? She is alert and oriented x 3.? Insight and judgment limited, impulse control is limited versus impaired.? Vitals/I&O/Wt Last Vital Signs Temp 97.9 F 03/11/24 06:00 Pulse 90 03/11/24 06:00 Resp 15 03/11/24 06:00 BP 111/67 03/11/24 06:00 Pulse Ox 97 03/11/24 06:00 O2 Del Method Room Air 03/11/24 06:00 Data NPU 03/08/24 20:05 03/08/24 20:05 A&P Assessment and plan (1) Generalized anxiety disorder: (2) Borderline personality disorder: (3) Mood disorder: (4) Depressed mood: (5) Suicidal ideation: (6) Cannabis use disorder: Plan This is a 28-year-old white female with a long history of mental health challenges and strained family dynamics who presents who presents on a 96-hour hold with concerns for lethality. The patient is dealing with severe anxiety and depression, which have been exacerbated by her current psychosocial stressors and history of trauma. She has a history of self-injurious behavior and has expressed suicidal ideation. She also has a history of substance use disorder, specifically cannabis use. Her psychiatric conditions have significantly impacted her daily functioning and quality of life. 1.? Continue current medication will consider antianxiety antidepressants. 2.? Continue continue every 15 minute checks for safety. 3.? Encourage individual, group and milieu therapies on the unit. 4.? Encourage sober living treatment after discharge at the highest level of care to which she is willing to commit. 5. Tentative plan for discharge tomorrow. Involuntary Hold Information 2 96 Hour Hold: 96 Hour Involuntary Admission: Yes 96 Hour Hold Ending Date: 03/12/24 96 Hour Hold Ending Time: 22:05 Attestations NPU 2 Medical Necessity Statement*: Inpatient hospitalization is medically necessary and the clinically appropriate intervention at this time. We will monitor medication to make changes as indicated. Likely length of stay 1-3 days. Coding Level of Care Code Acute Code for [employer] Diagnoses Generalized anxiety disorder F41.1 Borderline personality disorder F60.3 Mood disorder F39 Depressed mood R45.89 Suicidal ideation R45.851 Cannabis use disorder F12.90
--- NOTE | 2024-03-11 17:18 | PC.NURSE ---
Patient's address is [facility] [place] [address]
[2024-03-11 20:16] VITALS: BP 121/82; PULSE 88; RESP 15; TEMP 36.4; O2SAT 99
[2024-03-12 06:00] VITALS: BP 111/74; PULSE 92; RESP 16; TEMP 37; O2SAT 99
[2024-03-12] MEDS: ibuprofen 600 mg Tablet PO (07:00)
[2024-03-12] MEDS: lamoTRIgine 100 mg Tablet 200 MG PO (08:32)
[2024-03-12] MEDS: levETIRAcetam 500 mg Tablet 1500 MG PO (08:32)
[2024-03-12] MEDS: hyDROXYzine 25 mg Capsule 50 MG PO (08:36)
[2024-03-12] MEDS: OLANZapine 5 mg ODT PO (10:07)
[2024-03-12] MEDS: docusate sodium 100 mg Capsule PO (10:07)
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
[2024-03-12 14:00] VITALS: BP 108/77; PULSE 74; RESP 16; TEMP 36.6; O2SAT 100
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
[2024-03-12 15:39] VITALS: BP 108/77; PULSE 74; RESP 16; TEMP 36.6; O2SAT 100
== END 2024-03-12 16:45 | disposition home or self-care (01) | DRG 880 ==
LOC: ER 22:53 → NP 23:56
PROVIDERS: Admitting Provider Psychiatry & Neurology Psychiatry; Emergency Provider Physician Assistant; PCP Nurse Practitioner Family; Visit Provider Psychiatry & Neurology Psychiatry
DX: F41.1 Generalized anxiety disorder (principal); R45.851 Suicidal ideations; G40.419 Other generalized epilepsy and epileptic syndromes, intractable, without status epilepticus; G60.9 Hereditary and idiopathic neuropathy, unspecified; F32.A Depression, unspecified; F12.90 Cannabis use, unspecified, uncomplicated; E66.9 Obesity, unspecified; F60.3 Borderline personality disorder; F39 Unspecified mood [affective] disorder; Z79.899 Other long term (current) drug therapy; Z96.82 Presence of neurostimulator; Z68.37 Body mass index [BMI] 37.0-37.9, adult; Z91.148 Patient's other noncompliance with medication regimen for other reason
CPT/HCPCS: 36415; 80053; 80306; 80307; 81025; 85025; 97150; 97165; 99285

== ENCOUNTER → 2024-05-04 12:39 | Outpatient (BNVA) | payer MEDICAID, SELFPAY | PROVIDERS: PCP Nurse Practitioner Family; Visit Provider Specialist | DX: G40.309 Generalized idiopathic epilepsy and epileptic syndromes, not intractable, without status epilepticus (principal); G40.A19 Absence epileptic syndrome, intractable, without status epilepticus; R29.90 Unspecified symptoms and signs involving the nervous system | CPT/HCPCS: 36415; 80175; 80177; 95971; 99214 ==

== ENCOUNTER → 2024-07-02 11:21 | Outpatient (BNVA) | payer MEDICAID, SELFPAY | PROVIDERS: PCP Nurse Practitioner Family; Visit Provider Specialist | DX: G40.A19 Absence epileptic syndrome, intractable, without status epilepticus (principal); R29.90 Unspecified symptoms and signs involving the nervous system; G40.309 Generalized idiopathic epilepsy and epileptic syndromes, not intractable, without status epilepticus | CPT/HCPCS: 95970; 99214 ==

== ENCOUNTER 2024-07-13 15:11 | Inpatient (IN) | payer MEDICAID, SELFPAY ==
[2024-07-13 15:16] VITALS: BP 134/84; PULSE 94; RESP 18; TEMP 36.8; O2SAT 97
--- NOTE | 2024-07-13 15:21 | W.ED.PSYCHS ---
HPI - Psych General: Chief Complaint: Psychiatric Symptoms Stated Complaint: mhe Time Seen by Provider: 07/13/24 15:14 Source: patient Mode of arrival: ambulatory Limitations: no limitations History of Present Illness: 28-year-old female who is here with suicidal ideations. She has a history of depression and said admissions in the past states she has been having suicidal thoughts for the last 3 to 4 weeks. She denies any worsening improving factors. Associated symptoms: Reports depression and suicidal ideation Related Data Home Medications ?Medication ?Instructions ?Recorded ?Confirmed doxycycline hyclate 100 mg capsule 100 mg PO BID 07/13/24 07/13/24 lamotrigine 200 mg tablet,extended 200 mg PO BID 07/13/24 07/13/24 release 24 hr (Lamictal XR) levetiracetam 750 mg 750 mg PO BID 07/13/24 07/13/24 tablet,extended release 24 hr lorazepam 2 mg/mL oral concentrate See Rx Instructions .Route .COMPLEX 07/13/24 07/13/24 Previous Rx's ?Medication ?Instructions ?Recorded olanzapine 5 mg disintegrating 5 mg PO DAILY PRN 06/28/24 tablet Agitation/Psychosis 15 days #15 tabs sertraline 50 mg tablet 50 mg PO BID #60 tabs 06/28/24 Allergies Allergy/AdvReac Type Severity Reaction Status Date / Time danielle Allergy Mild ALGY-Conges Verified 07/13/24 12:50 suzan cat dander Allergy Unknown Verified 07/13/24 12:50 dog dander Allergy Unknown Verified 07/13/24 12:50 latex Allergy ALGY-Rash Verified 07/13/24 12:50 mold Allergy Unknown Verified 07/13/24 12:50 adhesive tape AdvReac Severe Unknown Verified 07/13/24 12:50 prednisone AdvReac Intermediate Shaky & Verified 07/13/24 12:50 abd pain Review of Systems Const: Denies: fever(s), chills, body aches or change in appetite ENMT: Denies: throat pain or dental pain Card: Denies: chest pain Resp: Denies: dyspnea GI: Denies: abdominal pain, nausea, vomiting or diarrhea Musc: Denies: neck pain or back pain Skin/Breast: Denies: rash Neuro: Denies: headache(s) Psych: Reports: depression and suicidal ideation PFS ED PFSH: Medical History Generalized epilepsy, intractable Anxiety Hereditary and idiopathic neuropathy Depressed mood Mood disorder Psychiatric care Surgical History History of eye surgery Status post placement of VNS (vagus nerve stimulation) device Family History Other Diabetes Denies family history of Cervical cancer Ovarian cancer Breast cancer Hypertension Uterine cancer Stroke Social History Smoking and tobacco/nicotine status: never used tobacco/nicotine Physical Exam Const: COMMON NORMALS: no acute distress, patient oriented x3 and healthy appearing HENMT: COMMON NORMALS: normocephalic and atraumatic HEAD & SCALP: normocephalic and atraumatic Eye: COMMON NORMALS: conjunctivae normal CONJUNCTIVA: Yes conjunctivae normal Neck/C-Spine: COMMON NORMALS: full ROM and supple Chest: COMMONS NORMALS: normal inspection of the chest Resp: COMMON NORMALS: normal respiratory effort Cardio: COMMON NORMALS: regular rate, regular rhythm and No murmurs present (Cardio) RATE: regular rate RHYTHM: regular rhythm Extremity: COMMON NORMALS: normal to inspection and full ROM Neuro: COMMON NORMALS: patient oriented x3, moves all extremities and no focal motor deficits Psych: COMMON NORMALS: mental status grossly normal, Normal thought process present and cooperative MOOD & AFFECT: Yes depressed mood THOUGHT PROCESS: Normal thought process present Skin: COMMON NORMALS: no rashes or lesions noted and no wounds GENERAL SKIN EXAM: no rashes or lesions noted Course Vital Signs: Vital signs: Vital Signs Temperature 98.2 F 07/13/24 15:16 Pulse Rate 94 07/13/24 15:16 Respiratory Rate 18 07/13/24 15:16 Blood Pressure 134/84 07/13/24 15:16 Pulse Oximetry 97 07/13/24 15:16 MDM - Psych Medical Decision Making Patient presents here with suicidal ideation she is medically cleared she is septated to [facility] will admit there on a 96-hour hold. Medical Records I reviewed the patient's medical records. Lab Data I reviewed the patient's lab results. 07/13/24 15:52 07/13/24 15:52 Laboratory Results WBC 8.19 10^3/uL (3.29-11.43) 07/13/24 15:52 RBC 4.86 10^6/uL (3.85-5.65) 07/13/24 15:52 Hgb 14.80 g/dL (11.27-16.99) 07/13/24 15:52 Hct 45.6 % (36-47) 07/13/24 15:52 MCV 93.8 fl (85-98) 07/13/24 15:52 MCH 30.5 pg (27-33) 07/13/24 15:52 MCHC 32.5 g/dL (30-55) 07/13/24 15:52 RDW 11.9 % (12.1-15.1) L 07/13/24 15:52 Plt Count 213 10^3/cmm (157-399) 07/13/24 15:52 MPV 10.2 fL (7.4-10.4) 07/13/24 15:52 Neut % (Auto) 52.5 % 07/13/24 15:52 Lymph % (Auto) 41.9 % 07/13/24 15:52 [place] % (Auto) 4.5 % 07/13/24 15:52 Eos % (Auto) 0.4 % 07/13/24 15:52 Baso % (Auto) 0.5 % 07/13/24 15:52 Neut # (Auto) 4.30 10^3/uL (1.8-7.7) 07/13/24 15:52 Lymph # (Auto) 3.4 10^3/uL (0.8-4.8) 07/13/24 15:52 [place] # (Auto) 0.4 10^3/uL (0.2-0.9) 07/13/24 15:52 Eos # (Auto) 0.0 10^3/uL (0.0-0.8) 07/13/24 15:52 Baso # (Auto) 0.0 10^3/uL (0.0-0.1) 07/13/24 15:52 Nucleated RBC % (auto) 0 % 07/13/24 15:52 Nucleated RBCs # 0.0 /100WBC 07/13/24 15:52 Urine Opiates Screen Negative ng/mL (Negative) 07/13/24 15:35 Ur Barbiturates Screen Negative ng/mL (Negative) 07/13/24 15:35 Ur Phencyclidine Scrn Negative ng/mL (Negative) 07/13/24 15:35 Ur Amphetamines Screen Negative ng/mL (Negative) 07/13/24 15:35 U Benzodiazepines Scrn Negative ng/mL (Negative) 07/13/24 15:35 Urine Cocaine Screen Negative ng/mL (Negative) 07/13/24 15:35 U Marijuana (THC) Screen Negative ng/mL (Negative) 07/13/24 15:35 No radiology studies performed this visit Discharge Plan Discharge Patient Disposition: Admitted As Inpatient Clinical Impression: Suicidal ideation Condition: Stable Prescriptions: No Action sertraline 50 mg tablet 50 mg PO BID Qty: 60 0RF olanzapine 5 mg tablet,disintegrating 5 mg PO DAILY PRN (Reason: Agitation/Psychosis) 15 Days Qty: 15 0RF doxycycline hyclate 100 mg capsule 100 mg PO BID lorazepam 2 mg/mL concentrate See Rx Instructions .ROUTE .COMPLEX Rx Instructions: TAKE 1 ML AT ONSET OF SEIZURE. DO NOT EXCEED 2 DOSES PER DAY. levetiracetam 750 mg tablet extended release 24 hr 750 mg PO BID lamotrigine [Lamictal XR] 200 mg tablet extended release 24hr 200 mg PO BID Referrals: Aysha Suresh FNP [Primary Care Provider] - Print Language: Norwegian Coding Level of Care Code ED [place] Operator for James Wagner
[2024-07-13 15:58] LABS: Basophils % 0.5 %; Eosinophils % 0.4 %; Hematocrit 45.6 % (36-47); Lymphocytes # 3.4 10^3/uL (0.8-4.8); Lymphocytes % 41.9 %; Mean Corpuscular HGB Conc 32.5 g/dL (30-55); Mean Corpuscular Hemoglobin 30.5 pg (27-33); Mean Corpuscular Volume 93.8 fl (85-98); Mean Platelet Volume 10.2 fL (7.4-10.4); Monocytes # 0.4 10^3/uL (0.2-0.9); Monocytes % 4.5 %; Neutrophils % 52.5 %; Nucleated Red Blood Cells % 0 %; Platelet Count 213 10^3/cmm (157-399); Red Blood Count 4.86 10^6/uL (3.85-5.65); Red Cell Distribution Width 11.9 % (12.1-15.1); White Blood Count 8.19 10^3/uL (3.29-11.43)
[2024-07-13 16:06] LABS: Amphetamines Screen Urine Negative (Negative); Barbiturates Screen Urine Negative (Negative); Benzodiazepines Screen Urine Negative (Negative); Cocaine Screen Urine Negative (Negative); Opiate Screen Urine Negative (Negative); PCP Screen Urine Negative (Negative); THC Screen Urine Negative (Negative)
--- NOTE | 2024-07-13 16:07 | PC.NURSE ---
96 hr rights reviewed with pt @0030 with assistance of ELLIOT Linares. All education reviewed with patient at this time. No verbalized questions or concerns made by patient. Patient copy was left @bedside with pt. Pt provided 2 pudding cups. No further needs at this time.
[2024-07-13 16:13] LABS: Alanine Aminotransferase 17 U/L (0-33); Alkaline Phosphatase 110 U/L (35-105); Anion Gap 17.8 (5-19); Aspartate Amino Transferase 17 U/L (0-32); Blood Urea Nitrogen 20 mg/dL (6-20); Calcium 9.3 mg/dL (8.5-10.5); Carbon Dioxide 24 mmol/L (22-29); Chloride 100 mmol/L (98-107); Creatinine Clr Calc Pharmacy 91.7342; Globulin 3.5 g/dL (1.3-4.6); Glucose 107 mg/dL (65-115); Osmolality Calculated 289 mOsm/kg (285-295); Potassium 3.8 mmol/L (3.5-5.1); Sodium 138 mmol/L (136-145); Total Bilirubin 0.2 mg/dL (0.15-1.2); Total Protein 7.5 g/dL (6.6-8.7)
[2024-07-13 16:14] LABS: Acetaminophen < 5.0 ug/mL (10-30); Alcohol Level < 10 mg/dL (0-10); Salicylate < 0.3 mg/dL (3-10)
[2024-07-13 16:39] LABS: HCG Qualitative Urine. Negative (Negative)
[2024-07-13 17:44] VITALS: BP 118/83; PULSE 70; O2SAT 98
[2024-07-13 18:02] VITALS: BP 132/79; PULSE 81; RESP 17; TEMP 36.4; O2SAT 99
--- NOTE | 2024-07-13 19:32 | PC.NURSE ---
Admission assessment Patient came into the ED for increase in suicidal thoughts and depression since May. Patient reports that she has never attempted suicide but has considered it, with plan to overdose on medications. Patient has an increase in anxiety. Patient says that her anxiety and depression are so bad that she can't get off the couch. Patient lives on her own and feels isolated. During admission, patient denies suicidal thoughts, stating that the suicidal thoughts are not present when she is around others. Patient has been having seizures since she was a [age] years old. Patient's last seizure was a couple of weeks ago. Patient denies aura. Patient reports that she sef-harms by pulling her toenails off her great toes and by pulling out her eyelashes. The left great toenail has started to grow back. Doesn't appear to be infected. When she pulls her hair or toenails she feels like she in a trance.
[2024-07-13] MEDS: lamoTRIgine 100 mg Tablet 200 MG PO (21:01)
[2024-07-13] MEDS: levETIRAcetam 1,000 mg/10 mL UDC 750 MG PO (21:01)
[2024-07-13 22:00] VITALS: BP 104/65; PULSE 115; RESP 18; TEMP 36.6; O2SAT 99
[2024-07-14 06:00] VITALS: BP 106/70; PULSE 79; RESP 20; TEMP 36.3; O2SAT 99
[2024-07-14] MEDS: hyDROXYzine 25 mg Capsule 50 MG PO (07:01)
[2024-07-14] MEDS: ibuprofen 600 mg Tablet PO (08:01)
[2024-07-14] MEDS: sertraline 50 mg Tablet PO (09:06)
[2024-07-14] MEDS: lamoTRIgine 100 mg Tablet 200 MG PO ×2 (11:37→20:37)
[2024-07-14] MEDS: levETIRAcetam 500 mg Tablet 750 MG PO ×2 (11:37→20:37)
[2024-07-14 14:00] VITALS: BP 119/75; PULSE 81; RESP 17; TEMP 36.3; O2SAT 100
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
[2024-07-14 20:25] VITALS: BP 127/84; PULSE 80; RESP 18; TEMP 34.7; O2SAT 97
[2024-07-14] MEDS: CLONazepam 0.5 mg Tablet 0.25 MG PO (20:38)
[2024-07-14] MEDS: docusate sodium 100 mg Capsule 200 MG PO (22:33)
[2024-07-14] MEDS: magnesium hydroxide 30 mL UDC PO (22:33)
[2024-07-15 06:00] VITALS: BP 121/85; PULSE 84; RESP 18; O2SAT 97
[2024-07-15] MEDS: ibuprofen 600 mg Tablet PO ×2 (06:17→12:59)
[2024-07-15] MEDS: levETIRAcetam 500 mg Tablet 750 MG PO ×2 (08:20→20:42)
[2024-07-15] MEDS: lamoTRIgine 100 mg Tablet 200 MG PO ×2 (08:20→20:42)
[2024-07-15] MEDS: CLONazepam 0.5 mg Tablet 0.25 MG PO ×3 (08:20→20:44)
[2024-07-15] MEDS: sertraline 50 mg Tablet PO (08:21)
[2024-07-15 14:00] VITALS: BP 124/83; PULSE 82; RESP 16; TEMP 36.4; O2SAT 97
--- NOTE | 2024-07-15 16:09 | P.NPUPN_ITS ---
Subjective NPU 2 Subjective: 28-year-old female with borderline perso nality disorder, major depressive disorder, generalized anxiety disorder, and panic disorder along with treatment refractory seizure disorder admitted with suicidal ideation. The patient had reported worsening headaches with the Zoloft and requested a change in this medication. She had reported some reduction in anxiety with the initiation of Klonopin but reported 1 panic attack this morning. She reported no other side effects from her Klonopin given routinely here. She had reported that she continued to have suicidal thoughts. She reported that she would be interested in dialectical behavioral therapy for managing chronic self-injurious behavior and suicidal thoughts. She had endorsed struggles with managing chaos in her previous residence but stated that she now struggled with loneliness while living alone. She had stated that she was hopeful about moving to a larger city in order to get more services. She had reported difficulties with maintaining a job on a regular basis even though she had expressed great motivation and attempting to work. She had completed higher education and had been hopeful about starting a business in the future. Mental Status Exam 2 MSE Comments: This is an obese white female looking younger than her stated age in hospital scrubs with limited grooming and eye contact.? No abnormal movements except for mild psychomotor retardation.? She was cooperative with exam in mild to moderate distress.? Speech was slightly decreased in rate and volume and normal prosody. Her mood was described as depressed. Affect remained mood congruent and restricted. Thought process was linear, logical. Thought content: Patient endorsed suicidal ideation but no homicidal ideation. There were no delusions reported or noted. She denied auditory or visual hallucinations. She reports chronic suicidal thoughts, She reported experiencing severe panic attacks and anxiety, which sometimes manifest as physical symptoms such as shaking. She also reported having nightmares and flashbacks about traumatic events in her life. Attention and concentration were intact and memory appeared mostly reliable, but none were formally tested.? She is alert and oriented x 3.? Insight and judgment limited, impulse control is limited versus impaired.? Vitals/I&O/Wt Last Vital Signs Temp 97.6 F 07/15/24 14:00 Pulse 82 07/15/24 14:00 Resp 16 07/15/24 14:00 BP 124/83 07/15/24 14:00 Pulse Ox 97 07/15/24 14:00 O2 Del Method Room Air 07/15/24 14:00 Data NPU 07/13/24 15:52 07/13/24 15:52 A&P Assessment and plan (1) Dysthymia: (2) Panic disorder with agoraphobia: (3) MDD (major depressive disorder), recurrent episode: (4) Generalized anxiety disorder: (5) Borderline personality disorder: (6) Depressed mood: (7) Suicidal ideation: (8) Cannabis use disorder: Plan This is a 28-year-old white female with a long history of mental health challenges and strained family dynamics who presents who presents on a 96-hour hold with concerns for lethality with chronic suicidal ideation. She has a history of self-injurious behavior and has expressed chronic suicidal ideation. 1.? Increase klonopin .25mg tid, continue lamotrigine, keppra, taper zoloft and plan d/c of zoloft secondary to headaches and trial of paxil at 10mg po qhs for anxiety/depression/panic attacks 2.? Continue continue every 15 minute checks for safety. 3.? Encourage individual, group and milieu therapies on the unit. 4.? Encourage sober living treatment after discharge at the highest level of care to which she is willing to commit. PDMP PDMP Reviewed: Not Reviewed Involuntary Hold Information 2 96 Hour Hold: 96 Hour Involuntary Admission: Yes 96 Hour Hold Ending Date: 07/21/24 96 Hour Hold Ending Time: 15:39 Other Hold: Hold End Date: 07/21/24 Attestations NPU 2 Medical Necessity Statement*: Inpatient hospitalization is medically necessary and the clinically appropriate intervention at this time. We will monitor medication to make changes as indicated. Her likely length of stay 4-6 days. Coding Level of Care Code Acute Code for [facility] Fwd Diagnoses Dysthymia F34.1 Panic disorder with agoraphobia F40.01 MDD (major depressive disorder), recurrent episode F33.9 Generalized anxiety disorder F41.1 Borderline personality disorder F60.3 Depressed mood R45.89 Suicidal ideation R45.851 Cannabis use disorder F12.90
[2024-07-15] MEDS: docusate sodium 100 mg Capsule 200 MG PO (20:42)
[2024-07-15] MEDS: PARoxetine 20 mg Tablet 10 MG PO (20:43)
[2024-07-15] MEDS: acetaminophen 325 mg Tablet 650 MG PO (21:01)
[2024-07-15 21:02] VITALS: BP 128/72; PULSE 84; RESP 16; TEMP 36.6; O2SAT 99
[2024-07-16] MEDS: ibuprofen 600 mg Tablet PO ×2 (03:47→07:13)
[2024-07-16] MEDS: hyDROXYzine 25 mg Capsule 50 MG PO (03:47)
[2024-07-16 06:00] VITALS: BP 127/82; PULSE 118; RESP 19; TEMP 36.6; O2SAT 93
[2024-07-16] MEDS: acetaminophen 325 mg Tablet 650 MG PO (07:12)
[2024-07-16] MEDS: levETIRAcetam 500 mg Tablet 750 MG PO ×2 (07:14→20:47)
[2024-07-16] MEDS: sertraline 50 mg Tablet 25 MG PO (07:14)
[2024-07-16] MEDS: CLONazepam 0.5 mg Tablet 0.25 MG PO ×3 (07:17→20:45)
[2024-07-16] MEDS: lamoTRIgine 100 mg Tablet 200 MG PO ×2 (07:18→20:44)
[2024-07-16 14:00] VITALS: BP 123/65; PULSE 85; RESP 16; TEMP 36.9; O2SAT 96
--- NOTE | 2024-07-16 15:50 | W.PM.NPUPNS ---
Subjective NPU Subjective: 28-year-old female with borderline personality disorder, major depressive disorder, generalized anxiety disorder, and panic disorder along with treatment refractory seizure disorder admitted with suicidal ideation. The patient had continued to report having a headache today. She had reported a reduction in panic symptoms though. She had reported feeling more tired and fatigued today. She had reported that her mood had been better and reported that she was feeling more hopeful about the future. She had reported having no suicidal thoughts today. She had reported that she was thinking about moving to a larger city to help with receiving more intensive services particularly dialectical behavioral therapy. She was able to attend groups. Mental Status Exam MSE Comments: This is an obese white female looking younger than her stated age in hospital scrubs with improved grooming and improved eye contact.? No abnormal movements except for mild psychomotor retardation.? She was cooperative with exam in mild to moderate distress.? Speech was slightly decreased in rate and volume and normal prosody. Her mood was described as depressed but better. Affect remained restricted in range. Thought process was linear, logical. Thought content: Patient endorsed no suicidal ideation but no homicidal ideation. There were no delusions reported or noted. She denied auditory or visual hallucinations. She reports chronic suicidal thoughts, She reported experiencing severe panic attacks and anxiety, which sometimes manifest as physical symptoms such as shaking. She also reported having nightmares and flashbacks about traumatic events in her life. Attention and concentration were intact and memory appeared mostly reliable, but none were formally tested.? She is alert and oriented x 3.? Insight and judgment limited, impulse control is limited versus impaired.? Vitals/I&O/Wt Last Vital Signs Temp 98.5 F 07/16/24 14:00 Pulse 85 07/16/24 14:00 Resp 16 07/16/24 14:00 BP 123/65 07/16/24 14:00 Pulse Ox 96 07/16/24 14:00 O2 Del Method Room Air 07/16/24 14:00 Data NPU 07/13/24 15:52 07/13/24 15:52 A&P Assessment and plan (1) Dysthymia: (2) Panic disorder with agoraphobia: (3) MDD (major depressive disorder), recurrent episode: (4) Generalized anxiety disorder: (5) Borderline personality disorder: (6) Depressed mood: (7) Suicidal ideation: (8) Cannabis use disorder: Plan This is a 28-year-old white female with a long history of mental health challenges and strained family dynamics who presents who presents on a 96-hour hold with concerns for lethality with chronic suicidal ideation. She has a history of self-injurious behavior and has expressed chronic suicidal ideation. 1.? Continue klonopin .25mg tid, continue lamotrigine, keppra, D/C zoloft today and Continue paxil at 10mg po qhs for anxiety/depression/panic attacks 2.? Continue continue every 15 minute checks for safety. 3.? Encourage individual, group and milieu therapies on the unit. 4.? Encourage sober living treatment after discharge at the highest level of care to which she is willing to commit. PDMP PDMP Reviewed: Not Reviewed Involuntary Hold Information 96 Hour Hold: 96 Hour Involuntary Admission: Yes 96 Hour Hold Ending Date: 07/21/24 96 Hour Hold Ending Time: 15:39 Other Hold: Hold End Date: 07/21/24 Attestations NPU Medical Necessity Statement*: Inpatient hospitalization is medically necessary and the clinically appropriate intervention at this time. We will monitor medication to make changes as indicated. Her likely length of stay 2-3 days. Coding Level of Care Code Acute Code for [facility] Fwd Diagnoses Dysthymia F34.1 Panic disorder with agoraphobia F40.01 MDD (major depressive disorder), recurrent episode F33.9 Generalized anxiety disorder F41.1 Borderline personality disorder F60.3 Depressed mood R45.89 Suicidal ideation R45.851 Cannabis use disorder F12.90
[2024-07-16] MEDS: docusate sodium 100 mg Capsule 200 MG PO (20:43)
[2024-07-16] MEDS: PARoxetine 20 mg Tablet 10 MG PO (20:44)
[2024-07-16] MEDS: blistex lip oint 7 gm Tube 1 APPLIC TOPICAL (20:53)
[2024-07-16 21:59] VITALS: BP 106/77; PULSE 83; RESP 16; TEMP 36.9; O2SAT 98
--- NOTE | 2024-07-17 01:35 | PC.NURSE ---
this nurse assumed care of pt at 0100.
[2024-07-17] MEDS: acetaminophen 325 mg Tablet 650 MG PO (04:59)
[2024-07-17] MEDS: hyDROXYzine 25 mg Capsule 50 MG PO (05:00)
[2024-07-17 06:00] VITALS: BP 124/91; PULSE 106; RESP 18; TEMP 36.8; O2SAT 100
[2024-07-17] MEDS: lamoTRIgine 100 mg Tablet 200 MG PO (08:46)
[2024-07-17] MEDS: levETIRAcetam 500 mg Tablet 750 MG PO (08:46)
[2024-07-17] MEDS: CLONazepam 0.5 mg Tablet 0.25 MG PO (08:46)
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
[2024-07-17 10:53] VITALS: BP 124/91; PULSE 106; RESP 18; TEMP 36.8; O2SAT 100
== END 2024-07-17 12:09 | disposition home or self-care (01) | DRG 885 ==
LOC: ER 16:11 → NP 16:46
PROVIDERS: Admitting Provider Psychiatry & Neurology Psychiatry; Emergency Provider Emergency Medicine; PCP Nurse Practitioner Family; Visit Provider Psychiatry & Neurology Psychiatry
DX: F33.9 Major depressive disorder, recurrent, unspecified (principal); R45.851 Suicidal ideations; G40.419 Other generalized epilepsy and epileptic syndromes, intractable, without status epilepticus; F34.1 Dysthymic disorder; F40.01 Agoraphobia with panic disorder; F41.1 Generalized anxiety disorder; F60.3 Borderline personality disorder; F12.90 Cannabis use, unspecified, uncomplicated; E66.9 Obesity, unspecified; Z68.38 Body mass index [BMI] 38.0-38.9, adult; G60.9 Hereditary and idiopathic neuropathy, unspecified
CPT/HCPCS: 80053; 80306; 80307; 81025; 85025; 97150; 97165; 99285

== ENCOUNTER → 2024-08-04 11:33 | Outpatient (BNVA) | payer OTHER, SELFPAY | PROVIDERS: PCP Nurse Practitioner Family; Visit Provider Nurse Practitioner Psychiatric/Mental Health | DX: F60.3 Borderline personality disorder (principal); F41.1 Generalized anxiety disorder | CPT/HCPCS: 80061; 83036 ==

== ENCOUNTER → 2024-09-16 11:41 | Outpatient (BNVA) | payer MEDICAID, SELFPAY ==
[2024-08-06 11:37] VITALS: BP 124/79; BMI 39.1
== END ==
PROVIDERS: PCP Nurse Practitioner Family; Visit Provider Orthopaedic Surgery
DX: M79.642 Pain in left hand (principal); R20.0 Anesthesia of skin
CPT/HCPCS: 73130; 99214

== ENCOUNTER → 2024-10-28 09:37 | Outpatient (BNVA) | payer MEDICAID, SELFPAY ==
[2024-08-06 11:37] VITALS: BP 124/79; BMI 39.1
== END ==
PROVIDERS: PCP Nurse Practitioner Family; Referring Provider Orthopaedic Surgery; Visit Provider Specialist
DX: G56.03 Carpal tunnel syndrome, bilateral upper limbs (principal)
CPT/HCPCS: 95911

== ENCOUNTER → 2024-11-11 10:04 | Outpatient (BNVA) | payer MEDICAID, SELFPAY ==
[2024-08-06 11:37] VITALS: BP 124/79; BMI 39.1
== END ==
PROVIDERS: Visit Provider Orthopaedic Surgery
DX: M79.642 Pain in left hand (principal)
CPT/HCPCS: 99213

== ENCOUNTER 2024-11-11 15:23 | Emergency (ER) | payer MEDICAID, SELFPAY ==
[2024-08-06 11:37] VITALS: BP 124/79; BMI 39.1
[2024-11-11 15:32] VITALS: BP 122/78; PULSE 70; RESP 14; TEMP 36.4; O2SAT 98
--- NOTE | 2024-11-11 16:10 | ED_ITS ---
HPI - Headache General: Chief Complaint: Headache Stated Complaint: headache Time Seen by Provider: 11/11/24 16:07 Source: patient Mode of arrival: ambulatory Limitations: no limitations History of Present Illness: Patient is a 29-year-old female who presents to the ED with a worsening migraine. She reports a migraine since October 18 when she had a seizure. She has a history of epilepsy and had a grand mal seizure alone in her house where she reports she woke up laying prone and denied any obvious head trauma. She states this migraine feels like pressure in her head, which is different than her n ormal migraines which feel like a band around her head. She denies vomiting, recent sickness, any outside exposure, and has not had a seizure since October 18. She has a VNS implant. Sees Dr. Campos for her epilepsy. She has a history of epilepsy, migraines, borderline personality disorder, depression, anxiety. She is on Keppra, Lamictal, Paxil, lorazepam. She usually just takes Excedrin for her migraines, but has not been helping her current migraine. MD elicited complaint: migraine Pertinent past history: recent trauma (unwitnessed grand mal seizure 1 month ago) Onset (ago): month(s) Onset description: gradually Location: diffuse Severity: moderate Pain scale (0-10): 6 Quality & Timing: squeezing, pressure, progressively worsening and different than previous headaches Exacerbating factors: none Relieving factors: nothing Associated symptoms: Deny chest pain, confusion, fever(s), malaise, rash or vomiting Treatments prior to arrival: other (excedrin) Related Data Home Medications ?Medication ?Instructions ?Recorded ?Confirmed lorazepam 2 mg/mL oral concentrate See Rx Instructions .Route .COMPLEX 07/13/24 11/11/24 Previous Rx's ?Medication ?Instructions ?Recorded lamotrigine 200 mg tablet,extended 200 mg PO BID #60 t abs 07/30/24 release 24 hr (Lamictal XR) levetiracetam 750 mg 750 mg PO BID #60 tabs 07/30 tablet,extended release 24 hr lorazepam 1 mg tablet See Rx Instructions PO DAILY PRN 09/07/24 anxiety/insomnia #30 tabs paroxetine HCl 20 mg tablet 20 mg PO DAILY #30 tabs Allergies Allergy/AdvReac Type Severity Reaction Status Date / Time danielle Allergy Mild ALGY-Conges Verified 11/11/24 10:21 suzan cat dander Allergy Unknown Verified 11/11/24 10:21 dog dander Allergy Unknown Verified 11/11/24 10:21 latex Allergy ALGY-Rash Verified 11/11/24 10:21 mold Allergy Unknown Verified 11/11/24 10:21 adhesive tape AdvReac Severe Unknown Verified 11/11/24 10:21 prednisone AdvReac Intermediate Shaky & Verified 11/11/24 10:21 abd pain Review of Systems Const: Denies: fever(s), chills, body aches, fatigue or malaise Eyes: Denies: change in vision Card: Denies: chest pain Resp: Denies: dyspnea GI: Denies: abdominal pain or vomiting : Denies: urinary incontinence Musc: Denies: neck pain, back pain, extremity pain or joint swelling Skin/Breast: Denies: rash Neuro: Reports: headache(s); Denies: numbness in extremities, weakness in extremities, sensory changes, lack of coordination, difficulty walking, frequent falls, dizziness, confusion, behavioral changes or seizure-like activity PFSH ED PFSH: Medical History Generalized epilepsy, intractable Anxiety Hereditary and idiopathic neuropathy Depressed mood Mood disorder Psychiatric care Surgical History History of eye surgery Status post placement of VNS (vagus nerve stimulation) device Family History Other Diabetes Denies family history of Cervical cancer Ovarian cancer Breast cancer Hypertension Uterine cancer Stroke Social History Smoking and tobacco/nicotine status: never used tobacco/nicotine Second hand smoke exposure: Yes Alcohol intake: never Substance/Drug Use: never Adopted: No Caregiver/support person: Yes ([facility]) Lives independently: Yes Household members: none Housing: Apartment Marital status: Single Number of children: 0 Highest education level completed: Associate Degree: Academic Program Education level details: associates in general studies service: No Current occupational status: disabled Pets and animals: Yes (Peaches- male) Pets & animals: cat(s) Leisure activites: music, reading and other Leisure activities details: watch TV and play with cat Sexually active: No Do you think of yourself as: Straight/Heterosexual Current gender identity: Female Mili/Worship: [employer] Special mili needs: No Agree to transfusion: Yes Female Reproductive History: Para: 0 Physical Exam Const: COMMON NORMALS: no acute distress, average body habitus, patient oriented x3, no limitations, healthy appearing, alert and well nourished GENERAL APPEARANCE: cooperative ORIENTATION/CONSCIOUSNESS: Yes awake, Yes oriented to person, Yes oriented to place and Yes oriented to time HENMT: COMMON NORMALS: normocephalic and atraumatic HEAD & SCALP: normal to inspection, normocephalic and atraumatic FACE & SINUS: normal facial exam and face symmetric Eye: COMMON NORMALS: Equal, round and reactive pupils present and EOMs intact bilaterally GENERAL EYE: appearance normal, both eyes and all related structures and normal light reflex PUPIL: Yes Equal, round and reactive pupils present DIRECT OPHTHALMOSCOPY: Yes normal light reflex Neck/C-Spine: COMMON NORMALS: full ROM and no meningeal signs Resp: COMMON NORMALS: normal respiratory effort and clear to auscultation b ilaterally AUSCULTATION: clear to auscultation bilaterally Cardio: COMMON NORMALS: regular rate and regular rhythm RATE: regular rate RHYTHM: regular rhythm Extremity: GENERAL: Yes normal exam except as noted Neuro: MIKY COMA SCALE: document GCS findings [place] coma scale eye opening: Spontaneous [place] coma scale verbal response: Orientated [place] coma scale motor response: Obey commands Miky coma scale total score: 15 COMMON NORMALS: patient oriented x3, CN's II-XII intact bilaterally, moves all extremities, no focal motor deficits, no sensory deficits noted and gait normal SENSORIUM/ORIENTATION: Yes alert, Yes oriented to person, Yes oriented to place and Yes oriented to time MENINGEAL SIGNS: Yes no meningeal signs Skin: COMMON NORMALS: no rashes or lesions noted GENERAL SKIN EXAM: no rashes or lesions noted Course Vital Signs: Vital signs: Vital Signs Temperature 97.6 F 11/11/24 15:32 Pulse Rate 70 11/11/24 15:32 Respiratory Rate 14 11/11/24 15:32 Blood Pressure 122/78 11/11/24 15:32 Pulse Oximetry 98 11/11/24 15:32 MDM - Headache Medical Decision Making On re-examination patient is resting comfortably in NAD. She is rating her heada buzz now at a 3/10 down from a 6/10 and feels comfortable going home. Return precautions given. CT head today was unremarkable. Medical Records I reviewed the patient's medical records. Lab Data Radiology Impressions Head CT 11/11/24 16:29 IMPRESSION: No acute intracranial abnormality. All radiology interpretation(s) finalized by discharge Discharge Plan Discharge Patient Disposition: Home Clinical Impression: Headache, migraine Qualifiers: Migraine type: unspecified Status migrainosus presence: without status migrainosus Intractability: not intractable Qualified Code(s): G43.909 - Migraine, unspecified, not intractable, without status migrainosus Condition: Stable Prescriptions: No Action paroxetine HCl 20 mg tablet 20 mg PO DAILY Qty: 30 1RF Rx Instructions: Take one tablet daily lamotrigine [Lamictal XR] 200 mg tablet extended release 24hr 200 mg PO BID Qty: 60 5RF levetiracetam 750 mg tablet extended release 24 hr 750 mg PO BID Qty: 60 5RF lorazepam 1 mg tablet See Rx Instructions PO DAILY PRN (Reason: anxiety/insomnia) Qty: 30 2RF Rx Instructions: Take one-half to one tablet at bedtime, if needed for anxiety/insomnia lorazepam 2 mg/mL concentrate See Rx Instructions .ROUTE .COMPLEX Rx Instructions: TAKE 1 ML AT ONSET OF SEIZURE. DO NOT EXCEED 2 DOSES PER DAY. Discharge Orders: Discharge ED (Routine); Ordered 11/11/24 Ordered By: Beryl Daly Patient Instructions: Headache - Migraine (Adult) Print Language: Tuvaluan Coding Level of Care Code ED Crusher Operator for James Wagner
--- NOTE | 2024-11-11 16:29 | CTR_ITS ---
PROCEDURE INFORMATION: Exam: CT Head Without Contrast Exam date and time: 11/11/2024 5:13 PM Age: 29 years old Clinical indication: Pain; Headache; Migraine; Aura effect not specified TECHNIQUE: Imaging protocol: Computed tomography of the head without contrast. Radiation optimization: All CT scans at this facility use at least one of these dose optimization techniques: automated exposure control; mA and/or kV adjustment per patient size (includes targeted exams where dose is matched to clinical indication); or iterative reconstruction. COMPARISON: CT head wo con* [id number] 03/03/2024 8:54 AM RADIATION DOSE METRICS: Total DLP (mGy-cm): 1030.88 FINDINGS: Brain: Normal. No hemorrhage. Unremarkable white matter. No mass effect. Cerebral ventricles: No ventriculomegaly. Paranasal sinuses: Visualized sinuses are unremarkable. No fluid levels. Mastoid air cells: Visualized mastoid air cells are well aerated. Bones: Unremarkable. No acute fracture. Soft tissues: Unremarkable. CT/CT head wo con* [id number] IMPRESSION: No acute intracranial abnormality.
[2024-11-11] MEDS: ondansetron 2 mg/ML SDV 2 mL 4 MG IVP (17:30)
[2024-11-11] MEDS: diphenhydrAMINE 50 mg/mL SDV 1mL IVP (17:30)
[2024-11-11] MEDS: ketorolac 30 mg/mL INJ IVP (17:30)
[2024-11-11 18:18] VITALS: BP 120/83; PULSE 65; O2SAT 95
== END 2024-11-11 18:19 | disposition home or self-care (01) ==
PROVIDERS: Emergency Provider Physician Assistant
DX: G43.909 Migraine, unspecified, not intractable, without status migrainosus (principal); G40.419 Other generalized epilepsy and epileptic syndromes, intractable, without status epilepticus; F32.A Depression, unspecified; F41.9 Anxiety disorder, unspecified; Z79.899 Other long term (current) drug therapy; F60.3 Borderline personality disorder
CPT/HCPCS: 70450; 96374; 96375; 99285; J1200; J1885; J2405

== ENCOUNTER 2024-11-12 08:33 | Emergency (ER) | payer MEDICAID, SELFPAY ==
[2024-08-06 11:37] VITALS: BP 124/79; BMI 39.1
--- NOTE | 2024-11-12 08:34 | W.ED.HA ---
HPI - Headache General: Stated Complaint: headache Time Seen by Provider: 11/12/24 08:34 Related Data Home Medications ?Medication ?Instructions ?Recorded ?Confirmed lorazepam 2 mg/mL oral concentrate See Rx Instructions .Route .COMPLEX 07/13/24 11/11/24 Previous Rx's ?Medication ?Instructions ?Recorded lamotrigine 200 mg tablet,extended 200 mg PO BID #60 tabs 07/30/24 release 24 hr (Lamictal XR) levetiracetam 750 mg 750 mg PO BID #60 tabs 07/30/24 tablet,extended release 24 hr lorazepam 1 mg tablet See Rx Instructions PO DAILY PRN 09/07/24 anxiety/insomnia #30 tabs paroxetine HCl 20 mg tablet 20 mg PO DAILY #30 tabs 10/26/24 Allergies Allergy/AdvReac Type Severity Reaction Status Date / Time danielle Allergy Mild ALGY-Conges Verified 11/11/24 10:21 suzan cat dander Allergy Unknown Verified 11/11/24 10:21 dog dander Allergy Unknown Verified 11/11/24 10:21 latex Allergy ALGY-Rash Verified 11/11/24 10:21 mold Allergy Unknown Verified 11/11/24 10:21 adhesive tape AdvReac Severe Unknown Verified 11/11/24 10:21 prednisone AdvReac Intermediate Shaky & Verified 11/11/24 10:21 abd pain PFSH ED PFSH: Medical History Generalized epilepsy, intractable Anxiety Hereditary and idiopathic neuropathy Depressed mood Mood disorder Psychiatric care Surgical History History of eye surgery Status post placement of VNS (vagus nerve stimulation) device Family History Other Diabetes Denies family history of Cervical cancer Ovarian cancer Breast cancer Hypertension Uterine cancer Stroke Social History Smoking and tobacco/nicotine status: never used tobacco/nicotine Second hand smoke exposure: Yes Alcohol intake: never Substance/Drug Use: never Adopted: No Caregiver/support person: Yes ([facility]) Lives independently: Yes Household members: none Housing: Apartment Marital status: Single Number of children: 0 Highest education level completed: Associate Degree: Academic Program Education level details: associates in general studies service: No Current occupational status: disabled Pets and animals: Yes (Peaches- male) Pets & animals: cat(s) Leisure activites: music, reading and other Leisure activities details: watch TV and play with cat Sexually active: No Do you think of yourself as: Straight/Heterosexual Current gender identity: Female Mili/Mosque: Moravian Special mili needs: No Agree to transfusion: Yes Female Reproductive History: Para: 0 Discharge Plan Discharge Condition: Stable Prescriptions: No Action paroxetine HCl 20 mg tablet 20 mg PO DAILY Qty: 30 1RF Rx Instructions: Take one tablet daily lamotrigine [Lamictal XR] 200 mg tablet extended release 24hr 200 mg PO BID Qty: 60 5RF levetiracetam 750 mg tablet extended release 24 hr 750 mg PO BID Qty: 60 5RF lorazepam 1 mg tablet See Rx Instructions PO DAILY PRN (Reason: anxiety/insomnia) Qty: 30 2RF Rx Instructions: Take one-half to one tablet at bedtime, if needed for anxiety/insomnia lorazepam 2 mg/mL concentrate See Rx Instructions .ROUTE .COMPLEX Rx Instructions: TAKE 1 ML AT ONSET OF SEIZURE. DO NOT EXCEED 2 DOSES PER DAY. Print Language: Romansh Coding Level of Care Code ED Interventional Cardiologist for James aWgner
[2024-11-12 08:38] VITALS: BP 112/69; PULSE 83; RESP 17; TEMP 36.7; O2SAT 97; BMI 39.6
--- NOTE | 2024-11-12 09:08 | ED_ITS ---
HPI - Headache General: Chief Complaint: Headache Stated Complaint: headache Time Seen by Provider: 11/12/24 08:34 Source: patient Mode of arrival: EMS Limitations: no limitations History of Present Illness: Patient is a 29-year-old female presents to the ED today again with complaints of a headache. She was seen here yesterday by myself with complaints of a headache. Head CT was unremarkable. She was treated with IV medications including Benadryl, Zofran, Diphenhydramine. Upon arrival she had reported improvement of her headache and thus was allowed discharge. She said at that visit she had had a headache for a month now-following a grand mal seizure. She states she woke up this morning and her headache had returned and was worse . She rated it at an 8/10. Upon arrival to the emergency department she states she is now back down to a 2?3/10. She feels like it got better after her right arm began shaking. 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 History of significant borderline personality disorder among other psychiatric illnesses. She does have a history of epilepsy and sees Dr. Campos for this. Next upcoming appointment is scheduled for 11/25 with her. She gets her Lamictal/Keppra levels checked and they have never been elevated. Patient states she does have a history of headaches-normally treated with Excedrin. She is not running fevers. No visual changes. She is walking and articulating normally. MD elicited complaint: headache and migraine Pertinent past history: migraines Onset (ago): week(s) Severity: mild Pain scale (0-10): 3 Exacerbating factors: none Relieving factors: nothing Associated symptoms: Reports no associated symptoms; Deny confusion, fever(s), lightheadedness, nausea, pre-syncope, rash, syncope or vomiting Treatments prior to arrival: none Related Data Home Medications ?Medication ?Instructions ?Recorded ?Confirmed lorazepam 2 mg/mL oral concentrate See Rx Instructions .Route .COMPLEX 07/13/24 11/12/24 Previous Rx's ?Medication ?Instructions ?Recorded lamotrigine 200 mg tablet,extended 200 mg PO BID #60 t abs 07/30/24 release 24 hr (Lamictal XR) levetiracetam 750 mg 750 mg PO BID #60 tabs 07/30 tablet,extended release 24 hr lorazepam 1 mg tablet See Rx Instructions PO DAILY PRN 09/07/24 anxiety/insomnia #30 tabs paroxetine HCl 20 mg tablet 20 mg PO DAILY #30 tabs sumatriptan succinate 50 mg tablet See Rx Instructions PO .COMPLEX 11/12/24 #14 tabs Allergies Allergy/AdvReac Type Severity Reaction Status Date / Time danielle Allergy Mild ALGY-Conges Verified 11/11/24 10:21 suzan cat dander Allergy Unknown Verified 11/11/24 10:21 dog dander Allergy Unknown Verified 11/11/24 10:21 latex Allergy ALGY-Rash Verified 11/11/24 10:21 mold Allergy Unknown Verified 11/11/24 10:21 adhesive tape AdvReac Severe Unknown Verified 11/11/24 10:21 prednisone AdvReac Intermediate Shaky & Verified 11/11/24 10:21 abd pain Review of Systems Const: Denies: fever(s), chills or body aches Eyes: Denies: change in vision or blurry vision Card: Denies: lightheadedness, syncope or pre-syncope GI: Denies: nausea or vomiting Musc: Denies: neck pain Skin/Breast: Denies: rash Neuro: Reports: headache(s); Denies: numbness in extremities, weakness in extremities, sensory changes, lack of coordination, difficulty walking, frequent falls, dizziness, confusion, Slurred speech present or difficulty communicating thoughts PFSH ED PFSH: Medical History Generalized epilepsy, intractable Anxiety Hereditary and idiopathic neuropathy Depressed mood Mood disorder Psychiatric care Surgical History History of eye surgery Status post placement of VNS (vagus nerve stimulation) device Family History Other Diabetes Denies family history of Cervical cancer Ovarian cancer Breast cancer Hypertension Uterine cancer Stroke Social History Smoking and tobacco/nicotine status: never used tobacco/nicotine Second hand smoke exposure: Yes Alcohol intake: never Substance/Drug Use: never Adopted: No Caregiver/support person: Yes ([facility]) Lives independently: Yes Household members: none Housing: Apartment Marital status: Single Number of children: 0 Highest education level completed: Associate Degree: Academic Program Education level details: associates in general studies service: No Current occupational status: disabled Pets and animals: Yes (Peaches- male) Pets & animals: cat(s) Leisure activites: music, reading and other Leisure activities details: watch TV and play with cat Sexually active: No Do you think of yourself as: Straight/Heterosexual Current gender identity: Female Mili/Scientologist: Orthodox Special mili needs: No Agree to transfusion: Yes Female Reproductive History: Para: 0 Physical Exam Const: COMMON NORMALS: no acute distress, patient oriented x3, no limitations, alert and well nourished GENERAL APPEARANCE: cooperative NUTRITIONAL APPEARANCE: obese ORIENTATION/CONSCIOUSNESS: Yes awake, Yes oriented to person, Yes oriented to place and Yes oriented to time HENMT: COMMON NORMALS: normocephalic and atraumatic HEAD & SCALP: normal to inspection, normocephalic and atraumatic FACE & SINUS: normal facial exam and face symmetric Eye: COMMON NORMALS: Equal, round and reactive pupils present and EOMs intact bilaterally GENERAL EYE: appearance normal, both eyes and all related structures and normal light reflex PUPIL: Yes Equal, round and reactive pupils present DIRECT OPHTHALMOSCOPY: Yes normal light reflex Neck/C-Spine: COMMON NORMALS: no lymphadenopathy and no meningeal signs GENERAL: Yes normal visual inspection Resp: COMMON NORMALS: normal respiratory effort and clear to auscultation bilaterally AUSCULTATION: clear to auscultation bilaterally Cardio: COMMON NORMALS: regular rate and regular rhythm RATE: regular rate RHYTHM: regular rhythm Extremity: GENERAL: Yes normal exam except as noted Neuro: MIKY COMA SCALE: document GCS findings Miky coma scale eye opening: Spontaneous [place] coma scale verbal response: Orientated Miky coma scale motor response: Obey commands Miky coma scale total score: 15 COMMON NORMALS: patient oriented x3, CN's II-XII intact bilaterally, moves all extremities, no focal motor deficits, no sensory deficits noted and gait normal SENSORIUM/ORIENTATION: Yes alert, Yes oriented to person, Yes oriented to place and Yes oriented to time MENINGEAL SIGNS: Yes no meningeal signs Skin: COMMON NORMALS: no rashes or lesions noted GENERAL SKIN EXAM: no rashes or lesions noted Course Vital Signs: Vital signs: Vital Signs Temperature 98.1 F 11/12/24 08:38 Pulse Rate 63 11/12/24 09:38 Respiratory Rate 18 11/12/24 09:38 Blood Pressure 112/69 11/12/24 09:38 Pulse Oximetry 98 11/12/24 09:38 Oxygen Delivery Me thod Room Air 11/12/24 08:38 MDM - Headache Medical Decision Making Patient was given IV Reglan/DHE. Upon re-examination, patient tells me her headache has fully alleviated and is now having absolutely no discomfort. She is requesting discharge. Give her prescription medication she can try at home. Tried to get her a sooner appointment through her neurologist but could not so recommend she follows up with them on 11/25. Differential Diagnosis Likely migraine, tension headache and headache Medical Records I reviewed the patient's medical records. No radiology studies performed this visit Discharge Plan Discharge Patient Disposition: Home Clinical Impression: Headache, migraine Qualifiers: Migraine type: unspecified Status migrainosus presence: without status migrainosus Intractability: not intractable Qualified Code(s): G43.909 - Migraine, unspecified, not intractable, without status migrainosus Condition: Stable Prescriptions: New sumatriptan succinate 50 mg tablet See Rx Instructions .ROUTE .COMPLEX Qty: 14 0RF Rx Instructions: take 1 tab at onset of headache; if no relief may repeat 1 tab after at least 2 hrs; max = 4 tabs/24 hr No Action paroxetine HCl 20 mg tablet 20 mg PO DAILY Qty: 30 1RF lamotrigine [Lamictal XR] 200 mg tablet extended release 24hr 200 mg PO BID Qty: 60 5RF levetiracetam 750 mg tablet extended release 24 hr 750 mg PO BID Qty: 60 5RF lorazepam 1 mg tablet See Rx Instructions PO DAILY PRN (Reason: anxiety/insomnia) Qty: 30 2RF Rx Instructions: Take one-half to one tablet at bedtime, if needed for anxiety/insomnia lorazepam 2 mg/mL concentrate See Rx Instructions .ROUTE .COMPLEX Rx Instructions: TAKE 1 ML AT ONSET OF SEIZURE. DO NOT EXCEED 2 DOSES PER DAY. Discharge Orders: Discharge ED (Routine); Ordered 11/12/24 Ordered By: Beryl Daly Patient Instructions: Headache - Migraine (Adult) Activity Restrictions/Additional Instructions: DO NOT USE YOUR NEW PRESCRIPTION MEDICATION TODAY YOU WERE GIVEN A MEDICATION HERE IN ED THROUGH YOUR IV THAT YOU CANNOT TAKE WITH THE SUMATRIPTAN WITHIN A 24 HOUR TIME FRAME. You are okay to start this medication (if needed) tomorrow. Limit use of new prescription medication to less than 10 days per month to avoid medication-overuse headache. We tried to get you a sooner appointment with Dr. Campos but could not so please keep your current appointment on 11/25. Print Language: Surinamese Coding Level of Care Code ED [employer] Assistant Manager for James Wagner
[2024-11-12] MEDS: metoclopramide 5 mg/mL SDV 2 mL 10 MG IVP (09:36)
[2024-11-12 09:38] VITALS: BP 112/69; PULSE 63; RESP 18; O2SAT 98
[2024-11-12] MEDS: dihydroergotamine 1 mg/mL Inj IVP (09:45)
--- NOTE | 2024-11-12 10:15 | PC.PHAR ---
Pt states she took her medications yesterday 11/11/24 but Lamotrigine xr 200mg , Levetiracetam 750mg, and Paroxetine 20mg are a couple months over due. Tried to talk to me while using the phone several times.
== END 2024-11-12 10:31 | disposition home or self-care (01) ==
PROVIDERS: Emergency Provider Physician Assistant
DX: G43.909 Migraine, unspecified, not intractable, without status migrainosus (principal)
CPT/HCPCS: 96374; 96375; 99284; J1110; J2765

== ENCOUNTER 2024-11-12 11:15 | Emergency (ER) | payer MEDICAID, SELFPAY ==
[2024-08-06 11:37] VITALS: BP 124/79; BMI 39.1
[2024-11-12 11:39] VITALS: BP 136/80; PULSE 110; RESP 18; TEMP 36.7; O2SAT 97
--- NOTE | 2024-11-12 11:45 | PC.PHAR ---
Med rec done earlier this morning. Just verified all medications from earlier notes.
--- NOTE | 2024-11-12 12:08 | ED_ITS ---
HPI - Headache 2 General: Chief Complaint: Headache Stated Complaint: seizure Time Seen by Provider: 11/12/24 11:40 History of Present Illness: 29-year-old female with a history of sei zure disorder, anxiety, idiopathic neuropathy, depression, borderline personality disorder who presents to the emergency room for the second time this morning with headache and a possible seizure. She follows with neurology for her seizure disorder and her headaches. She was treated with DHEA this morning and of regular cocktail yesterday. She had a normal head CT yesterday. After she left the emergency room today mom reports she had a tonic-clonic seizure before leaving got to the stoplight. Upon my evaluation she is somewhat agitated but alert and complaining of a headache. She just tells me her mom dropped her off. She does not know why. Related Data Home Medications ?Medication ?Instructions ?Recorded ?Confirmed lorazepam 2 mg/mL oral concentrate See Rx Instructions .Route .COMPLEX 07/13/24 11/12/24 Previous Rx's ?Medication ?Instructions ?Recorded lamotrigine 200 mg tablet,extended 200 mg PO BID #60 t abs 07/30/24 release 24 hr (Lamictal XR) levetiracetam 750 mg 750 mg PO BID #60 tabs 07/30 tablet,extended release 24 hr lorazepam 1 mg tablet See Rx Instructions PO DAILY PRN 09/07/24 anxiety/insomnia #30 tabs paroxetine HCl 20 mg tablet 20 mg PO DAILY #30 tabs cephalexin 500 mg capsule 500 mg PO TID 5 days #15 cap s 11/12/24 dexamethasone 6 mg tablet 6 mg PO DAILY 5 days #5 tabs 11/12/24 sumatriptan succinate 50 mg tablet See Rx Instructions PO .COMPLEX 11/12/24 #14 tabs Allergies Allergy/AdvReac Type Severity Reaction Status Date / Time danielle Allergy Mild ALGY-Conges Verified 11/11/24 10:21 suzan cat dander Allergy Unknown Verified 11/11/24 10:21 dog dander Allergy Unknown Verified 11/11/24 10:21 latex Allergy ALGY-Rash Verified 11/11/24 10:21 mold Allergy Unknown Verified 11/11/24 10:21 adhesive tape AdvReac Severe Unknown Verified 11/11/24 10:21 prednisone AdvReac Intermediate Shaky & Verified 11/11/24 10:21 abd pain Review of Systems 2 Narrative: Constitutional symptoms: Negative except as documented in HPI. Skin symptoms: Negative except as documented in HPI. Eye symptoms: Negative except as documented in HPI. ENMT symptoms: Negative except as documented in HPI. Respiratory symptoms: Negative except as documented in HPI. Cardiovascular symptoms: Negative except as documented in HPI. Gastrointestinal symptoms: Negative except as documented in HPI. Genitourinary symptoms: Negative except as documented in HPI. Musculoskeletal symptoms: Negative except as documented in HPI. Neurologic symptoms: Negative except as documented in HPI. Psychiatric symptoms: Negative except as documented in HPI. Endocrine symptoms: Negative except as documented in HPI. PFSH ED 2 PFSH: Medical History Generalized epilepsy, intractable Anxiety Hereditary and idiopathic neuropathy Depressed mood Mood disorder Psychiatric care Surgical History History of eye surgery Status post placement of VNS (vagus nerve stimulation) device Family History Other Diabetes Denies family history of Cervical cancer Ovarian cancer Breast cancer Hypertension Uterine cancer Stroke Social History Smoking and tobacco/nicotine status: never used tobacco/nicotine Second hand smoke exposure: Yes Alcohol intake: never Substance/Drug Use: never Adopted: No Caregiver/support person: Yes ([facility]) Lives independently: Yes Household members: none Housing: Apartment Marital status: Single Number of children: 0 Highest education level completed: Associate Degree: Academic Program Education level details: associates in general studies service: No Current occupational status: disabled Pets and animals: Yes (Peaches- male) Pets & animals: cat(s) Leisure activites: music, reading and other Leisure activities details: watch TV and play with cat Sexually active: No Do you think of yourself as: Straight/Heterosexual Current gender identity: Female Mili/Presybeterian: Quaker Special mili needs: No Agree to transfusion: Yes Female Reproductive History: Para: 0 Physical Exam 2 Narrative: EXAM NARRATIVE: General: Alert, no acute distress. Skin: Warm, dry. Head: Normocephalic, atraumatic. Neck: Supple, trachea midline. Eye: Extraocular movements are intact. Ears, nose, mouth and throat: mucosa moist. Cardiovascular: Regular, Normal peripheral perfusion. Respiratory: Lungs are clear to auscultation, respirations are non-labored, breath sounds are equal, Symmetrical chest wall expansion. Gastrointestinal: Soft, Nontender, Non distended Musculoskeletal: Normal ROM, no deformity. Neurological: Alert and oriented, No focal neurological deficit observed. 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 Course 2 Vital Signs: Vital signs: Vital Signs Temperature 98.1 F 11/12/24 11:39 Pulse Rate 110 H 11/12/24 11:39 Respiratory Rate 18 11/12/24 11:39 Blood Pressure 136/80 11/12/24 11:39 Pulse Oximetry 97 11/12/24 11:39 Oxygen Delivery Me thod Room Air 11/12/24 11:39 MDM - Headache Medical Decision Making Medical decision making: Differential diagnosis for this patient with a complaint of seizure like activity would include but not be limited to, and based on the above HPI, review of systems and physical exam: seizure, DT's, alcohol withdrawal, brain malignancy, pseudo-seizure, syncope. Orders placed to evaluate differential diagnosis based on the above differential, HPI and physical exam Lab Review: Laboratory results were reviewed and interpreted by myself the emergency room physician No leukocytosis. No anemia. No renal failure. Lactic is normal. Patient does have a urinary tract infection with 15-20 whites in her urine and 1+ bacteria. This may be worsening her headache and seizure symptoms. I reviewed the patient's medical record. Reexamination: Patient is somewhat improved. Headache is better. She is a bit somnolent. No increased work of breathing Assessment and plan: Migraine headache Seizure Seizure disorder Urinary tract infection ?IV Rocephin - 50 mg IV Benadryl - 30 mg IV Toradol - 10 mg IV Reglan - 8 mg IV Zofran - 60 mg IV Norflex - 1 g Keppra - Discharged home - Discussed plan with patient. Answered any questions. - Evaluation and treatment of this problem were appropriate in the emergency setting. Lab Data 11/12/24 12:10 11/12/24 12:38 Laboratory Results WBC 10.69 10^3/uL (3.29-11.43) 11/12/24 12:10 RBC 4.90 10^6/uL (3.85-5.65) 11/12/24 12:10 Hgb 15.20 g/dL (11.27-16.99) 11/12/24 12:10 Hct 46.1 % (36-47) 11/12/24 12:10 MCV 94.1 fl (85-98) 11/12/24 12:10 MCH 31.0 pg (27-33) 11/12/24 12:10 MCHC 33.0 g/dL (30-55) 11/12/24 12:10 RDW 15.3 % (12.1-15.1) H 11/12/24 12:10 Plt Count 181 10^3/cmm (157-399) 11/12/24 12:10 MPV 10.7 fL (7.4-10.4) H 11/12/24 12:10 Neut % (Auto) 79.5 % 11/12/24 12:10 Lymph % (Auto) 15.2 % 11/12/24 12:10 [place] % (Auto) 4.4 % 11/12/24 12:10 Eos % (Auto) 0.2 % 11/12/24 12:10 Baso % (Auto) 0.5 % 11/12/24 12:10 Neut # (Auto) 8.51 10^3/uL (1.8-7.7) H 11/12/24 12:10 Lymph # (Auto) 1.6 10^3/uL (0.8-4.8) 11/12/24 12:10 [place] # (Auto) 0.5 10^3/uL (0.2-0.9) 11/12/24 12:10 Eos # (Auto) 0.0 10^3/uL (0.0-0.8) 11/12/24 12:10 Baso # (Auto) 0.1 10^3/uL (0.0-0.1) 11/12/24 12:10 Nucleated RBC % (auto) 0 % 11/12/24 12:10 Nucleated RBCs # 0.0 /100WBC 11/12/24 12:10 Sodium 138 mmol/L (136-145) 11/12/24 12:38 Potassium 3.7 mmol/L (3.5-5.1) 11/12/24 12:38 Chloride 102 mmol/L (98-107) 11/12/24 12:38 Carbon Dioxide 21 mmol/L (22-29) L 11/12/24 12:38 Anion Gap 18.7 (5-19) 11/12/24 12:38 BUN 19 mg/dL (6-20) 11/12/24 12:38 Creatinine 1.0 mg/dL (0.5-0.9) H 11/12/24 12:38 GFR Calculation 66.5 mL/min (90-130) L 11/12/24 12:38 Glucose 101 mg/dL (65-115) 11/12/24 12:38 Calculated Osmolality 288 mOsm/kg (285-295) 11/12/24 12:38 Lactic Acid 2.1 mmol/L (0.5-2.2) 11/12/24 12:38 Calcium 9.5 mg/dL (8.5-10.5) 11/12/24 12:38 Total Bilirubin 0.4 mg/dL (0.15-1.2) 11/12/24 12:38 AST 18 U/L (0-32) 11/12/24 12:38 ALT 15 U/L (0-33) 11/12/24 12:38 Alkaline Phosphatase 92 U/L (35-105) 11/12/24 12:38 C-Reactive Protein Cancelled 11/12/24 12:10 Total Protein 8.1 g/dL (6.6-8.7) 11/12/24 12:38 Albumin 4.4 g/dL (3.5-5.2) 11/12/24 12:38 Globulin 3.7 g/dL (1.3-4.6) 11/12/24 12:38 HCG, Qual Negative (Negative) 11/12/24 12:38 Urine Color Yellow (Yellow) 11/12/24 13:05 Urine Appearance Clear (CLEAR) 11/12/24 13:05 Urine pH 7.5 (5-7) 11/12/24 13:05 Ur Specific [place] 1.017 (1.005-1.030) 11/12/24 13:05 Urine Protein Trace (Negative) A 11/12/24 13:05 Urine Glucose (UA) Negative (Normal) 11/12/24 13:05 Urine Ketones 1+ (Negative) H 11/12/24 13:05 Urine Blood Negative (Negative) 11/12/24 13:05 Urine Nitrate Negative (Negative) 11/12/24 13:05 Urine Bilirubin Negative (Negative) 11/12/24 13:05 Urine Urobilinogen 1.0 mg/dL (Negative) 11/12/24 13:05 Ur Leukocyte Esterase 3+ (Negative) A 11/12/24 13:05 Urine RBC 0-2 /hpf (0-2) 11/12/24 13:05 Urine WBC 11-20 /hpf (0-5) H 11/12/24 13:05 Ur Squamous Epith Cells 0-5 /hpf (0-5) 11/12/24 13:05 Amorphous Sediment Not Reportable 11/12/24 13:05 Urine Bacteria 1+ /hpf (NONE) H 11/12/24 13:05 Hyaline Casts 2.05 /lpf 11/12/24 13:05 Urine Opiates Screen Negative ng/mL (Negative) 11/12/24 13:05 Ur Barbiturates Screen Negative ng/mL (Negative) 11/12/24 13:05 Ur Phencyclidine Scrn Negative ng/mL (Negative) 11/12/24 13:05 Ur Amphetamines Screen Negative ng/mL (Negative) 11/12/24 13:05 U Benzodiazepines Scrn Positive ng/mL (Negative) H 11/12/24 13:05 Urine Cocaine Screen Negative ng/mL (Negative) 11/12/24 13:05 U Marijuana (THC) Screen Negative ng/mL (Negative) 11/12/24 13:05 Influenza A (PCR) Negative (Negative) 11/12/24 12:02 Influenza Type B (PCR) Negative (Negative) 11/12/24 12:02 RSV (PCR) Negative (Negative) 11/12/24 12:02 SARS-CoV-2 (PCR) Negative (Negative) 11/12/24 12:02 All radiology interpretation(s) finalized by discharge Discharge Plan Discharge Patient Disposition: Home Clinical Impression: Seizure, Migraine, UTI (urinary tract infection) Condition: Stable Prescriptions: New dexamethasone 6 mg tablet 6 mg PO DAILY 5 Days Qty: 5 0RF cephalexin 500 mg capsule 500 mg PO TID 5 Days Qty: 15 0RF No Action paroxetine HCl 20 mg tablet 20 mg PO DAILY Qty: 30 1RF lamotrigine [Lamictal XR] 200 mg tablet extended release 24hr 200 mg PO BID Qty: 60 5RF levetiracetam 750 mg tablet extended release 24 hr 750 mg PO BID Qty: 60 5RF lorazepam 1 mg tablet See Rx Instructions PO DAILY PRN (Reason: anxiety/insomnia) Qty: 30 2RF Rx Instructions: Take one-half to one tablet at bedtime, if needed for anxiety/insomnia lorazepam 2 mg/mL concentrate See Rx Instructions .ROUTE .COMPLEX Rx Instructions: TAKE 1 ML AT ONSET OF SEIZURE. DO NOT EXCEED 2 DOSES PER DAY. sumatriptan succinate 50 mg tablet See Rx Instructions .ROUTE .COMPLEX Qty: 14 0RF Rx Instructions: take 1 tab at onset of headache; if no relief may repeat 1 tab after at least 2 hrs; max = 4 tabs/24 hr Discharge Orders: Discharge ED (Routine); Ordered 11/12/24 Ordered By: Vicenta Dunbar Discharge Diet: Usual diet Discharge Activity: Increase activity as tolerated Patient Instructions: Opioid Safety, Pain Management Activity Restrictions/Additional Instructions: Thank you for choosing [facility] for your healthcare needs today. You have been screened and evaluated and felt safe for discharge. Health conditions do change or evolve sometimes and as such it is important that you follow up with your Primary Doctor to be re checked, 3-5 days is a general good time frame for follow up. You are always welcome to return to the ED for re assessment if your symptoms are worsening or you have new concerns Print Language: Latvian Coding Level of Care Code ED Case Picker for James Wagner
[2024-11-12 12:17] LABS: Basophils # 0.1 10^3/uL (0.0-0.1); Basophils % 0.5 %; Eosinophils % 0.2 %; Hematocrit 46.1 % (36-47); Lymphocytes # 1.6 10^3/uL (0.8-4.8); Lymphocytes % 15.2 %; Mean Corpuscular Volume 94.1 fl (85-98); Mean Platelet Volume 10.7 fL (7.4-10.4); Monocytes # 0.5 10^3/uL (0.2-0.9); Monocytes % 4.4 %; Neutrophils # 8.51 10^3/uL (1.8-7.7); Neutrophils % 79.5 %; Nucleated Red Blood Cells % 0 %; Platelet Count 181 10^3/cmm (157-399); Red Cell Distribution Width 15.3 % (12.1-15.1); White Blood Count 10.69 10^3/uL (3.29-11.43)
[2024-11-12] MEDS: dexamethasone 10 mg/mL INJ IVP (12:41)
[2024-11-12] MEDS: diphenhydrAMINE 50 mg/mL SDV 1mL IVP (12:41)
[2024-11-12] MEDS: metoclopramide 5 mg/mL SDV 2 mL 10 MG IVP (12:42)
[2024-11-12] MEDS: levETIRAcetam 1,000 MG/100 ML PREMIX 400 MG IV (12:42)
[2024-11-12] MEDS: orphenadrine 30 mg/mL Inj 2 mL 60 MG IVP (12:42)
[2024-11-12] MEDS: ketorolac 30 mg/mL INJ IVP (12:42)
[2024-11-12] MEDS: ondansetron 2 mg/ML SDV 2 mL 4 MG IVP (12:42)
[2024-11-12 12:46] LABS: Influenza A NEGATIVE (Negative); Influenza B NEGATIVE (Negative); Respiratory Syncytial Virus Ce NEGATIVE (Negative); SARS-CoV-2 PCR NEGATIVE (Negative)
[2024-11-12 12:56] LABS: HCG, Serum Qual Negative (Negative)
[2024-11-12 13:02] LABS: Alanine Aminotransferase 15 U/L (0-33); Albumin Level 4.4 g/dL (3.5-5.2); Alkaline Phosphatase 92 U/L (35-105); Anion Gap 18.7 (5-19); Aspartate Amino Transferase 18 U/L (0-32); Blood Urea Nitrogen 19 mg/dL (6-20); Calcium 9.5 mg/dL (8.5-10.5); Carbon Dioxide 21 mmol/L (22-29); Chloride 102 mmol/L (98-107); Globulin 3.7 g/dL (1.3-4.6); Glomerular Filtration Rate 66.5 mL/min (90-130); Glucose 101 mg/dL (65-115); Osmolality Calculated 288 mOsm/kg (285-295); Potassium 3.7 mmol/L (3.5-5.1); Sodium 138 mmol/L (136-145); Total Bilirubin 0.4 mg/dL (0.15-1.2); Total Protein 8.1 g/dL (6.6-8.7)
[2024-11-12 13:03] LABS: Lactic Sepsis W/Reflex 2.1 mmol/L (0.5-2.2)
[2024-11-12 13:07] LABS: Reflex Lactate Order REFLEX LACTIC ORDERD
[2024-11-12 13:21] LABS: Bilirubin Urine Negative (Negative); Blood Urine Negative (Negative); Glucose Urine UA Negative (Normal); Ketones Urine 1+ (Negative); Leukocyte Esterase Urine 3+ (Negative); Nitrate Urine Negative (Negative); Protein Urine Trace (Negative); Specific Gravity, Urine 1.017 (1.005-1.030); Urine Appearance Clear (CLEAR); Urine Color Yellow (Yellow); pH Urine 7.5 (5-7)
[2024-11-12 13:26] LABS: Add Urine Culture? Yes; Bacteria Urine 1+ /hpf; Hyaline Casts Urine 2.05 /lpf; RBC Urine 0-2 /hpf (0-2); Squamous Epithelial Cell Urine 0-5 /hpf (0-5)
[2024-11-12 13:28] LABS: Amphetamines Screen Urine Negative (Negative); Barbiturates Screen Urine Negative (Negative); Benzodiazepines Screen Urine Positive (Negative); Cocaine Screen Urine Negative (Negative); Opiate Screen Urine Negative (Negative); PCP Screen Urine Negative (Negative); THC Screen Urine Negative (Negative)
[2024-11-12] MEDS: cefTRIAXone 1,000 mg SDV 1000 MG IVP (13:43)
[2024-11-12 13:51] VITALS: BP 113/59; PULSE 68; O2SAT 96
== END 2024-11-12 13:51 | disposition home or self-care (01) ==
PROVIDERS: Emergency Provider Emergency Medicine
DX: G40.419 Other generalized epilepsy and epileptic syndromes, intractable, without status epilepticus (principal); G43.909 Migraine, unspecified, not intractable, without status migrainosus; N39.0 Urinary tract infection, site not specified; F41.9 Anxiety disorder, unspecified; G62.9 Polyneuropathy, unspecified; F32.A Depression, unspecified; F60.3 Borderline personality disorder; Z79.899 Other long term (current) drug therapy; Z11.52 Encounter for screening for COVID-19
CPT/HCPCS: 80053; 80306; 81001; 83605; 84703; 85025; 86140; 87086; 87637; 96365; 96375; 99284; J0696; J1100; J1200; J1885; J1953; J2360; J2405; J2765

== ENCOUNTER → 2024-11-17 09:47 | Outpatient (BNVA) | payer MEDICAID, SELFPAY ==
[2024-08-06 11:37] VITALS: BP 124/79; BMI 39.1
== END ==
PROVIDERS: PCP Nurse Practitioner Family; Visit Provider Specialist
DX: Z96.89 Presence of other specified functional implants (principal)
CPT/HCPCS: 95970; 99215

== ENCOUNTER → 2024-12-16 11:28 | Outpatient (BNVA) | payer MEDICAID, SELFPAY ==
[2024-08-06 11:37] VITALS: BP 124/79; BMI 39.1
== END ==
PROVIDERS: Visit Provider Orthopaedic Surgery
DX: M79.642 Pain in left hand (principal)
CPT/HCPCS: 99213

== ENCOUNTER 2025-02-28 10:00 | Emergency (ER) | payer MEDICAID, SELFPAY ==
[2024-08-06 11:37] VITALS: BP 124/79; BMI 39.1
--- OUTSIDE RECORDS SUMMARY | 2025-02-28 10:06 | XMS_ITS | Patient Health Record ---
Author Organization [facility] Address [address] [place] [address] Care Team Providers Care Interlocking Tower Operator Name Role Phone Manuelito Osborn Primary Care Provider Allergies Allergen (clinical drug ingredient) Drug/Non Drug Allergy documented on EMR Reaction Allergy Type Onset Date Status Latex Latex rash Allergy Active prednisolone Prednisolone rash Drug Allergy A ctive Reason For Referral No Information Medications Medication SIG (Take, Route, Frequency, Duration) Notes Start Date End Date Status Zonisamide 100 MG Capsule 1 capsule Oral ly Twice a day Unknown PROzac 20 MG Capsule 1 capsule Orally On ce a day; Duration: 30 day(s) Unknown busPIRone HCl 5 MG Tablet 1 tablet Orall y Twice a day Unknown levETIRAcetam 500 MG Tablet 1 tablet Ora lly every 12 hrs Unknown Social History Tobacco Use: Social History Observation Description Date Details (start date - stop date) Never Smoker NA - NA Social History Depression Screening Social Info Question Answer Notes PHQ-9 Little interest or p avril in doing things More than half the days Feeling down, depressed, or hopeless More than h longterm the days Trouble falling or staying a sleep, or sleeping too much Several days Feeling tired or having little energy More than half the days Poor appetite or overeating More than half the d ays Feeling bad about yourself, or that you are a failure, or have let yourself or your family down More than half the days Trouble concentrating on thi ngs, such as reading the newspaper or watching television More than half the days Moving or speaking so slowly that other people could have noticed. Or the opposite ? being so fidgety or restless that you have been moving around a lot more than usual More than half the days Thoughts that you would be b luann off , or of hurting yourself in some way More than half the days (Consider Suicide Assessment Risk) Total Score 17 Interpretation Moderately severe depression Drugs/Alcohol: Social Info Question Answer Notes Alcohol Screen (Audit-C) Did you have a drink containing alcohol in the past year? No Points 0 Interpretation Negative Drugs Have you used drugs other than those for medical reasons in the past 12 months? No Tobacco Use: Social Info Question Answer Notes xTobacco Use/Smoking Are you a nonsmoker Additional Findings: Tobacco Non-User Current no n-smoker Tobacco use other than smoking: Are you an other tobac co user? No Problems Problem Type SNOMED Code ICD Code Onset Dates Problem Status W/U Status Risk Notes Problem Obesity (625633391) Mildly obese (E66.9) Active confirmed Problem Depressive disorder (disorder) (41506641) Depression, unspecified depression type (F32.9) Active confirmed Problem Seizure (33169587) Seizure (R56.9) Active confirmed Problem Bleeding after intercourse (03838156) Bleeding after intercourse (N93.0) Active confirmed Problem Body mass index 35.00 to 39.99 (554034691676477 ) Body mass index [BMI] 38.0-38.9, adult (Z68.38) Active confirmed Plan Of Treatment No Information Insurance Providers Payer Name Payer Address Payer Phone Subscriber Number Group Number Insured Name Patient Relationship to Insured Coverage Start Date Coverage End Date [place] Medicaid [address] [place] [id number] Johana Lehman Self - patient is the insured Medical (General) History Surgical History Surgery Date(Month/Year) Vagal nerve stimulator 05/2019 cholecystectomy Hospitalization History Reason Date(Month/Year) see surgical
[2025-02-28 10:30] VITALS: BP 117/80; PULSE 91; RESP 17; TEMP 36.7; O2SAT 96; BMI 41.1
--- NOTE | 2025-02-28 11:52 | ED_ITS ---
HPI - Seizure 2 General: Chief Complaint: Seizure Stated Complaint: daily seizures [id number] Time Seen by Provider: 02/28/25 10:13 History of Present Illness: HPI Narrative: 29-year-old female presents to the emerg ency room reporting multiple seizures. She has a known history of seizure disorder she is on Lamictal and Keppra. No recent medication adjustments. Her last seizure was approximately 36 hours ago she said she has had several over the last 3 weeks. She usually sees Dr. Campos. Seizure History: Yes Associated symptoms: Deny chest pain, chills or fever(s) Related Data Home Medications ?Medication ?Instructions ?Recorded ?Confirmed lorazepam 2 mg/mL oral concentrate See Rx Instructions .Route .COMPLEX 07/13/24 02/28/25 levonorgestrel 17.5 mcg/24 hr (up 1 device intrauterin e .[id number] 11/22/24 02/28/25 to 5 yrs) 19.5mg intrauterine device (Kyleena) Previous Rx's ?Medication ?Instructions ?Recorded lamotrigine 200 mg tablet,extended 200 mg PO BID #60 t abs 07/30/24 release 24 hr (Lamictal XR) levetiracetam 750 mg 750 mg PO BID #60 tabs 07/30 tablet,extended release 24 hr galcanezumab-gnlm 120 mg/mL 120 mg SUBCUT Q30D 90 days #3 mL 12/09/24 subcutaneous pen injector (Emgality Pen) lorazepam 1 mg tablet See Rx Instructions PO DAILY PRN 12/28/24 anxiety/insomnia #30 tabs topiramate 50 mg tablet 50 mg PO DAILY #90 tabs 09/24 paroxetine HCl 20 mg tablet 20 mg PO DAILY #30 tabs levetiracetam 500 mg 500 mg PO BID #60 tabs 02/28 tablet,extended release 24 hr (Keppra XR) Allergies Allergy/AdvReac Type Severity Reaction Status Date / Time danielle Allergy Mild ALGY-Conges Verified 02/07/25 14:46 suzan cat dander Allergy Unknown Verified 02/07/25 14:46 dog dander Allergy Unknown Verified 02/07/25 14:46 latex Allergy ALGY-Rash Verified 02/07/25 14:46 mold Allergy Unknown Verified 02/07/25 14:46 adhesive tape AdvReac Severe Unknown Verified 02/07/25 14:46 prednisone AdvReac Intermediate Shaky & Verified 02/07/25 14:46 abd pain Review of Systems 2 Const: Denies: fever(s) or chills Card: Denies: chest pain Resp: Denies: dyspnea GI: Denies: abdominal pain : Denies: dysuria, urinary frequency or urinary urgency Musc: Denies: neck pain or back pain Skin/Breast: Denies: rash PFSH ED 2 PFSH: Medical History Generalized epilepsy, intractable Anxiety Hereditary and idiopathic neuropathy Depressed mood Mood disorder Psychiatric care Surgical History History of cholecystectomy History of eye surgery Status post placement of VNS (vagus nerve stimulation) device Family History Other Diabetes Denies family history of Cervical cancer Ovarian cancer Breast cancer Hypertension Uterine cancer Stroke Social History Smoking and tobacco/nicotine status: never used tobacco/nicotine Second hand smoke exposure: Yes Alcohol intake: never Substance/Drug Use: never Adopted: No Caregiver/support person: Yes ([place] [facility]) Lives independently: Yes Household members: none Housing: Apartment Marital status: Single Number of children: 0 Highest education level completed: Associate Degree: Academic Program Education level details: associates in general studies service: No Current occupational status: disabled Pets and animals: Yes (Peaches- male) Pets & animals: cat(s) Leisure activites: music, reading and other Leisure activities details: watch TV and play with cat Sexually active: No Do you think of yourself as: Straight/Heterosexual Current gender identity: Female Mili/Orthodoxy: Catholic Special mili needs: No Agree to transfusion: Yes Female Reproductive History: Para: 0 Physical Exam 2 Const: COMMON NORMALS: no acute distress GENERAL APPEARANCE: cooperative and comfortable ORIENTATION/CONSCIOUSNESS: Yes awake, Yes oriented to person, Yes oriented to place and Yes oriented to time HENMT: COMMON NORMALS: normocephalic, atraumatic and hearing grossly normal bilaterally HEAD & SCALP: normocephalic and atraumatic Resp: COMMON NORMALS: normal respiratory effort, No retractions, No use of accessory muscles and clear to auscultation bilaterally AUSCULTATION: clear to auscultation bilaterally Cardio: COMMON NORMALS: regular rate, regular rhythm and No murmurs present (Cardio) RATE: regular rate RHYTHM: regular rhythm GI: COMMON NORMALS: Soft to palpation and No hepatosplenomegaly present A USCULTATION: Yes normoactive bowel sounds PALPATION: Yes Soft to palpation, No Tenderness to palpation present (GI), No Guarding due to palpation present (GI) and Yes No hepatosplenomegaly present Extremity: COMMON NORMALS: normal to inspection, capillary refill normal, no clubbing, cyanosis or edema, no calf tenderness and no pedal edema Neuro: SENSORIUM/ORIENTATION: Yes oriented to person, Yes oriented to place and Yes oriented to time Skin: COMMON NORMALS: no rashes or lesions noted GENERAL SKIN EXAM: no rashes or lesions noted Course 2 Vital Signs: Vital signs: Vital Signs Temperature 98.1 F 02/28/25 10:30 Pulse Rate 71 02/28/25 14:42 Respiratory Rate 16 02/28/25 14:42 Blood Pressure 148/127 02/28/25 14:42 Pulse Oximetry 92 02/28/25 14:42 Oxygen Delivery Me thod Room Air 02/28/25 14:07 MDM - Seizure MDM Narrative Medical decision making narrative: Normal exam her last seizure was 36 hours ago discussed with her neurologist she recommends increasing by a gram of Keppra per day to 1250 mg extended release Keppra twice a day. Prescription sent and recommend she follow-up with Dr. Campos in the office as soon as she is able. Return if has further problems. Medical Records Attestation: I reviewed the patient's medical records. Lab Data Attestation: I reviewed the patient's lab results. 02/28/25 13:27 02/28/25 13:27 Labs: Laboratory Results WBC 7.52 10^3/uL (3.29-11.43) 02/28/25 13:27 RBC 4.48 10^6/uL (3.85-5.65) 02/28/25 13:27 Hgb 14.20 g/dL (11.27-16.99) 02/28/25 13:27 Hct 42.4 % (36-47) 02/28/25 13:27 MCV 94.6 fl (85-98) 02/28/25 13:27 MCH 31.7 pg (27-33) 02/28/25 13:27 MCHC 33.5 g/dL (30-55) 02/28/25 13:27 RDW 11.6 % (12.1-15.1) L 02/28/25 13:27 Plt Count 251 10^3/cmm (157-399) 02/28/25 13:27 MPV 10.1 fL (7.4-10.4) 02/28/25 13:27 Neut % (Auto) 55.9 % 02/28/25 13:27 Lymph % (Auto) 36.4 % 02/28/25 13:27 [place] % (Auto) 5.7 % 02/28/25 13:27 Eos % (Auto) 0.9 % 02/28/25 13:27 Baso % (Auto) 0.8 % 02/28/25 13:27 Neut # (Auto) 4.20 10^3/uL (1.8-7.7) 02/28/25 13:27 Lymph # (Auto) 2.7 10^3/uL (0.8-4.8) 02/28/25 13:27 [place] # (Auto) 0.4 10^3/uL (0.2-0.9) 02/28/25 13:27 Eos # (Auto) 0.1 10^3/uL (0.0-0.8) 02/28/25 13:27 Baso # (Auto) 0.1 10^3/uL (0.0-0.1) 02/28/25 13:27 Nucleated RBC % (auto) 0 % 02/28/25 13:27 Nucleated RBCs # 0.0 /100WBC 02/28/25 13:27 Sodium 138 mmol/L (136-145) 02/28/25 13:27 Potassium 3.8 mmol/L (3.5-5.1) 02/28/25 13:27 Chloride 104 mmol/L (98-107) 02/28/25 13:27 Carbon Dioxide 22 mmol/L (22-29) 02/28/25 13:27 Anion Gap 15.8 (5-19) 02/28/25 13:27 BUN 13 mg/dL (6-20) 02/28/25 13:27 Creatinine 0.9 mg/dL (0.5-0.9) 02/28/25 13:27 GFR Calculation 75.1 mL/min (90-130) L 02/28/25 13:27 Glucose 89 mg/dL (65-115) 02/28/25 13:27 Calculated Osmolality 286 mOsm/kg (285-295) 02/28/25 13:27 Calcium 9.2 mg/dL (8.5-10.5) 02/28/25 13:27 Total Bilirubin 0.3 mg/dL (0.15-1.2) 02/28/25 13:27 AST 15 U/L (0-32) 02/28/25 13:27 ALT 12 U/L (0-33) 02/28/25 13:27 Alkaline Phosphatase 101 U/L (35-105) 02/28/25 13:27 Total Protein 7.7 g/dL (6.6-8.7) 02/28/25 13:27 Albumin 4.3 g/dL (3.5-5.2) 02/28/25 13:27 Globulin 3.4 g/dL (1.3-4.6) 02/28/25 13:27 Levetiracetam 27.8 mcg/mL (6.0-46.0) 02/28/25 13:27 No radiology studies performed this visit Discharge Plan Discharge Patient Disposition: Home Clinical Impression: Primary generalized epilepsy, major Condition: Stable Prescriptions: New levetiracetam [Keppra XR] 500 mg tablet extended release 24 hr 500 mg PO BID Qty: 60 0RF No Action Kyleena 17.5 mcg/24 hr (5 yrs) 19.5 mg intrauterine device 1 device intrauterine .[id number] paroxetine HCl 20 mg tablet 20 mg PO DAILY Qty: 30 3RF lorazepam 1 mg tablet See Rx Instructions PO DAILY PRN (Reason: anxiety/insomnia) Qty: 30 1RF Rx Instructions: Take one-half to one tablet at bedtime, if needed for anxiety/insomnia lamotrigine [Lamictal XR] 200 mg tablet extended release 24hr 200 mg PO BID Qty: 60 5RF levetiracetam 750 mg tablet extended release 24 hr 750 mg PO BID Qty: 60 5RF Emgality Pen 120 mg/mL pen injector 120 mg SUBCUT Q30D 90 Days Qty: 3 3RF topiramate 50 mg tablet 50 mg PO DAILY Qty: 90 3RF lorazepam 2 mg/mL concentrate See Rx Instructions .ROUTE .COMPLEX Rx Instructions: TAKE 1 ML AT ONSET OF SEIZURE. DO NOT EXCEED 2 DOSES PER DAY. Discharge Orders: Discharge ED (Routine); Ordered 02/28/25 Ordered By: Terry Suazo Discharge Diet: Usual diet Discharge Activity: Resume usual activity Patient Instructions: Opioid Safety, Pain Management, Patient Portal & Mauricio Instructions Activity Restrictions/Additional Instructions: Thank you for choosing [facility] for your healthcare needs today. It is very important that you follow up as instructed or that you return to the Emergency Department should you have concerns or if your condition changes or worsens in any way. Emergency department visits are focused on emergent conditions, in some cases you may require further evaluation on an outpatient basis. You were seen today with a report of increasing frequency of seizures. Medication levels were drawn. I discussed your case with your usual neurologist she recommends increasing her Keppra. Recommend that you add another 500 mg twice a day along with the current dose of 750 twice a day that you are taking. Contact Dr. Campos's office for a follow-up appointment. (Please note that included in your discharge packet is information concerning opioid safety and pain management. This information is given to all patients were discharged from the ER regardless of their discharge diagnosis or the medicines they usually take or are prescribed.) Print Language: South African Coding Level of Care Code ED Bottle Sorter for James Wagner
[2025-02-28 12:49] VITALS: BP 128/92; PULSE 68; RESP 16; O2SAT 99
[2025-02-28 13:47] LABS: Hematocrit 42.4 % (36-47); Hemoglobin 14.20 g/dL (11.27-16.99); Mean Corpuscular HGB Conc 33.5 g/dL (30-55); Mean Corpuscular Hemoglobin 31.7 pg (27-33); Mean Corpuscular Volume 94.6 fl (85-98); Nucleated Red Blood Cells % 0 %; Platelet Count 251 10^3/cmm (157-399); Red Blood Count 4.48 10^6/uL (3.85-5.65); White Blood Count 7.52 10^3/uL (3.29-11.43)
[2025-02-28 14:07] VITALS: BP 142/65; PULSE 69; RESP 14; O2SAT 99
[2025-02-28 14:08] LABS: Alanine Aminotransferase 12 U/L (0-33); Albumin Level 4.3 g/dL (3.5-5.2); Alkaline Phosphatase 101 U/L (35-105); Anion Gap 15.8 (5-19); Aspartate Amino Transferase 15 U/L (0-32); Blood Urea Nitrogen 13 mg/dL (6-20); Calcium 9.2 mg/dL (8.5-10.5); Carbon Dioxide 22 mmol/L (22-29); Chloride 104 mmol/L (98-107); Creatinine Clr Calc Pharmacy 105.0668; Globulin 3.4 g/dL (1.3-4.6); Glucose 89 mg/dL (65-115); Osmolality Calculated 286 mOsm/kg (285-295); Potassium 3.8 mmol/L (3.5-5.1); Sodium 138 mmol/L (136-145); Total Protein 7.7 g/dL (6.6-8.7)
[2025-02-28 14:42] VITALS: BP 148/127; PULSE 71; RESP 16; O2SAT 92
[2025-03-01 08:54] LABS: Levetiracetam Immunoassy 27.8 mcg/mL (6.0-46.0)
== END 2025-02-28 14:42 | disposition home or self-care (01) ==
PROVIDERS: Emergency Provider Family Medicine
DX: G40.409 Other generalized epilepsy and epileptic syndromes, not intractable, without status epilepticus (principal)
CPT/HCPCS: 36415; 80053; 80175; 80177; 85025; 96372; 99284; J1885

== ENCOUNTER → 2025-03-09 11:50 | Outpatient (BNVA) | payer MEDICAID, SELFPAY ==
[2024-08-06 11:37] VITALS: BP 124/79; BMI 39.1
== END ==
PROVIDERS: Visit Provider Specialist
DX: G40.A19 Absence epileptic syndrome, intractable, without status epilepticus (principal); Z96.89 Presence of other specified functional implants; G40.309 Generalized idiopathic epilepsy and epileptic syndromes, not intractable, without status epilepticus; G43.711 Chronic migraine without aura, intractable, with status migrainosus; F60.3 Borderline personality disorder
CPT/HCPCS: 36415; 80175; 95970; 99215

== ENCOUNTER 2025-03-18 11:35 | Emergency (ER) | payer MEDICAID, SELFPAY ==
[2024-08-06 11:37] VITALS: BP 124/79; BMI 39.1
[2025-03-18 11:36] VITALS: BP 107/76; PULSE 79; RESP 16; TEMP 36.9; O2SAT 97; BMI 41.7
--- NOTE | 2025-03-18 11:45 | W.ED.SEIZURE ---
HPI - Seizure General: Chief Complaint: Seizure Stated Complaint: postictal Time Seen by Provider: 03/18/25 11:40 Source: patient Mode of arrival: EMS Limitations: no limitations History of Present Illness: HPI Narrative: Patient is a 29-year-old female with a history of primary generalized epilepsy, borderline personality disorder, chronic migraine disorder, among others here for a concern of seizures. Patient states she lives alone. She states she variance a seizure yesterday while on the couch and believes she experienced another seizure in the middle of the night as she woke up feeling postictal stating she had trouble walking and talking. Upon arrival to the emergency department and during my exam with patient, she is alert and oriented x 3. Her vital signs are stable. She does not appear postictal. 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 She does have a VNS with low battery life. She has followed up with Dr. Campos and has upcoming appointment with neurology in [place] on April 06. complaint: seizure Onset (ago): day(s) (yesterday, middle of night per patient) Witnessed: No Trauma: No Seizure History: Yes Place: Home Associated symptoms: Reports no associated symptoms; Deny chest pain, chills, confusion, fever(s), malaise or syncope Treatments prior to arrival: none Related Data Home Medications ?Medication ?Instructions ?Recorded ?Confirmed lorazepam 2 mg/mL oral concentrate See Rx Instructions .Route .COMPLEX 07/13/24 03/09/25 levonorgestrel 17.5 mcg/24 hr (up 1 device intrauterine .[id number] 11/22/24 03/09/25 to 5 yrs) 19.5mg intrauterine device (Kyleena) Previous Rx's ?Medication ?Instructions ?Recorded lamotrigine 200 mg tablet,extended 200 mg PO BID #60 tabs 07/30/24 release 24 hr (Lamictal XR) levetiracetam 750 mg 750 mg PO BID #60 tabs 07/30/24 tablet,extended release 24 hr lorazepam 1 mg tablet See Rx Instructions PO DAILY PRN 12/28/24 anxiety/insomnia #30 tabs topiramate 50 mg tablet 50 mg PO DAILY #90 tabs 01/03/25 paroxetine HCl 20 mg tablet 20 mg PO DAILY #30 tabs 02/07/25 levetiracetam 500 mg 500 mg PO BID #60 tabs 02/28/25 tablet,extended release 24 hr (Keppra XR) lamotrigine 200 mg tablet 200 mg PO BID #180 tabs 03/09/25 levetiracetam 500 mg tablet 500 mg PO BID #180 tabs 03/09/25 levetiracetam 750 mg tablet 750 mg PO BID #180 tabs 03/09/25 propranolol 20 mg tablet 20 mg PO BID #90 tabs 03/09/25 Allergies Allergy/AdvReac Type Severity Reaction Status Date / Time danielle Allergy Mild ALGY-Conges Verified 03/09/25 12:09 suzan cat dander Allergy Unknown Verified 03/09/25 12:09 dog dander Allergy Unknown Verified 03/09/25 12:09 latex Allergy ALGY-Rash Verified 03/09/25 12:09 mold Allergy Unknown Verified 03/09/25 12:09 adhesive tape AdvReac Severe Unknown Verified 03/09/25 12:09 prednisone AdvReac Intermediate Shaky & Verified 03/09/25 12:09 abd pain Review of Systems Const: Denies: fever(s), chills, body aches, fatigue or malaise Eyes: Denies: change in vision or blurry vision Card: Denies: chest pain, palpitations, irregular heart rhythm, lightheadedness, syncope or dyspnea on exertion Resp: Denies: dyspnea, productive cough or pain on inspiration GI: Denies: abdominal pain, nausea, vomiting, heartburn or diarrhea : Denies: dysuria Musc: Denies: neck pain, back pain or joint pain Skin/Breast: Denies: rash Neuro: Reports: difficulty walking (this AM-resolved) and seizure-like activity; Denies: headache(s), numbness in extremities, weakness in extremities, sensory changes, dizziness, confusion or behavioral changes PFSH ED PFSH: Medical History Generalized epilepsy, intractable Anxiety Hereditary and idiopathic neuropathy Depressed mood Mood disorder Psychiatric care Surgical History History of cholecystectomy History of eye surgery Status post placement of VNS (vagus nerve stimulation) device Family History Other Diabetes Denies family history of Cervical cancer Ovarian cancer Breast cancer Hypertension Uterine cancer Stroke Social History Smoking and tobacco/nicotine status: never used tobacco/nicotine Second hand smoke exposure: Yes Alcohol intake: never Substance/Drug Use: never Adopted: No Caregiver/support person: Yes ([facility]) Lives independently: Yes Household members: none Housing: Apartment Marital status: Single Number of children: 0 Highest education level completed: Associate Degree: Academic Program Education level details: associates in general studies service: No Current occupational status: disabled Pets and animals: Yes (Peaches- male) Pets & animals: cat(s) Leisure activites: music, reading and other Leisure activities details: watch TV and play with cat Sexually active: No Do you think of yourself as: Straight/Heterosexual Current gender identity: Female Mili/Cheondoism: Sabianist Special mili needs: No Agree to transfusion: Yes Female Reproductive History: Para: 0 Physical Exam Const: COMMON NORMALS: no acute distress, patient oriented x3, no limitations, alert and well nourished GENERAL APPEARANCE: cooperative HENMT: COMMON NORMALS: normocephalic and atraumatic HEAD & SCALP: normal to inspection, normocephalic and atraumatic FACE & SINUS: normal facial exam and other (intermittent blinking tic) Eye: COMMON NORMALS: Equal, round and reactive pupils present and EOMs intact bilaterally GENERAL EYE: appearance normal, both eyes and all related structures and normal light reflex PUPIL: Yes Equal, round and reactive pupils present DIRECT OPHTHALMOSCOPY: Yes normal light reflex Neck/C-Spine: COMMON NORMALS: full ROM, no lymphadenopathy, supple and no meningeal signs Chest: COMMONS NORMALS: normal inspection of the chest Resp: COMMON NORMALS: normal respiratory effort and clear to auscultation bilaterally AUSCULTATION: clear to auscultation bilaterally Cardio: COMMON NORMALS: regular rate and regular rhythm RATE: regular rate RHYTHM: regular rhythm GI: COMMON NORMALS: Normal to inspection, nondistended, normoactive bowel sounds present, Soft to palpation, non-tender, No hepatosplenomegaly present and no masses PALPATION: Yes Soft to palpation and Yes No hepatosplenomegaly present : COMMON NORMALS: Yes no CVA tenderness BLADDER/KIDNEY EXAM: Yes no CVA tenderness Back/Pelvis: COMMON NORMALS: no CVA tenderness and thoracic and lumbar spine normal to inspection Extremity: COMMON NORMALS: normal to inspection GENERAL: Yes normal exam except as noted Neuro: MIKY COMA SCALE: document GCS findings Hadley coma scale eye opening: Spontaneous Hadley coma scale verbal response: Orientated Hadley coma scale motor response: Obey commands Miky coma scale total score: 15 COMMON NORMALS: patient oriented x3, CN's II-XII intact bilaterally, moves all extremities, no focal motor deficits, no sensory deficits noted and gait normal SENSORIUM/ORIENTATION: Yes alert MENINGEAL SIGNS: Yes no meningeal signs Skin: COMMON NORMALS: no rashes or lesions noted GENERAL SKIN EXAM: no rashes or lesions noted Course Consultations: Consultation #1: Dr. Campos-very familiar with this patient-recommending a one-time dose of 200 mg Lamictal here in the emergency department-agreed with decision to check Lamictal/Keppra levels; did not recommend any further changes to her daily seizure medications; plan would be to follow-up with her or neurology in [place] at her scheduled appointment on April 06 Vital Signs: Vital signs: Vital Signs Temperature 98.5 F 03/18/25 11:36 Pulse Rate 79 03/18/25 11:36 Respiratory Rate 16 03/18/25 11:36 Blood Pressure 107/76 03/18/25 11:36 Pulse Oximetry 97 03/18/25 11:36 Oxygen Delivery Me thod Room Air 03/18/25 11:36 MDM - Seizure MDM Narrative Medical decision making narrative: Patient is a 29-year-old female with a longstanding history of epilepsy here after she believes she had a seizure yesterday and in the middle of the night. These were unwitnessed. Upon arrival she is alert and oriented. Vital signs are stable. Basic blood work obtained and unremarkable. Further blood work but unlikely to ion exchange operator given her longstanding history of seizures. She does report compliance to her medications. I did consult with her neurologist, Dr. Campso who recommended a dose of Lamictal be given here in the emergency department but did not recommend any further changes to her home medications. We will check Lamictal/Keppra levels today-these are send outs. Dr. Campos states she will follow-up with these. Return ED precautions given. Otherwise she can follow-up with Dr. Campos and/or her neurology team in [place] on April 06 as scheduled. Differential Diagnosis Seizure Differential Diagnosis: Likely intractable seizure disorder, focal seizure, generalized seizure and epileptic seizure Medical Records Attestation: I reviewed the patient's medical records. Lab Data Attestation: I reviewed the patient's lab results. 03/18/25 12:45 03/18/25 12:45 Labs: Laboratory Results WBC 6.04 10^3/uL (3.29-11.43) 03/18/25 12:45 RBC 4.47 10^6/uL (3.85-5.65) 03/18/25 12:45 Hgb 13.90 g/dL (11.27-16.99) 03/18/25 12:45 Hct 41.7 % (36-47) 03/18/25 12:45 MCV 93.3 fl (85-98) 03/18/25 12:45 MCH 31.1 pg (27-33) 03/18/25 12:45 MCHC 33.3 g/dL (30-55) 03/18/25 12:45 RDW 11.9 % (12.1-15.1) L 03/18/25 12:45 Plt Count 239 10^3/cmm (157-399) 03/18/25 12:45 MPV 10.1 fL (7.4-10.4) 03/18/25 12:45 Neut % (Auto) 55.1 % 03/18/25 12:45 Lymph % (Auto) 36.6 % 03/18/25 12:45 Oliver % (Auto) 6.1 % 03/18/25 12:45 Eos % (Auto) 1.2 % 03/18/25 12:45 Baso % (Auto) 0.7 % 03/18/25 12:45 Neut # (Auto) 3.33 10^3/uL (1.8-7.7) 03/18/25 12:45 Lymph # (Auto) 2.2 10^3/uL (0.8-4.8) 03/18/25 12:45 Oliver # (Auto) 0.4 10^3/uL (0.2-0.9) 03/18/25 12:45 Eos # (Auto) 0.1 10^3/uL (0.0-0.8) 03/18/25 12:45 Baso # (Auto) 0.0 10^3/uL (0.0-0.1) 03/18/25 12:45 Nucleated RBC % (auto) 0 % 03/18/25 12:45 Nucleated RBCs # 0.0 /100WBC 03/18/25 12:45 Sodium 142 mmol/L (136-145) 03/18/25 12:45 Potassium 3.5 mmol/L (3.5-5.1) 03/18/25 12:45 Chloride 106 mmol/L (98-107) 03/18/25 12:45 Carbon Dioxide 24 mmol/L (22-29) 03/18/25 12:45 Anion Gap 15.5 (5-19) 03/18/25 12:45 BUN 15 mg/dL (6-20) 03/18/25 12:45 Creatinine 1.1 mg/dL (0.5-0.9) H 03/18/25 12:45 GFR Calculation 59.6 mL/min (90-130) L 03/18/25 12:45 Glucose 92 mg/dL (65-115) 03/18/25 12:45 Calculated Osmolality 294 mOsm/kg (285-295) 03/18/25 12:45 Calcium 9.1 mg/dL (8.5-10.5) 03/18/25 12:45 Total Bilirubin 0.3 mg/dL (0.15-1.2) 03/18/25 12:45 AST 15 U/L (0-32) 03/18/25 12:45 ALT 13 U/L (0-33) 03/18/25 12:45 Alkaline Phosphatase 116 U/L (35-105) H 03/18/25 12:45 Total Protein 7.5 g/dL (6.6-8.7) 03/18/25 12:45 Albumin 4.2 g/dL (3.5-5.2) 03/18/25 12:45 Globulin 3.3 g/dL (1.3-4.6) 03/18/25 12:45 HCG, Qual Negative (Negative) 03/18/25 12:45 Urine Color Yellow (Yellow) 03/18/25 12:25 Urine Appearance Clear (CLEAR) 03/18/25 12:25 Urine pH 7.0 (5-7) 03/18/25 12:25 Ur Specific [place] 1.013 (1.005-1.030) 03/18/25 12:25 Urine Protein Negative (Negative) 03/18/25 12:25 Urine Glucose (UA) Negative (Normal) 03/18/25 12:25 Urine Ketones Negative (Negative) 03/18/25 12:25 Urine Blood Negative (Negative) 03/18/25 12:25 Urine Nitrate Negative (Negative) 03/18/25 12:25 Urine Bilirubin Negative (Negative) 03/18/25 12:25 Urine Urobilinogen 1.0 mg/dL (Negative) 03/18/25 12:25 Ur Leukocyte Esterase Negative (Negative) 03/18/25 12:25 Urine RBC 0-2 /hpf (0-2) 03/18/25 12:25 Urine WBC 0-5 /hpf (0-5) 03/18/25 12:25 Ur Squamous Epith Cells 0-5 /hpf (0-5) 03/18/25 12:25 Amorphous Sediment Not Reportable 03/18/25 12:25 Urine Bacteria None seen /hpf (NONE) 03/18/25 12:25 Hyaline Casts 0.81 /lpf 03/18/25 12:25 No radiology studies performed this visit Discharge Plan Discharge Patient Disposition: Home Clinical Impression: Primary generalized epilepsy, major Condition: Stable Prescriptions: No Action Kyleena 17.5 mcg/24 hr (5 yrs) 19.5 mg intrauterine device 1 device intrauterine .[id number] lamotrigine 200 mg tablet 200 mg PO BID Qty: 180 1RF levetiracetam 500 mg tablet 500 mg PO BID Qty: 180 1RF levetiracetam 750 mg tablet 750 mg PO BID Qty: 180 1RF propranolol 20 mg tablet 20 mg PO BID Qty: 90 1RF paroxetine HCl 20 mg tablet 20 mg PO DAILY Qty: 30 3RF lorazepam 1 mg tablet See Rx Instructions PO DAILY PRN (Reason: anxiety/insomnia) Qty: 30 1RF Rx Instructions: Take one-half to one tablet at bedtime, if needed for anxiety/insomnia lamotrigine [Lamictal XR] 200 mg tablet extended release 24hr 200 mg PO BID Qty: 60 5RF levetiracetam 750 mg tablet extended release 24 hr 750 mg PO BID Qty: 60 5RF topiramate 50 mg tablet 50 mg PO DAILY Qty: 90 3RF lorazepam 2 mg/mL concentrate See Rx Instructions .ROUTE .COMPLEX Rx Instructions: TAKE 1 ML AT ONSET OF SEIZURE. DO NOT EXCEED 2 DOSES PER DAY. levetiracetam [Keppra XR] 500 mg tablet extended release 24 hr 500 mg PO BID Qty: 60 0RF Discharge Orders: Discharge ED (Routine); Ordered 03/18/25 Ordered By: Beryl Daly Patient Instructions: Patient Portal & Mauricio Instructions Print Language: Sri Lankan Coding Level of Care Code ED Busgirl for James Wagner
[2025-03-18 12:44] LABS: Glucose Urine UA Negative (Normal); Nitrate Urine Negative (Negative); Specific Gravity, Urine 1.013 (1.005-1.030)
[2025-03-18 12:49] LABS: Add Urine Microscopic? YES
[2025-03-18 12:59] LABS: Hematocrit 41.7 % (36-47); Hemoglobin 13.90 g/dL (11.27-16.99); Mean Corpuscular HGB Conc 33.3 g/dL (30-55); Mean Corpuscular Hemoglobin 31.1 pg (27-33); Mean Corpuscular Volume 93.3 fl (85-98); Nucleated Red Blood Cells % 0 %; Platelet Count 239 10^3/cmm (157-399); Red Blood Count 4.47 10^6/uL (3.85-5.65); White Blood Count 6.04 10^3/uL (3.29-11.43)
[2025-03-18 13:11] LABS: HCG, Serum Qual Negative (Negative)
[2025-03-18 13:17] LABS: Alanine Aminotransferase 13 U/L (0-33); Albumin Level 4.2 g/dL (3.5-5.2); Alkaline Phosphatase 116 U/L (35-105); Anion Gap 15.5 (5-19); Aspartate Amino Transferase 15 U/L (0-32); Blood Urea Nitrogen 15 mg/dL (6-20); Calcium 9.1 mg/dL (8.5-10.5); Carbon Dioxide 24 mmol/L (22-29); Chloride 106 mmol/L (98-107); Creatinine Clr Calc Pharmacy 86.6240; Globulin 3.3 g/dL (1.3-4.6); Glucose 92 mg/dL (65-115); Osmolality Calculated 294 mOsm/kg (285-295); Potassium 3.5 mmol/L (3.5-5.1); Sodium 142 mmol/L (136-145); Total Protein 7.5 g/dL (6.6-8.7)
[2025-03-18 13:42] VITALS: BP 116/76; PULSE 76; RESP 16; O2SAT 96
[2025-03-19 11:24] LABS: Levetiracetam Immunoassy 30.2 mcg/mL (6.0-46.0)
== END 2025-03-18 13:58 | disposition home or self-care (01) ==
PROVIDERS: Emergency Provider Physician Assistant
DX: G40.409 Other generalized epilepsy and epileptic syndromes, not intractable, without status epilepticus (principal)
CPT/HCPCS: 36415; 80053; 80175; 80177; 81001; 84703; 85025; 99283; J9999